=== PATIENT | female | born 1955 | race Caucasian/White ===

== ENCOUNTER 2016-11-14 21:14 | Emergency (ER) | payer MEDICAID ==
[~2016-11-14] VITALS: Ht 157.5 cm; Wt 77.0 kg
[~2016-11-14 21:14] MED LIST: AMLO-512 PO; DIVA250T25 PO; HYDR25TA84 PO; LISI-662 PO; OMEP20 PO; ZIPR80CA2 PO
[2016-11-14 23:50] LABS: EOSINOPHILS % (AUTO) 0.4 % (1.0-6.0); HEMATOCRIT 37.4 % (36-46); HEMOGLOBIN 12.5 g/dL (12.0-16.0); LYMPHOCYTES # (AUTO) 1.1 K/uL (1.0-4.8); LYMPHOCYTES % (AUTO) 15.4 % (22.0-44.0); MEAN CORPUSCULAR HEMOGLOBIN 32.1 pg (26.0-34.0); MEAN CORPUSCULAR HGB CONC 33.3 G/dL (31.0-37.0); MEAN CORPUSCULAR VOLUME 96 fL (80-100); MONOCYTES # (AUTO) 0.5 K/uL (0.1-1.0); MONOCYTES % (AUTO) 7.1 % (2.0-9.0); NEUTROPHILS # (AUTO) 5.4 K/uL (1.8-7.7); NEUTROPHILS % (AUTO) 77.1 % (40.0-70.0); PLATELET COUNT (AUTO) 251 K/uL (150-450); RED BLOOD CELL COUNT(AUTO) 3.88 MIL/uL (4.00-5.20); RED CELL DISTRIBUTION WIDTH 13.8 % (11.5-14.5)
[2016-11-15 00:10] LABS: ANION GAP 9 mmol/L (8-16); CALCIUM, TOTAL 8.9 mg/dL (8.8-10.5); CARBON DIOXIDE 27 mmol/L (22-29); CHLORIDE 101 mmol/L (98-107); CREATININE 0.95 mg/dL (0.60-1.30); GLOMERULAR FILTR. RATE CALC 60 mL/min (>60); POTASSIUM 3.6 mmol/L (3.5-5.1); SODIUM SERUM 137 mmol/L (136-145); UREA NITROGEN, BLOOD 21 mg/dL (7-18)
[2016-11-15 00:16] LABS: ALANINE AMINOTRANSFERASE 22 U/L (12-78); ALBUMIN 3.6 g/dL (3.4-5.0); ASPARTATE AMINOTRANSFERASE 16 U/L (15-37); BILIRUBIN,TOTAL 0.6 mg/dL (0.1-1.0); TOTAL PROTEIN, SERUM 6.5 g/dL (6.4-8.2)
[2016-11-15 00:17] LABS: VALPROIC ACID < 3 mcg/mL (50-100)
[2016-11-15 01:47] VITALS: BP 148/63
== END 2016-11-15 01:48 | disposition home or self-care (01) ==
LOC: EMS 21:15
DX: F20.9 Schizophrenia, unspecified (principal); R46.89 Other symptoms and signs involving appearance and behavior; I10 Essential (primary) hypertension; F14.90 Cocaine use, unspecified, uncomplicated; F17.210 Nicotine dependence, cigarettes, uncomplicated
CPT/HCPCS: 36415; 80053; 80164; 80307; 85025; 99285; 99406; G0480

== ENCOUNTER 2017-05-12 17:16 | Inpatient (IN) | payer MEDICAID ==
[~2017-05-12] VITALS: Ht 160 cm; Wt 98.4 kg
[2017-05-12 18:30] VITALS: BP 95/61
[2017-05-12] MEDS ORDERED: PNEUMOCOCCAL VACCINE POLYVALENT 0.5 ML VIAL [PPSV23] IM ONE (18:45)
[2017-05-12] MEDS ORDERED: INFLUENZA VIRUS VACCINE QVS 2017-18 (3YR+)/PF 60 MCG/0.5 ML SYRINGE IM ONE (18:45)
[2017-05-12] MEDS: DiphenhydrAMINE HCL 25 MG CAPSULE PO SCH ×2 (20:30→21:00)
[2017-05-12] MEDS: DIVALPROEX SODIUM 500 MG ER TABLET PO SCH ×2 (20:30→21:00)
[2017-05-13 06:12] VITALS: BP 138/77
[2017-05-13] MEDS: OMEPRAZOLE 20 MG CAPSULE PO SCH (06:30)
[2017-05-13] MEDS: ZIPRASIDONE HCL 60 MG CAPSULE PO SCH ×2 (07:00→17:00)
[2017-05-13 08:35] LABS: BASOPHILS # (AUTO) 0.03 K/uL (0.00-0.20); BASOPHILS % (AUTO) 0.6 % (0.0-2.0); EOSINOPHILS # (AUTO) 0.07 K/uL (0.00-0.70); EOSINOPHILS % (AUTO) 1.63 % (1.0-6.0); HEMATOCRIT 38.1 % (36-46); HEMOGLOBIN 12.6 g/dL (12.0-16.0); LYMPHOCYTES # (AUTO) 1.1 K/uL (1.0-4.8); LYMPHOCYTES % (AUTO) 24.1 % (22.0-44.0); MEAN CORPUSCULAR HEMOGLOBIN 32.8 pg (26.0-34.0); MEAN CORPUSCULAR VOLUME 99 fL (80-100); MONOCYTES # (AUTO) 0.5 K/uL (0.1-1.0); MONOCYTES % (AUTO) 10.2 % (2.0-9.0); NEUTROPHILS # (AUTO) 2.8 K/uL (1.8-7.7); NEUTROPHILS % (AUTO) 63.4 % (40.0-70.0); PLATELET COUNT (AUTO) 251 K/uL (150-450); RED BLOOD CELL COUNT(AUTO) 3.84 MIL/uL (4.00-5.20)
[2017-05-13 08:39] LABS: HEMOGLOBIN A1C 5.9 % (4.5-6.2)
[2017-05-13] MEDS: NYSTATIN 15 GM POWDER BOTTLE TP SCH ×2 (09:00→17:00)
[2017-05-13] MEDS: HydrALAZINE HCL 25 MG TABLET PO SCH ×3 (09:00→16:51)
[2017-05-13] MEDS: LISINOPRIL 20 MG TABLET PO SCH (09:00)
[2017-05-13] MEDS ORDERED: AmLODIPine BESYLATE 10 MG TABLET PO SCH (09:00)
[2017-05-13 09:04] LABS: ALANINE AMINOTRANSFERASE 21 U/L (12-78); ALBUMIN 3.2 g/dL (3.4-5.0); ALKALINE PHOSPHATASE 59 U/L (46-116); ANION GAP 7 mmol/L (8-16); ASPARTATE AMINOTRANSFERASE 16 U/L (15-37); BILIRUBIN,TOTAL 0.4 mg/dL (0.1-1.0); CARBON DIOXIDE 28 mmol/L (22-29); CHLORIDE 105 mmol/L (98-107); CHOLESTEROL 158 mg/dL (131-200); CREATININE 0.76 mg/dL (0.60-1.30); FREE T4 (FREE THYROXINE) 0.94 ng/dL (0.76-1.46); GLOMERULAR FILTR. RATE CALC > 60 mL/min (>60); GLUCOSE,RANDOM 94 mg/dL (70-110); HDL CHOLESTEROL 80 mg/dL (40-60); LDL CHOL (CALC.) 64 mg/dL (0-130); POTASSIUM 4.7 mmol/L (3.5-5.1); SODIUM SERUM 140 mmol/L (136-145); THYROID STIMULATING HORMONE 1.06 uIU/mL (0.36-3.74); TOTAL PROTEIN, SERUM 5.9 g/dL (6.4-8.2); TRIGLYCERIDES 68 mg/dL (15-150); UREA NITROGEN, BLOOD 19 mg/dL (7-18)
[2017-05-13 09:25] VITALS: BP 165/75
[2017-05-13] MEDS ORDERED: IBUPROFEN 600 MG TABLET PO PRN (13:15)
[2017-05-13] MEDS ORDERED: LOPERAMIDE HCL 2 MG CAPSULE PO PRN (13:15)
[2017-05-13] MEDS ORDERED: MAG HYDROX/AL HYDROX/SIMETH ES 30 ML SUSPENSION UDCUP PO PRN (13:15)
[2017-05-13] MEDS ORDERED: BACITRACIN 28.4 GM OINTMENT TP PRN (13:15)
[2017-05-13] MEDS ORDERED: MAGNESIUM HYDROXIDE SUSPENSION 30 ML UDCUP PO PRN (13:15)
[2017-05-13] MEDS ORDERED: CloNIDine HCL 0.1 MG TABLET PO PRN (13:15)
[2017-05-13] MEDS ORDERED: ACETAMINOPHEN 325 MG TABLET PO PRN (13:15)
[2017-05-13] MEDS ORDERED: ALBUTEROL SULFATE HFA 90 MCG/PUFF 8 GM INHALER IH PRN (13:15)
[2017-05-13] MEDS ORDERED: ONDANSETRON HCL 4 MG TABLET PO PRN (13:15)
[2017-05-13] MEDS ORDERED: BENZOCAINE/MENTHOL LOZENGE MM PRN (13:15)
[2017-05-13] MEDS ORDERED: PETROLATUM,WHITE 71 GM JELLY TP PRN (13:15)
[2017-05-13] MEDS: CEPHALEXIN MONOHYDRATE 500 MG CAPSULE PO SCH (17:00)
[2017-05-13] MEDS: DIVALPROEX SODIUM 500 MG ER TABLET PO SCH (21:00)
[2017-05-13] MEDS: DiphenhydrAMINE HCL 25 MG CAPSULE PO SCH (21:00)
[2017-05-14 06:14] VITALS: BP 135/81
[2017-05-14] MEDS: OMEPRAZOLE 20 MG CAPSULE PO SCH (06:22)
[2017-05-14] MEDS: ZIPRASIDONE HCL 60 MG CAPSULE PO SCH ×2 (06:23→16:21)
[2017-05-14 08:48] VITALS: BP 129/84
[2017-05-14] MEDS: NYSTATIN 15 GM POWDER BOTTLE TP SCH ×2 (09:00→16:22)
[2017-05-14] MEDS: LISINOPRIL 20 MG TABLET PO SCH (09:04)
[2017-05-14] MEDS: LORazepam 2 MG TABLET PO PRN (09:04)
[2017-05-14] MEDS: CHOLECALCIFEROL (VIT D3) 1,000 UNITS TABLET PO SCH (09:04)
[2017-05-14] MEDS: CEPHALEXIN MONOHYDRATE 500 MG CAPSULE PO SCH ×3 (09:04→16:21)
[2017-05-14] MEDS: HydrALAZINE HCL 25 MG TABLET PO SCH ×3 (09:04→16:21)
[2017-05-14 16:00] VITALS: BP 151/60
[2017-05-14] MEDS: DiphenhydrAMINE HCL 25 MG CAPSULE PO SCH (21:00)
[2017-05-14] MEDS: DIVALPROEX SODIUM 500 MG ER TABLET PO SCH (21:00)
[2017-05-15] MEDS: OMEPRAZOLE 20 MG CAPSULE PO SCH (06:30)
[2017-05-15] MEDS: ZIPRASIDONE HCL 60 MG CAPSULE PO SCH ×2 (06:41→16:34)
[2017-05-15] MEDS: HydrALAZINE HCL 25 MG TABLET PO SCH ×3 (08:30→16:34)
[2017-05-15] MEDS: LISINOPRIL 20 MG TABLET PO SCH (08:30)
[2017-05-15] MEDS: CEPHALEXIN MONOHYDRATE 500 MG CAPSULE PO SCH ×3 (08:30→16:34)
[2017-05-15] MEDS: CHOLECALCIFEROL (VIT D3) 1,000 UNITS TABLET PO SCH (08:30)
[2017-05-15] MEDS: NYSTATIN 15 GM POWDER BOTTLE TP SCH ×2 (09:00→17:00)
[2017-05-15 16:18] VITALS: BP 141/88
[2017-05-15] MEDS: DIVALPROEX SODIUM 500 MG ER TABLET PO SCH (21:14)
[2017-05-15] MEDS: DiphenhydrAMINE HCL 25 MG CAPSULE PO SCH (21:14)
[2017-05-16] MEDS: OMEPRAZOLE 20 MG CAPSULE PO SCH (06:30)
[2017-05-16] MEDS: ZIPRASIDONE HCL 60 MG CAPSULE PO SCH ×2 (07:18→16:29)
[2017-05-16] MEDS: LISINOPRIL 20 MG TABLET PO SCH (08:28)
[2017-05-16] MEDS: CEPHALEXIN MONOHYDRATE 500 MG CAPSULE PO SCH ×3 (08:28→16:29)
[2017-05-16] MEDS: CHOLECALCIFEROL (VIT D3) 1,000 UNITS TABLET PO SCH (08:29)
[2017-05-16] MEDS: HydrALAZINE HCL 25 MG TABLET PO SCH ×3 (08:29→16:29)
[2017-05-16 08:51] VITALS: BP 125/84
[2017-05-16] MEDS: NYSTATIN 15 GM POWDER BOTTLE TP SCH ×2 (09:00→16:29)
[2017-05-16 16:42] VITALS: BP 123/77
[2017-05-16] MEDS: DIVALPROEX SODIUM 500 MG ER TABLET PO SCH (20:17)
[2017-05-16] MEDS: DiphenhydrAMINE HCL 25 MG CAPSULE PO SCH (20:17)
[2017-05-17 06:13] VITALS: BP 135/62
[2017-05-17] MEDS: ZIPRASIDONE HCL 60 MG CAPSULE PO SCH ×2 (06:15→16:23)
[2017-05-17] MEDS: OMEPRAZOLE 20 MG CAPSULE PO SCH (06:15)
[2017-05-17 08:50] VITALS: BP 119/68
[2017-05-17] MEDS: NYSTATIN 15 GM POWDER BOTTLE TP SCH ×2 (09:00→17:00)
[2017-05-17] MEDS: CHOLECALCIFEROL (VIT D3) 1,000 UNITS TABLET PO SCH (09:05)
[2017-05-17] MEDS: HydrALAZINE HCL 25 MG TABLET PO SCH ×3 (09:05→16:23)
[2017-05-17] MEDS: CEPHALEXIN MONOHYDRATE 500 MG CAPSULE PO SCH ×3 (09:05→16:23)
[2017-05-17] MEDS: LISINOPRIL 20 MG TABLET PO SCH (09:05)
[2017-05-17 16:30] VITALS: BP 140/81
[2017-05-17] MEDS: DiphenhydrAMINE HCL 25 MG CAPSULE PO SCH (20:21)
[2017-05-17] MEDS: DIVALPROEX SODIUM 500 MG ER TABLET PO SCH (20:21)
[2017-05-18 06:09] VITALS: BP 141/83
[2017-05-18] MEDS: OMEPRAZOLE 20 MG CAPSULE PO SCH (06:28)
[2017-05-18] MEDS: ZIPRASIDONE HCL 80 MG CAPSULE PO SCH ×2 (06:28→16:29)
[2017-05-18 08:44] VITALS: BP 122/71
[2017-05-18] MEDS: HydrALAZINE HCL 25 MG TABLET PO SCH ×3 (09:00→16:29)
[2017-05-18] MEDS: CEPHALEXIN MONOHYDRATE 500 MG CAPSULE PO SCH ×4 (09:00→16:29)
[2017-05-18] MEDS: CHOLECALCIFEROL (VIT D3) 1,000 UNITS TABLET PO SCH (09:00)
[2017-05-18] MEDS: LISINOPRIL 20 MG TABLET PO SCH (09:00)
[2017-05-18] MEDS: NYSTATIN 15 GM POWDER BOTTLE TP SCH ×2 (09:00→17:00)
[2017-05-18 16:28] VITALS: BP 125/86
[2017-05-18] MEDS: DIVALPROEX SODIUM 500 MG ER TABLET PO SCH (20:37)
[2017-05-18] MEDS: DiphenhydrAMINE HCL 25 MG CAPSULE PO SCH (20:37)
[2017-05-19 00:54] VITALS: BP 110/59
[2017-05-19] MEDS: OMEPRAZOLE 20 MG CAPSULE PO SCH (06:42)
[2017-05-19] MEDS: ZIPRASIDONE HCL 80 MG CAPSULE PO SCH ×2 (06:42→16:56)
[2017-05-19 08:17] VITALS: BP 108/63
[2017-05-19] MEDS: CEPHALEXIN MONOHYDRATE 500 MG CAPSULE PO SCH ×3 (08:36→16:56)
[2017-05-19] MEDS: HydrALAZINE HCL 25 MG TABLET PO SCH ×3 (08:36→16:56)
[2017-05-19] MEDS: LISINOPRIL 20 MG TABLET PO SCH ×2 (08:36→09:00)
[2017-05-19] MEDS: CHOLECALCIFEROL (VIT D3) 1,000 UNITS TABLET PO SCH (08:36)
[2017-05-19] MEDS: NYSTATIN 15 GM POWDER BOTTLE TP SCH ×2 (08:36→16:56)
[2017-05-19 17:25] VITALS: BP 143/74
[2017-05-19] MEDS: DIVALPROEX SODIUM 500 MG ER TABLET PO SCH (20:18)
[2017-05-19] MEDS: DiphenhydrAMINE HCL 25 MG CAPSULE PO SCH (20:18)
[2017-05-20] MEDS: ZIPRASIDONE HCL 80 MG CAPSULE PO SCH ×2 (06:24→17:42)
[2017-05-20] MEDS: OMEPRAZOLE 20 MG CAPSULE PO SCH (06:24)
[2017-05-20 08:38] VITALS: BP 130/68
[2017-05-20] MEDS: NYSTATIN 15 GM POWDER BOTTLE TP SCH ×2 (09:00→17:42)
[2017-05-20] MEDS: LISINOPRIL 20 MG TABLET PO SCH (09:39)
[2017-05-20] MEDS: CEPHALEXIN MONOHYDRATE 500 MG CAPSULE PO SCH ×3 (09:39→17:42)
[2017-05-20] MEDS: HydrALAZINE HCL 25 MG TABLET PO SCH ×3 (09:39→17:42)
[2017-05-20] MEDS: CHOLECALCIFEROL (VIT D3) 1,000 UNITS TABLET PO SCH (09:39)
[2017-05-20 16:00] VITALS: BP 104/60
[2017-05-20] MEDS: DiphenhydrAMINE HCL 25 MG CAPSULE PO SCH (20:17)
[2017-05-20] MEDS: DIVALPROEX SODIUM 500 MG ER TABLET PO SCH (20:17)
[2017-05-21] MEDS: ZIPRASIDONE HCL 80 MG CAPSULE PO SCH ×2 (06:33→16:15)
[2017-05-21] MEDS: OMEPRAZOLE 20 MG CAPSULE PO SCH (06:33)
[2017-05-21 07:06] VITALS: BP 114/62
[2017-05-21 08:43] VITALS: BP 126/72
[2017-05-21] MEDS: CEPHALEXIN MONOHYDRATE 500 MG CAPSULE PO SCH ×3 (09:09→16:15)
[2017-05-21] MEDS: CHOLECALCIFEROL (VIT D3) 1,000 UNITS TABLET PO SCH (09:10)
[2017-05-21] MEDS: NYSTATIN 15 GM POWDER BOTTLE TP SCH ×2 (09:10→16:15)
[2017-05-21] MEDS: HydrALAZINE HCL 25 MG TABLET PO SCH ×3 (09:10→16:15)
[2017-05-21] MEDS: LISINOPRIL 20 MG TABLET PO SCH (09:10)
[2017-05-21 16:46] VITALS: BP 153/88
[2017-05-21 18:43] VITALS: BP 138/60
[2017-05-21] MEDS: DiphenhydrAMINE HCL 25 MG CAPSULE PO SCH (20:34)
[2017-05-21] MEDS: DIVALPROEX SODIUM 500 MG ER TABLET PO SCH (20:34)
[2017-05-22] MEDS: ZIPRASIDONE HCL 80 MG CAPSULE PO SCH ×2 (06:22→16:44)
[2017-05-22] MEDS: OMEPRAZOLE 20 MG CAPSULE PO SCH (06:22)
[2017-05-22 08:16] VITALS: BP 122/51
[2017-05-22 08:30] VITALS: BP 141/79
[2017-05-22] MEDS: LISINOPRIL 20 MG TABLET PO SCH (08:40)
[2017-05-22] MEDS: NYSTATIN 15 GM POWDER BOTTLE TP SCH ×2 (08:40→17:27)
[2017-05-22] MEDS: HydrALAZINE HCL 25 MG TABLET PO SCH ×3 (08:40→16:44)
[2017-05-22] MEDS: CHOLECALCIFEROL (VIT D3) 1,000 UNITS TABLET PO SCH (08:40)
[2017-05-22] MEDS: CEPHALEXIN MONOHYDRATE 500 MG CAPSULE PO SCH ×3 (08:40→16:44)
[2017-05-22 17:31] VITALS: BP 145/88
[2017-05-22] MEDS: DiphenhydrAMINE HCL 25 MG CAPSULE PO SCH (20:29)
[2017-05-22] MEDS: DIVALPROEX SODIUM 500 MG ER TABLET PO SCH (20:29)
[2017-05-23] MEDS: OMEPRAZOLE 20 MG CAPSULE PO SCH (06:46)
[2017-05-23] MEDS: ZIPRASIDONE HCL 80 MG CAPSULE PO SCH ×2 (06:46→16:29)
[2017-05-23 07:11] VITALS: BP 147/84
[2017-05-23] MEDS: CHOLECALCIFEROL (VIT D3) 1,000 UNITS TABLET PO SCH (08:14)
[2017-05-23] MEDS: CEPHALEXIN MONOHYDRATE 500 MG CAPSULE PO SCH ×2 (08:14→13:29)
[2017-05-23] MEDS: LISINOPRIL 20 MG TABLET PO SCH (08:14)
[2017-05-23] MEDS: NYSTATIN 15 GM POWDER BOTTLE TP SCH ×2 (08:14→17:04)
[2017-05-23] MEDS: HydrALAZINE HCL 25 MG TABLET PO SCH ×3 (08:15→16:29)
[2017-05-23 08:30] VITALS: BP 151/95
[2017-05-23 16:00] VITALS: BP 135/79
[2017-05-23] MEDS: DIVALPROEX SODIUM 500 MG ER TABLET PO SCH (20:20)
[2017-05-23] MEDS: DiphenhydrAMINE HCL 25 MG CAPSULE PO SCH (20:20)
[2017-05-24] MEDS: OMEPRAZOLE 20 MG CAPSULE PO SCH (05:49)
[2017-05-24] MEDS: ZIPRASIDONE HCL 80 MG CAPSULE PO SCH ×2 (06:34→16:57)
[2017-05-24 06:52] VITALS: BP 137/77
[2017-05-24] MEDS: LISINOPRIL 20 MG TABLET PO SCH (08:23)
[2017-05-24] MEDS: NYSTATIN 15 GM POWDER BOTTLE TP SCH ×2 (08:23→16:59)
[2017-05-24] MEDS: CHOLECALCIFEROL (VIT D3) 1,000 UNITS TABLET PO SCH (08:23)
[2017-05-24] MEDS: HydrALAZINE HCL 25 MG TABLET PO SCH ×3 (08:23→16:57)
[2017-05-24 08:25] VITALS: BP 130/75
[2017-05-24 16:30] VITALS: BP 127/92
[2017-05-24] MEDS: DiphenhydrAMINE HCL 25 MG CAPSULE PO SCH (20:07)
[2017-05-24] MEDS: DIVALPROEX SODIUM 500 MG ER TABLET PO SCH (20:07)
[2017-05-25] MEDS: ZIPRASIDONE HCL 80 MG CAPSULE PO SCH ×2 (06:33→17:05)
[2017-05-25] MEDS: OMEPRAZOLE 20 MG CAPSULE PO SCH (06:33)
[2017-05-25 09:20] VITALS: BP 150/85
[2017-05-25] MEDS: HydrALAZINE HCL 25 MG TABLET PO SCH ×3 (09:34→17:05)
[2017-05-25] MEDS: LISINOPRIL 20 MG TABLET PO SCH (09:34)
[2017-05-25] MEDS: CHOLECALCIFEROL (VIT D3) 1,000 UNITS TABLET PO SCH (09:34)
[2017-05-25] MEDS: NYSTATIN 15 GM POWDER BOTTLE TP SCH ×2 (09:35→17:05)
[2017-05-25 16:20] VITALS: BP 146/72
[2017-05-25 18:06] VITALS: BP 142/74
[2017-05-25] MEDS: DiphenhydrAMINE HCL 25 MG CAPSULE PO SCH (20:54)
[2017-05-25] MEDS: DIVALPROEX SODIUM 500 MG ER TABLET PO SCH (20:54)
[2017-05-26 06:07] VITALS: BP 127/58
[2017-05-26] MEDS: OMEPRAZOLE 20 MG CAPSULE PO SCH (06:34)
[2017-05-26] MEDS: ZIPRASIDONE HCL 80 MG CAPSULE PO SCH ×2 (06:34→16:31)
[2017-05-26] MEDS: HydrALAZINE HCL 25 MG TABLET PO SCH ×3 (08:37→16:31)
[2017-05-26] MEDS: NYSTATIN 15 GM POWDER BOTTLE TP SCH ×2 (08:37→17:17)
[2017-05-26] MEDS: LISINOPRIL 20 MG TABLET PO SCH (08:38)
[2017-05-26] MEDS: CHOLECALCIFEROL (VIT D3) 1,000 UNITS TABLET PO SCH (08:38)
[2017-05-26 12:38] VITALS: BP 109/61
[2017-05-26 16:04] VITALS: BP 131/98
[2017-05-26] MEDS: DIVALPROEX SODIUM 500 MG ER TABLET PO SCH (20:07)
[2017-05-26] MEDS: DiphenhydrAMINE HCL 25 MG CAPSULE PO SCH (20:08)
[2017-05-27 05:07] VITALS: BP 127/76
[2017-05-27] MEDS: OMEPRAZOLE 20 MG CAPSULE PO SCH (06:30)
[2017-05-27] MEDS: ZIPRASIDONE HCL 80 MG CAPSULE PO SCH ×2 (06:30→16:14)
[2017-05-27] MEDS: LISINOPRIL 20 MG TABLET PO SCH (08:16)
[2017-05-27] MEDS: HydrOXYzine PAMOATE 25 MG CAPSULE PO SCH ×2 (08:16→16:14)
[2017-05-27] MEDS: HydrALAZINE HCL 25 MG TABLET PO SCH ×3 (08:16→16:14)
[2017-05-27] MEDS: CHOLECALCIFEROL (VIT D3) 1,000 UNITS TABLET PO SCH (08:16)
[2017-05-27] MEDS: NYSTATIN 15 GM POWDER BOTTLE TP SCH ×2 (08:16→16:15)
[2017-05-27 08:22] VITALS: BP 150/86
[2017-05-27 16:09] VITALS: BP 131/75
[2017-05-27] MEDS: DIVALPROEX SODIUM 500 MG ER TABLET PO SCH (20:12)
[2017-05-27] MEDS: DiphenhydrAMINE HCL 25 MG CAPSULE PO SCH (20:12)
[2017-05-28] MEDS: ZIPRASIDONE HCL 80 MG CAPSULE PO SCH ×2 (06:22→16:18)
[2017-05-28] MEDS: OMEPRAZOLE 20 MG CAPSULE PO SCH (06:22)
[2017-05-28 06:59] VITALS: BP 140/70
[2017-05-28] MEDS: HydrALAZINE HCL 25 MG TABLET PO SCH ×3 (09:54→16:18)
[2017-05-28] MEDS: HydrOXYzine PAMOATE 25 MG CAPSULE PO SCH ×2 (09:54→16:18)
[2017-05-28] MEDS: CHOLECALCIFEROL (VIT D3) 1,000 UNITS TABLET PO SCH (09:54)
[2017-05-28] MEDS: NYSTATIN 15 GM POWDER BOTTLE TP SCH ×2 (09:55→16:18)
[2017-05-28] MEDS: LISINOPRIL 20 MG TABLET PO SCH (09:56)
[2017-05-28 10:10] VITALS: BP 129/52
[2017-05-28 13:25] VITALS: BP 11/65
[2017-05-28 16:17] VITALS: BP 126/68
[2017-05-28] MEDS: DIVALPROEX SODIUM 500 MG ER TABLET PO SCH (20:10)
[2017-05-28] MEDS: DiphenhydrAMINE HCL 25 MG CAPSULE PO SCH (20:10)
[2017-05-29] MEDS: ZIPRASIDONE HCL 80 MG CAPSULE PO SCH ×2 (06:25→16:01)
[2017-05-29] MEDS: OMEPRAZOLE 20 MG CAPSULE PO SCH (06:25)
[2017-05-29] MEDS: HydrOXYzine PAMOATE 25 MG CAPSULE PO SCH ×2 (08:13→16:01)
[2017-05-29] MEDS: LISINOPRIL 20 MG TABLET PO SCH (08:13)
[2017-05-29] MEDS: HydrALAZINE HCL 25 MG TABLET PO SCH ×3 (08:14→16:01)
[2017-05-29] MEDS: CHOLECALCIFEROL (VIT D3) 1,000 UNITS TABLET PO SCH (08:14)
[2017-05-29] MEDS: NYSTATIN 15 GM POWDER BOTTLE TP SCH ×2 (08:14→16:01)
[2017-05-29 08:27] VITALS: BP 145/63
[2017-05-29 08:43] LABS: ANION GAP 7 mmol/L (8-16); CALCIUM, TOTAL 9.7 mg/dL (8.8-10.5); CARBON DIOXIDE 33 mmol/L (22-29); CHLORIDE 101 mmol/L (98-107); CREATININE 0.85 mg/dL (0.60-1.30); GLOMERULAR FILTR. RATE CALC > 60 mL/min (>60); GLUCOSE,RANDOM 96 mg/dL (70-110); PHOSPHORUS 4.5 mg/dL (2.5-4.9); POTASSIUM 4.9 mmol/L (3.5-5.1); SODIUM SERUM 141 mmol/L (136-145); UREA NITROGEN, BLOOD 31 mg/dL (7-18)
[2017-05-29 08:50] LABS: HEMATOCRIT 42.5 % (36-46); HEMOGLOBIN 14.5 g/dL (12.0-16.0); MEAN CORPUSCULAR HEMOGLOBIN 32.9 pg (26.0-34.0); MEAN CORPUSCULAR VOLUME 97 fL (80-100); PLATELET COUNT (AUTO) 173 K/uL (150-450); RED BLOOD CELL COUNT(AUTO) 4.39 MIL/uL (4.00-5.20); RED CELL DISTRIBUTION WIDTH 13.1 % (11.5-14.5)
[2017-05-29 09:48] LABS: EOSINOPHILS % (MANUAL) 1 % (1-6); LYMPHOCYTES % (MANUAL) 31 % (22-44); MONOCYTES % (MANUAL) 12 % (2-9); SEGMENTED NEUTROPHILS % 56 % (40-70)
[2017-05-29 16:07] VITALS: BP 119/63
[2017-05-29] MEDS: DIVALPROEX SODIUM 500 MG ER TABLET PO SCH (20:06)
[2017-05-29] MEDS: DiphenhydrAMINE HCL 25 MG CAPSULE PO SCH (20:06)
[2017-05-30 06:20] VITALS: BP 128/65
[2017-05-30] MEDS: OMEPRAZOLE 20 MG CAPSULE PO SCH (06:36)
[2017-05-30] MEDS: ZIPRASIDONE HCL 80 MG CAPSULE PO SCH ×2 (07:01→16:03)
[2017-05-30] MEDS: LISINOPRIL 20 MG TABLET PO SCH (08:28)
[2017-05-30] MEDS: HydrOXYzine PAMOATE 25 MG CAPSULE PO SCH ×2 (08:28→16:03)
[2017-05-30] MEDS: CHOLECALCIFEROL (VIT D3) 1,000 UNITS TABLET PO SCH (08:28)
[2017-05-30] MEDS: HydrALAZINE HCL 25 MG TABLET PO SCH ×3 (08:28→16:03)
[2017-05-30] MEDS: NYSTATIN 15 GM POWDER BOTTLE TP SCH ×2 (08:29→16:03)
[2017-05-30 08:51] VITALS: BP 114/95
[2017-05-30 16:37] VITALS: BP 147/87
[2017-05-30] MEDS: LORazepam 2 MG TABLET PO PRN (17:32)
[2017-05-30] MEDS: DiphenhydrAMINE HCL 25 MG CAPSULE PO SCH (20:01)
[2017-05-30] MEDS: DIVALPROEX SODIUM 500 MG ER TABLET PO SCH (20:01)
[2017-05-31 06:20] VITALS: BP 132/79
[2017-05-31] MEDS: OMEPRAZOLE 20 MG CAPSULE PO SCH (06:28)
[2017-05-31] MEDS: ZIPRASIDONE HCL 80 MG CAPSULE PO SCH ×2 (06:48→16:19)
[2017-05-31] MEDS: CHOLECALCIFEROL (VIT D3) 1,000 UNITS TABLET PO SCH (08:02)
[2017-05-31] MEDS: NYSTATIN 15 GM POWDER BOTTLE TP SCH ×2 (08:02→16:20)
[2017-05-31] MEDS: LISINOPRIL 20 MG TABLET PO SCH (08:03)
[2017-05-31] MEDS: HydrALAZINE HCL 25 MG TABLET PO SCH ×3 (08:03→16:19)
[2017-05-31] MEDS: HydrOXYzine PAMOATE 25 MG CAPSULE PO SCH ×2 (08:03→16:19)
[2017-05-31 08:09] VITALS: BP 155/72
[2017-05-31] MEDS ORDERED: DIPH50 PO (12:46)
[2017-05-31] MEDS ORDERED: HYDR-4031 PO (12:47)
[2017-05-31 13:06] VITALS: BP 109/60
[2017-05-31 16:08] VITALS: BP 125/89
[2017-05-31] MEDS: DiphenhydrAMINE HCL 25 MG CAPSULE PO SCH (20:17)
[2017-05-31] MEDS: DIVALPROEX SODIUM 500 MG ER TABLET PO SCH (20:18)
[2017-06-01] MEDS: OMEPRAZOLE 20 MG CAPSULE PO SCH (06:36)
[2017-06-01] MEDS: ZIPRASIDONE HCL 80 MG CAPSULE PO SCH ×2 (06:37→16:06)
[2017-06-01 08:02] VITALS: BP 151/69
[2017-06-01] MEDS: HydrALAZINE HCL 25 MG TABLET PO SCH ×3 (08:35→16:04)
[2017-06-01] MEDS: HydrOXYzine PAMOATE 25 MG CAPSULE PO SCH ×2 (08:35→16:04)
[2017-06-01] MEDS: CHOLECALCIFEROL (VIT D3) 1,000 UNITS TABLET PO SCH (08:35)
[2017-06-01] MEDS: NYSTATIN 15 GM POWDER BOTTLE TP SCH ×2 (08:36→16:04)
[2017-06-01] MEDS: LISINOPRIL 20 MG TABLET PO SCH (08:36)
[2017-06-01 16:00] VITALS: BP 139/75
[2017-06-01] MEDS: DiphenhydrAMINE HCL 25 MG CAPSULE PO SCH (20:07)
[2017-06-01] MEDS: DIVALPROEX SODIUM 500 MG ER TABLET PO SCH (20:07)
[2017-06-02 01:21] VITALS: BP 127/63
[2017-06-02] MEDS: OMEPRAZOLE 20 MG CAPSULE PO SCH (07:21)
[2017-06-02] MEDS: ZIPRASIDONE HCL 80 MG CAPSULE PO SCH ×2 (07:21→16:16)
[2017-06-02] MEDS: CHOLECALCIFEROL (VIT D3) 1,000 UNITS TABLET PO SCH (09:05)
[2017-06-02] MEDS: HydrALAZINE HCL 25 MG TABLET PO SCH ×3 (09:05→16:16)
[2017-06-02] MEDS: HydrOXYzine PAMOATE 25 MG CAPSULE PO SCH ×2 (09:05→16:16)
[2017-06-02] MEDS: LISINOPRIL 20 MG TABLET PO SCH (09:06)
[2017-06-02] MEDS: NYSTATIN 15 GM POWDER BOTTLE TP SCH ×2 (09:06→16:16)
[2017-06-02 09:16] VITALS: BP 138/79
[2017-06-02 13:30] VITALS: BP 131/86
[2017-06-02 16:03] VITALS: BP 132/66
[2017-06-02] MEDS: DIVALPROEX SODIUM 500 MG ER TABLET PO SCH (20:13)
[2017-06-02] MEDS: DiphenhydrAMINE HCL 25 MG CAPSULE PO SCH (20:13)
[2017-06-03] MEDS: OMEPRAZOLE 20 MG CAPSULE PO SCH (06:26)
[2017-06-03] MEDS: ZIPRASIDONE HCL 80 MG CAPSULE PO SCH ×2 (06:30→16:02)
[2017-06-03 07:12] VITALS: BP 134/62
[2017-06-03] MEDS: NYSTATIN 15 GM POWDER BOTTLE TP SCH ×2 (08:30→16:03)
[2017-06-03] MEDS: CHOLECALCIFEROL (VIT D3) 1,000 UNITS TABLET PO SCH (08:30)
[2017-06-03] MEDS: HydrOXYzine PAMOATE 25 MG CAPSULE PO SCH ×2 (08:30→16:03)
[2017-06-03] MEDS: HydrALAZINE HCL 25 MG TABLET PO SCH ×3 (08:30→16:03)
[2017-06-03] MEDS: LISINOPRIL 20 MG TABLET PO SCH (08:31)
[2017-06-03 12:40] VITALS: BP 157/86
[2017-06-03 14:13] VITALS: BP 104/74
[2017-06-03 16:05] VITALS: BP 132/72
[2017-06-03] MEDS: DiphenhydrAMINE HCL 25 MG CAPSULE PO SCH (20:13)
[2017-06-03] MEDS: DIVALPROEX SODIUM 500 MG ER TABLET PO SCH (20:13)
[2017-06-04] MEDS: OMEPRAZOLE 20 MG CAPSULE PO SCH (06:46)
[2017-06-04] MEDS: ZIPRASIDONE HCL 80 MG CAPSULE PO SCH ×2 (06:47→16:12)
[2017-06-04 07:11] VITALS: BP 131/75
[2017-06-04] MEDS: LISINOPRIL 20 MG TABLET PO SCH (08:00)
[2017-06-04] MEDS: HydrALAZINE HCL 25 MG TABLET PO SCH ×3 (08:01→16:12)
[2017-06-04] MEDS: CHOLECALCIFEROL (VIT D3) 1,000 UNITS TABLET PO SCH (08:01)
[2017-06-04] MEDS: HydrOXYzine PAMOATE 25 MG CAPSULE PO SCH ×2 (08:01→16:12)
[2017-06-04] MEDS: NYSTATIN 15 GM POWDER BOTTLE TP SCH ×2 (08:01→16:12)
[2017-06-04 08:06] VITALS: BP 103/60
[2017-06-04 16:10] VITALS: BP 134/87
[2017-06-04] MEDS: DIVALPROEX SODIUM 500 MG ER TABLET PO SCH (20:06)
[2017-06-04] MEDS: DiphenhydrAMINE HCL 25 MG CAPSULE PO SCH (20:06)
[2017-06-05] MEDS: ZIPRASIDONE HCL 80 MG CAPSULE PO SCH ×2 (06:21→16:52)
[2017-06-05] MEDS: OMEPRAZOLE 20 MG CAPSULE PO SCH (06:21)
[2017-06-05] MEDS: HydrOXYzine PAMOATE 25 MG CAPSULE PO SCH ×2 (08:24→16:52)
[2017-06-05] MEDS: LISINOPRIL 20 MG TABLET PO SCH (08:24)
[2017-06-05] MEDS: NYSTATIN 15 GM POWDER BOTTLE TP SCH ×2 (08:25→16:52)
[2017-06-05] MEDS: HydrALAZINE HCL 25 MG TABLET PO SCH ×3 (08:25→16:52)
[2017-06-05] MEDS: CHOLECALCIFEROL (VIT D3) 1,000 UNITS TABLET PO SCH (08:26)
[2017-06-05 08:47] VITALS: BP 124/64
[2017-06-05 16:38] VITALS: BP 127/68
[2017-06-05] MEDS: DiphenhydrAMINE HCL 25 MG CAPSULE PO SCH (20:07)
[2017-06-05] MEDS: DIVALPROEX SODIUM 500 MG ER TABLET PO SCH (20:07)
[2017-06-06 02:14] VITALS: BP 126/74
[2017-06-06] MEDS: OMEPRAZOLE 20 MG CAPSULE PO SCH (06:35)
[2017-06-06] MEDS: ZIPRASIDONE HCL 80 MG CAPSULE PO SCH ×2 (06:35→16:32)
[2017-06-06 08:33] VITALS: BP 133/57
[2017-06-06] MEDS: NYSTATIN 15 GM POWDER BOTTLE TP SCH ×2 (08:52→16:32)
[2017-06-06] MEDS: HydrOXYzine PAMOATE 25 MG CAPSULE PO SCH ×2 (08:52→16:32)
[2017-06-06] MEDS: HydrALAZINE HCL 25 MG TABLET PO SCH ×3 (08:52→16:32)
[2017-06-06] MEDS: LISINOPRIL 20 MG TABLET PO SCH (08:54)
[2017-06-06] MEDS: CHOLECALCIFEROL (VIT D3) 1,000 UNITS TABLET PO SCH (08:55)
[2017-06-06 16:20] VITALS: BP 120/60
[2017-06-06] MEDS: LORazepam 2 MG TABLET PO PRN (17:22)
[2017-06-06] MEDS: DiphenhydrAMINE HCL 25 MG CAPSULE PO SCH (20:16)
[2017-06-06] MEDS: DIVALPROEX SODIUM 500 MG ER TABLET PO SCH (20:16)
[2017-06-07] MEDS: ZIPRASIDONE HCL 80 MG CAPSULE PO SCH ×2 (06:30→16:25)
[2017-06-07] MEDS: OMEPRAZOLE 20 MG CAPSULE PO SCH (06:30)
[2017-06-07 06:33] VITALS: BP 138/69
[2017-06-07] MEDS: LORazepam 2 MG TABLET PO PRN (08:02)
[2017-06-07] MEDS: LISINOPRIL 20 MG TABLET PO SCH (08:02)
[2017-06-07] MEDS: HydrOXYzine PAMOATE 25 MG CAPSULE PO SCH ×2 (08:02→16:25)
[2017-06-07] MEDS: NYSTATIN 15 GM POWDER BOTTLE TP SCH ×2 (08:02→16:25)
[2017-06-07] MEDS: CHOLECALCIFEROL (VIT D3) 1,000 UNITS TABLET PO SCH (08:02)
[2017-06-07] MEDS: ChlorproMAZINE HCL 100 MG TABLET PO PRN (08:02)
[2017-06-07] MEDS: HydrALAZINE HCL 25 MG TABLET PO SCH ×3 (08:02→16:25)
[2017-06-07 08:12] VITALS: BP 128/52
[2017-06-07 19:05] VITALS: BP 109/82
[2017-06-07] MEDS: DiphenhydrAMINE HCL 25 MG CAPSULE PO SCH (20:05)
[2017-06-07] MEDS: DIVALPROEX SODIUM 500 MG ER TABLET PO SCH (20:05)
[2017-06-08 06:08] VITALS: BP 136/80
[2017-06-08] MEDS: OMEPRAZOLE 20 MG CAPSULE PO SCH (06:34)
[2017-06-08] MEDS: ZIPRASIDONE HCL 80 MG CAPSULE PO SCH ×2 (06:35→16:41)
[2017-06-08] MEDS: HydrOXYzine PAMOATE 25 MG CAPSULE PO SCH ×2 (08:06→16:41)
[2017-06-08] MEDS: LISINOPRIL 20 MG TABLET PO SCH (08:06)
[2017-06-08] MEDS: CHOLECALCIFEROL (VIT D3) 1,000 UNITS TABLET PO SCH (08:06)
[2017-06-08] MEDS: HydrALAZINE HCL 25 MG TABLET PO SCH ×3 (08:06→16:41)
[2017-06-08 08:46] VITALS: BP 135/67
[2017-06-08] MEDS: NYSTATIN 15 GM POWDER BOTTLE TP SCH ×2 (09:27→16:41)
[2017-06-08 16:19] VITALS: BP 129/66
[2017-06-08] MEDS: DiphenhydrAMINE HCL 25 MG CAPSULE PO SCH (20:02)
[2017-06-08] MEDS: DIVALPROEX SODIUM 500 MG ER TABLET PO SCH (20:02)
[2017-06-09 06:45] VITALS: BP 102/66
[2017-06-09] MEDS: ZIPRASIDONE HCL 80 MG CAPSULE PO SCH ×2 (06:54→16:23)
[2017-06-09] MEDS: OMEPRAZOLE 20 MG CAPSULE PO SCH (06:54)
[2017-06-09 08:28] VITALS: BP 114/59
[2017-06-09] MEDS: CHOLECALCIFEROL (VIT D3) 1,000 UNITS TABLET PO SCH (08:49)
[2017-06-09] MEDS: HydrOXYzine PAMOATE 25 MG CAPSULE PO SCH ×2 (08:49→16:23)
[2017-06-09] MEDS: HydrALAZINE HCL 25 MG TABLET PO SCH ×3 (08:49→16:23)
[2017-06-09] MEDS: LISINOPRIL 20 MG TABLET PO SCH (08:53)
[2017-06-09] MEDS: NYSTATIN 15 GM POWDER BOTTLE TP SCH ×2 (08:54→16:23)
[2017-06-09 16:00] VITALS: BP 124/73
[2017-06-09] MEDS: DIVALPROEX SODIUM 500 MG ER TABLET PO SCH (20:24)
[2017-06-09] MEDS: DiphenhydrAMINE HCL 25 MG CAPSULE PO SCH (20:24)
[2017-06-10] MEDS: OMEPRAZOLE 20 MG CAPSULE PO SCH (06:13)
[2017-06-10] MEDS: ZIPRASIDONE HCL 80 MG CAPSULE PO SCH ×2 (06:44→16:36)
[2017-06-10 06:46] VITALS: BP 126/79
[2017-06-10] MEDS: LISINOPRIL 20 MG TABLET PO SCH (08:22)
[2017-06-10] MEDS: HydrOXYzine PAMOATE 25 MG CAPSULE PO SCH ×2 (08:23→16:36)
[2017-06-10] MEDS: HydrALAZINE HCL 25 MG TABLET PO SCH ×3 (08:23→16:36)
[2017-06-10] MEDS: NYSTATIN 15 GM POWDER BOTTLE TP SCH ×2 (08:23→16:36)
[2017-06-10] MEDS: CHOLECALCIFEROL (VIT D3) 1,000 UNITS TABLET PO SCH (08:23)
[2017-06-10 08:24] VITALS: BP 123/62
[2017-06-10] MEDS ORDERED: TUBERCULIN, PURIFIED PROTEIN DERIVATIVE 5 TU/0.1 ML SYG ID ONE (11:30)
[2017-06-10 16:00] VITALS: BP 120/57
[2017-06-10] MEDS: DiphenhydrAMINE HCL 25 MG CAPSULE PO SCH (20:08)
[2017-06-10] MEDS: DIVALPROEX SODIUM 500 MG ER TABLET PO SCH (20:08)
[2017-06-11] MEDS: OMEPRAZOLE 20 MG CAPSULE PO SCH (06:13)
[2017-06-11 07:07] VITALS: BP 128/72
[2017-06-11] MEDS: ZIPRASIDONE HCL 80 MG CAPSULE PO SCH ×2 (07:17→16:49)
[2017-06-11 08:09] VITALS: BP 120/61
[2017-06-11] MEDS: HydrOXYzine PAMOATE 25 MG CAPSULE PO SCH ×2 (08:15→16:13)
[2017-06-11] MEDS: LISINOPRIL 20 MG TABLET PO SCH (08:15)
[2017-06-11] MEDS: CHOLECALCIFEROL (VIT D3) 1,000 UNITS TABLET PO SCH (08:15)
[2017-06-11] MEDS: HydrALAZINE HCL 25 MG TABLET PO SCH ×3 (08:15→16:12)
[2017-06-11] MEDS: NYSTATIN 15 GM POWDER BOTTLE TP SCH ×2 (08:16→16:26)
[2017-06-11 16:17] VITALS: BP 125/86
[2017-06-11] MEDS: DiphenhydrAMINE HCL 25 MG CAPSULE PO SCH (20:02)
[2017-06-11] MEDS: DIVALPROEX SODIUM 500 MG ER TABLET PO SCH (20:02)
[2017-06-12] MEDS: OMEPRAZOLE 20 MG CAPSULE PO SCH (06:11)
[2017-06-12 06:30] VITALS: BP 121/66
[2017-06-12] MEDS: ZIPRASIDONE HCL 80 MG CAPSULE PO SCH ×2 (06:31→16:10)
[2017-06-12 08:19] VITALS: BP 108/52
[2017-06-12 08:30] VITALS: BP 111/73
[2017-06-12] MEDS: HydrOXYzine PAMOATE 25 MG CAPSULE PO SCH ×2 (08:55→16:10)
[2017-06-12] MEDS: CHOLECALCIFEROL (VIT D3) 1,000 UNITS TABLET PO SCH (08:55)
[2017-06-12] MEDS: HydrALAZINE HCL 25 MG TABLET PO SCH ×3 (08:55→16:10)
[2017-06-12] MEDS: LISINOPRIL 20 MG TABLET PO SCH (08:55)
[2017-06-12] MEDS: LORazepam 2 MG TABLET PO PRN (08:55)
[2017-06-12] MEDS: NYSTATIN 15 GM POWDER BOTTLE TP SCH ×2 (09:00→16:10)
[2017-06-12 16:08] VITALS: BP 134/87
[2017-06-12] MEDS: DIVALPROEX SODIUM 500 MG ER TABLET PO SCH (20:04)
[2017-06-12] MEDS: ZOLPIDEM TARTRATE 10 MG TABLET PO PRN (20:04)
[2017-06-12] MEDS: DiphenhydrAMINE HCL 25 MG CAPSULE PO SCH (20:04)
[2017-06-13] MEDS: ZIPRASIDONE HCL 80 MG CAPSULE PO SCH ×2 (06:31→16:47)
[2017-06-13] MEDS: OMEPRAZOLE 20 MG CAPSULE PO SCH (06:31)
[2017-06-13 07:16] VITALS: BP 121/72
[2017-06-13] MEDS: HydrALAZINE HCL 25 MG TABLET PO SCH ×3 (08:37→16:47)
[2017-06-13] MEDS: CHOLECALCIFEROL (VIT D3) 1,000 UNITS TABLET PO SCH (08:37)
[2017-06-13] MEDS: LISINOPRIL 20 MG TABLET PO SCH (08:37)
[2017-06-13] MEDS: HydrOXYzine PAMOATE 25 MG CAPSULE PO SCH ×2 (08:37→16:47)
[2017-06-13] MEDS: NYSTATIN 15 GM POWDER BOTTLE TP SCH ×2 (08:37→17:23)
[2017-06-13 08:42] VITALS: BP 128/63
[2017-06-13 16:34] VITALS: BP 115/54
[2017-06-13] MEDS: DiphenhydrAMINE HCL 25 MG CAPSULE PO SCH (20:12)
[2017-06-13] MEDS: DIVALPROEX SODIUM 500 MG ER TABLET PO SCH (20:12)
[2017-06-14 05:19] VITALS: BP 117/63
[2017-06-14] MEDS: OMEPRAZOLE 20 MG CAPSULE PO SCH (06:16)
[2017-06-14] MEDS: ZIPRASIDONE HCL 80 MG CAPSULE PO SCH ×2 (06:16→16:17)
[2017-06-14] MEDS ORDERED: TUBERCULIN, PURIFIED PROTEIN DERIVATIVE 5 TU/0.1 ML SYG ID ONE (08:30)
[2017-06-14] MEDS: CHOLECALCIFEROL (VIT D3) 1,000 UNITS TABLET PO SCH (08:44)
[2017-06-14] MEDS: LISINOPRIL 20 MG TABLET PO SCH (08:44)
[2017-06-14] MEDS: NYSTATIN 15 GM POWDER BOTTLE TP SCH ×2 (08:44→16:17)
[2017-06-14] MEDS: HydrOXYzine PAMOATE 25 MG CAPSULE PO SCH ×2 (08:44→16:17)
[2017-06-14] MEDS: HydrALAZINE HCL 25 MG TABLET PO SCH ×3 (08:44→16:17)
[2017-06-14 09:04] VITALS: BP 134/71
[2017-06-14 16:00] VITALS: BP 142/83
[2017-06-14] MEDS: DIVALPROEX SODIUM 500 MG ER TABLET PO SCH (20:54)
[2017-06-14] MEDS: DiphenhydrAMINE HCL 25 MG CAPSULE PO SCH (20:54)
[2017-06-15 04:28] VITALS: BP 137/63
[2017-06-15] MEDS: OMEPRAZOLE 20 MG CAPSULE PO SCH (06:57)
[2017-06-15] MEDS: ZIPRASIDONE HCL 80 MG CAPSULE PO SCH ×2 (06:57→16:08)
[2017-06-15 08:55] VITALS: BP 129/68
[2017-06-15] MEDS: HydrOXYzine PAMOATE 25 MG CAPSULE PO SCH ×3 (09:00→16:08)
[2017-06-15] MEDS: LISINOPRIL 20 MG TABLET PO SCH ×2 (09:00→09:08)
[2017-06-15] MEDS: CHOLECALCIFEROL (VIT D3) 1,000 UNITS TABLET PO SCH ×2 (09:00→09:08)
[2017-06-15] MEDS: NYSTATIN 15 GM POWDER BOTTLE TP SCH ×3 (09:00→16:08)
[2017-06-15] MEDS: HydrALAZINE HCL 25 MG TABLET PO SCH ×4 (09:00→16:08)
[2017-06-15 16:17] VITALS: BP 146/100
[2017-06-15 18:30] VITALS: BP 142/89
[2017-06-15] MEDS: DIVALPROEX SODIUM 500 MG ER TABLET PO SCH (21:00)
[2017-06-15] MEDS: DiphenhydrAMINE HCL 25 MG CAPSULE PO SCH (21:00)
[2017-06-16 02:10] VITALS: BP 140/78
[2017-06-16] MEDS: OMEPRAZOLE 20 MG CAPSULE PO SCH (06:30)
[2017-06-16] MEDS: ZIPRASIDONE HCL 80 MG CAPSULE PO SCH ×2 (06:43→16:21)
[2017-06-16] MEDS: HydrALAZINE HCL 25 MG TABLET PO SCH ×5 (08:35→16:21)
[2017-06-16] MEDS: CHOLECALCIFEROL (VIT D3) 1,000 UNITS TABLET PO SCH ×2 (08:35→09:00)
[2017-06-16] MEDS: HydrOXYzine PAMOATE 25 MG CAPSULE PO SCH ×3 (08:35→16:21)
[2017-06-16] MEDS: LISINOPRIL 20 MG TABLET PO SCH ×2 (08:35→09:00)
[2017-06-16] MEDS: NYSTATIN 15 GM POWDER BOTTLE TP SCH ×3 (08:35→16:21)
[2017-06-16 09:41] VITALS: BP 153/89
[2017-06-16] MEDS ORDERED: DiphenhydrAMINE HCL 50 MG/ML VIAL IM ONE (11:00)
[2017-06-16] MEDS ORDERED: LORazepam 2 MG/ML VIAL IM ONE (11:00)
[2017-06-16] MEDS ORDERED: FluPHENAZine HCL 2.5 MG/ML INJ IM ONE (11:00)
[2017-06-16 16:44] VITALS: BP 137/75
[2017-06-16] MEDS: DIVALPROEX SODIUM 500 MG ER TABLET PO SCH (20:12)
[2017-06-16] MEDS: DiphenhydrAMINE HCL 25 MG CAPSULE PO SCH (20:13)
[2017-06-17 05:59] VITALS: BP 127/63
[2017-06-17] MEDS: OMEPRAZOLE 20 MG CAPSULE PO SCH (06:43)
[2017-06-17] MEDS: ZIPRASIDONE HCL 80 MG CAPSULE PO SCH ×2 (06:52→16:08)
[2017-06-17 08:09] LABS: BASOPHILS % (AUTO) 0.6 % (0.0-2.0); EOSINOPHILS % (AUTO) 2.6 % (1.0-6.0); HEMATOCRIT 36.8 % (36-46); HEMOGLOBIN 12.4 g/dL (12.0-16.0); LYMPHOCYTES # (AUTO) 1.2 K/uL (1.0-4.8); LYMPHOCYTES % (AUTO) 31.9 % (22.0-44.0); MEAN CORPUSCULAR HEMOGLOBIN 32.6 pg (26.0-34.0); MEAN CORPUSCULAR HGB CONC 33.7 G/dL (31.0-37.0); MEAN CORPUSCULAR VOLUME 97 fL (80-100); MONOCYTES # (AUTO) 0.6 K/uL (0.1-1.0); MONOCYTES % (AUTO) 15.8 % (2.0-9.0); NEUTROPHILS # (AUTO) 1.8 K/uL (1.8-7.7); NEUTROPHILS % (AUTO) 49.1 % (40.0-70.0); PLATELET COUNT (AUTO) 150 K/uL (150-450); RED BLOOD CELL COUNT(AUTO) 3.81 MIL/uL (4.00-5.20); RED CELL DISTRIBUTION WIDTH 13.2 % (11.5-14.5)
[2017-06-17 08:31] VITALS: BP 132/67
[2017-06-17] MEDS: LISINOPRIL 20 MG TABLET PO SCH (08:32)
[2017-06-17] MEDS: HydrOXYzine PAMOATE 25 MG CAPSULE PO SCH ×2 (08:32→16:08)
[2017-06-17] MEDS: HydrALAZINE HCL 25 MG TABLET PO SCH ×3 (08:32→16:08)
[2017-06-17] MEDS: CHOLECALCIFEROL (VIT D3) 1,000 UNITS TABLET PO SCH (08:32)
[2017-06-17 09:02] LABS: ALANINE AMINOTRANSFERASE 28 U/L (12-78); ALBUMIN 3.1 g/dL (3.4-5.0); ALKALINE PHOSPHATASE 66 U/L (46-116); ANION GAP 8 mmol/L (8-16); ASPARTATE AMINOTRANSFERASE 10 U/L (15-37); BILIRUBIN,TOTAL 0.1 mg/dL (0.1-1.0); CALCIUM, TOTAL 8.8 mg/dL (8.8-10.5); CARBON DIOXIDE 31 mmol/L (22-29); CHLORIDE 104 mmol/L (98-107); CREATININE 0.91 mg/dL (0.60-1.30); GLOMERULAR FILTR. RATE CALC > 60 mL/min (>60); GLUCOSE,RANDOM 91 mg/dL (70-110); PHOSPHORUS 4.2 mg/dL (2.5-4.9); POTASSIUM 4.6 mmol/L (3.5-5.1); SODIUM SERUM 143 mmol/L (136-145); TOTAL PROTEIN, SERUM 6.2 g/dL (6.4-8.2); UREA NITROGEN, BLOOD 35 mg/dL (7-18)
[2017-06-17] MEDS: NYSTATIN 15 GM POWDER BOTTLE TP SCH ×2 (09:09→16:08)
[2017-06-17 16:03] VITALS: BP 110/60
[2017-06-17] MEDS: DiphenhydrAMINE HCL 25 MG CAPSULE PO SCH (20:06)
[2017-06-17] MEDS: DIVALPROEX SODIUM 500 MG ER TABLET PO SCH (20:06)
[2017-06-18] MEDS: ZIPRASIDONE HCL 80 MG CAPSULE PO SCH ×2 (06:40→16:32)
[2017-06-18] MEDS: OMEPRAZOLE 20 MG CAPSULE PO SCH (06:41)
[2017-06-18 07:01] VITALS: BP 111/69
[2017-06-18 08:13] VITALS: BP 125/61
[2017-06-18 08:42] LABS: AMPHET/METH SCREEN,URINE NEGATIVE (NEGATIVE); BARBITURATE SCREEN, URINE NEGATIVE (NEGATIVE); BENZODIAZEPINES SCREEN,URINE NEGATIVE (NEGATIVE); CANNABINOID SCREEN,URINE NEGATIVE (NEGATIVE); COCAINE SCREEN,URINE NEGATIVE (NEGATIVE); METHADONE SCREEN, URINE NEGATIVE (NEGATIVE); OPIATE SCREEN,URINE NEGATIVE (NEGATIVE)
[2017-06-18 08:59] LABS: APPEARANCE,URINE CLEAR (CLEAR); BILIRUBIN,URINE NEGATIVE (NEGATIVE); GLUCOSE, URINE (UA) NEGATIVE (NEGATIVE); KETONES,URINE NEGATIVE (NEGATIVE); LEUKOCYTE ESTERASE ,URINE SMALL (NEGATIVE); NITRATE,URINE NEGATIVE (NEGATIVE); OCCULT BLOOD,URINE NEGATIVE (NEGATIVE); PROTEIN,URINE NEGATIVE (NEGATIVE); UROBILINOGEN,URINE 0.2 mg/dL (<=1.0)
[2017-06-18 09:18] LABS: PHENCYCLIDINE SCREEN,URINE NEGATIVE (NEGATIVE)
[2017-06-18 09:45] LABS: BACTERIA,URINE Few /HPF (None Seen); RBC,URINE 0-2 /HPF (0-2); SQUAMOUS EPITHELIAL CELL,UR Few /LPF (None Seen)
[2017-06-18] MEDS: HydrALAZINE HCL 25 MG TABLET PO SCH ×3 (10:42→16:32)
[2017-06-18] MEDS: NYSTATIN 15 GM POWDER BOTTLE TP SCH ×2 (10:42→16:32)
[2017-06-18] MEDS: CHOLECALCIFEROL (VIT D3) 1,000 UNITS TABLET PO SCH (10:42)
[2017-06-18] MEDS: LISINOPRIL 20 MG TABLET PO SCH (10:42)
[2017-06-18] MEDS: HydrOXYzine PAMOATE 25 MG CAPSULE PO SCH ×2 (10:42→16:32)
[2017-06-18 16:15] VITALS: BP 120/64
[2017-06-18] MEDS: ChlorproMAZINE HCL 100 MG TABLET PO PRN (17:13)
[2017-06-18] MEDS: DiphenhydrAMINE HCL 25 MG CAPSULE PO SCH (21:16)
[2017-06-18] MEDS: NITROFURANTOIN/NITROFURAN MAC 100 MG CAPSULE [MACROBID] PO SCH (21:16)
[2017-06-18] MEDS: DIVALPROEX SODIUM 500 MG ER TABLET PO SCH (21:16)
[2017-06-19] MEDS: ZIPRASIDONE HCL 80 MG CAPSULE PO SCH ×2 (06:28→16:35)
[2017-06-19] MEDS: OMEPRAZOLE 20 MG CAPSULE PO SCH (06:28)
[2017-06-19 08:25] VITALS: BP 109/57
[2017-06-19] MEDS: HydrALAZINE HCL 25 MG TABLET PO SCH ×3 (08:33→16:35)
[2017-06-19] MEDS: CHOLECALCIFEROL (VIT D3) 1,000 UNITS TABLET PO SCH (08:33)
[2017-06-19] MEDS: NYSTATIN 15 GM POWDER BOTTLE TP SCH ×2 (08:33→16:34)
[2017-06-19] MEDS: NITROFURANTOIN/NITROFURAN MAC 100 MG CAPSULE [MACROBID] PO SCH ×2 (08:33→16:35)
[2017-06-19] MEDS: LISINOPRIL 20 MG TABLET PO SCH (08:33)
[2017-06-19] MEDS: HydrOXYzine PAMOATE 25 MG CAPSULE PO SCH ×2 (08:33→16:35)
[2017-06-19 16:03] VITALS: BP 133/77
[2017-06-19] MEDS: DIVALPROEX SODIUM 500 MG ER TABLET PO SCH (20:51)
[2017-06-19] MEDS: DiphenhydrAMINE HCL 25 MG CAPSULE PO SCH (20:52)
[2017-06-20] MEDS: OMEPRAZOLE 20 MG CAPSULE PO SCH (06:05)
[2017-06-20 06:31] VITALS: BP 129/66
[2017-06-20] MEDS: ZIPRASIDONE HCL 80 MG CAPSULE PO SCH ×2 (06:37→16:51)
[2017-06-20 08:24] VITALS: BP 126/74
[2017-06-20] MEDS: HydrALAZINE HCL 25 MG TABLET PO SCH ×3 (08:57→16:51)
[2017-06-20] MEDS: LISINOPRIL 20 MG TABLET PO SCH (08:57)
[2017-06-20] MEDS: CHOLECALCIFEROL (VIT D3) 1,000 UNITS TABLET PO SCH (08:57)
[2017-06-20] MEDS: HydrOXYzine PAMOATE 25 MG CAPSULE PO SCH ×2 (08:57→16:51)
[2017-06-20] MEDS: NITROFURANTOIN/NITROFURAN MAC 100 MG CAPSULE [MACROBID] PO SCH ×2 (08:57→16:51)
[2017-06-20] MEDS: NYSTATIN 15 GM POWDER BOTTLE TP SCH ×2 (08:57→16:51)
[2017-06-20 16:26] VITALS: BP 136/78
[2017-06-20] MEDS: DiphenhydrAMINE HCL 25 MG CAPSULE PO SCH (20:28)
[2017-06-20] MEDS: DIVALPROEX SODIUM 500 MG ER TABLET PO SCH (20:29)
[2017-06-21] MEDS: OMEPRAZOLE 20 MG CAPSULE PO SCH (06:23)
[2017-06-21] MEDS: ZIPRASIDONE HCL 80 MG CAPSULE PO SCH ×2 (06:35→16:47)
[2017-06-21 07:03] VITALS: BP 135/72
[2017-06-21 08:35] VITALS: BP 107/68
[2017-06-21] MEDS: LISINOPRIL 20 MG TABLET PO SCH (09:23)
[2017-06-21] MEDS: NITROFURANTOIN/NITROFURAN MAC 100 MG CAPSULE [MACROBID] PO SCH ×2 (09:23→16:31)
[2017-06-21] MEDS: CHOLECALCIFEROL (VIT D3) 1,000 UNITS TABLET PO SCH (09:23)
[2017-06-21] MEDS: HydrALAZINE HCL 25 MG TABLET PO SCH ×3 (09:23→16:31)
[2017-06-21] MEDS: HydrOXYzine PAMOATE 25 MG CAPSULE PO SCH ×2 (09:23→16:31)
[2017-06-21] MEDS: NYSTATIN 15 GM POWDER BOTTLE TP SCH ×2 (09:23→16:37)
[2017-06-21 16:34] VITALS: BP 133/84
[2017-06-21] MEDS: DiphenhydrAMINE HCL 25 MG CAPSULE PO SCH (20:03)
[2017-06-21] MEDS: DIVALPROEX SODIUM 500 MG ER TABLET PO SCH (20:03)
[2017-06-21] MEDS: ZOLPIDEM TARTRATE 10 MG TABLET PO PRN (21:01)
[2017-06-22] MEDS: OMEPRAZOLE 20 MG CAPSULE PO SCH (06:39)
[2017-06-22] MEDS: ZIPRASIDONE HCL 80 MG CAPSULE PO SCH ×2 (06:39→16:41)
[2017-06-22 07:58] LABS: GLUCOMETER DEV NAME(LOC) BV3S 2; GLUCOSE,POINT OF CARE 86 MG/DL (70-110)
[2017-06-22] MEDS: CHOLECALCIFEROL (VIT D3) 1,000 UNITS TABLET PO SCH (08:38)
[2017-06-22] MEDS: NITROFURANTOIN/NITROFURAN MAC 100 MG CAPSULE [MACROBID] PO SCH ×2 (08:38→16:41)
[2017-06-22] MEDS: LISINOPRIL 20 MG TABLET PO SCH (08:38)
[2017-06-22] MEDS: HydrOXYzine PAMOATE 25 MG CAPSULE PO SCH ×2 (08:38→17:28)
[2017-06-22] MEDS: HydrALAZINE HCL 25 MG TABLET PO SCH ×3 (08:38→17:28)
[2017-06-22 08:40] VITALS: BP 120/85
[2017-06-22] MEDS: NYSTATIN 15 GM POWDER BOTTLE TP SCH ×2 (08:41→17:28)
[2017-06-22 16:14] VITALS: BP 130/85
[2017-06-22] MEDS: ChlorproMAZINE HCL 100 MG TABLET PO PRN (16:32)
[2017-06-22] MEDS: DIVALPROEX SODIUM 500 MG ER TABLET PO SCH (20:36)
[2017-06-22] MEDS: DiphenhydrAMINE HCL 25 MG CAPSULE PO SCH (20:36)
[2017-06-23] MEDS: ZIPRASIDONE HCL 80 MG CAPSULE PO SCH ×2 (06:30→16:56)
[2017-06-23] MEDS: OMEPRAZOLE 20 MG CAPSULE PO SCH (06:30)
[2017-06-23 06:43] LABS: GLUCOMETER DEV NAME(LOC) BV3S 2; GLUCOSE,POINT OF CARE 83 MG/DL (70-110)
[2017-06-23 08:14] VITALS: BP 150/96
[2017-06-23] MEDS: HydrALAZINE HCL 25 MG TABLET PO SCH ×3 (09:00→16:56)
[2017-06-23] MEDS: LISINOPRIL 20 MG TABLET PO SCH (09:00)
[2017-06-23] MEDS: HydrOXYzine PAMOATE 25 MG CAPSULE PO SCH ×2 (09:00→16:56)
[2017-06-23] MEDS: NITROFURANTOIN/NITROFURAN MAC 100 MG CAPSULE [MACROBID] PO SCH ×2 (09:00→16:56)
[2017-06-23] MEDS: CHOLECALCIFEROL (VIT D3) 1,000 UNITS TABLET PO SCH (09:00)
[2017-06-23] MEDS: NYSTATIN 15 GM POWDER BOTTLE TP SCH ×2 (09:05→17:04)
[2017-06-23] MEDS: ChlorproMAZINE HCL 100 MG TABLET PO PRN ×2 (09:05→16:17)
[2017-06-23 16:25] VITALS: BP 105/65
[2017-06-23] MEDS: DiphenhydrAMINE HCL 25 MG CAPSULE PO SCH (20:31)
[2017-06-23] MEDS: DIVALPROEX SODIUM 500 MG ER TABLET PO SCH (20:31)
[2017-06-24 04:56] VITALS: BP 117/69
[2017-06-24 05:55] LABS: GLUCOMETER DEV NAME(LOC) BV3S 2; GLUCOSE,POINT OF CARE 75 MG/DL (70-110)
[2017-06-24] MEDS: OMEPRAZOLE 20 MG CAPSULE PO SCH (06:29)
[2017-06-24] MEDS: ZIPRASIDONE HCL 80 MG CAPSULE PO SCH (06:29)
[2017-06-24] MEDS: HydrOXYzine PAMOATE 25 MG CAPSULE PO SCH ×3 (08:41→20:17)
[2017-06-24] MEDS: HydrALAZINE HCL 25 MG TABLET PO SCH ×3 (08:41→16:27)
[2017-06-24] MEDS: LISINOPRIL 20 MG TABLET PO SCH (08:41)
[2017-06-24] MEDS: NYSTATIN 15 GM POWDER BOTTLE TP SCH ×2 (08:41→16:27)
[2017-06-24] MEDS: CHOLECALCIFEROL (VIT D3) 1,000 UNITS TABLET PO SCH (08:41)
[2017-06-24] MEDS: NITROFURANTOIN/NITROFURAN MAC 100 MG CAPSULE [MACROBID] PO SCH ×2 (08:41→16:27)
[2017-06-24 09:00] VITALS: BP 136/88
[2017-06-24] MEDS: ChlorproMAZINE HCL 100 MG TABLET PO PRN (10:06)
[2017-06-24 16:11] VITALS: BP 116/69
[2017-06-24] MEDS: ZIPRASIDONE HCL 60 MG CAPSULE PO SCH (16:40)
[2017-06-24] MEDS: DIVALPROEX SODIUM 500 MG ER TABLET PO SCH (20:17)
[2017-06-24] MEDS: DiphenhydrAMINE HCL 25 MG CAPSULE PO SCH (20:18)
[2017-06-25] MEDS: OMEPRAZOLE 20 MG CAPSULE PO SCH (06:31)
[2017-06-25] MEDS: ZIPRASIDONE HCL 80 MG CAPSULE PO SCH (06:31)
[2017-06-25 06:57] VITALS: BP 122/74
[2017-06-25] MEDS: LISINOPRIL 20 MG TABLET PO SCH (09:00)
[2017-06-25] MEDS: HydrALAZINE HCL 25 MG TABLET PO SCH ×3 (09:00→16:47)
[2017-06-25 09:24] VITALS: BP 110/58
[2017-06-25] MEDS: NITROFURANTOIN/NITROFURAN MAC 100 MG CAPSULE [MACROBID] PO SCH (09:27)
[2017-06-25] MEDS: CHOLECALCIFEROL (VIT D3) 1,000 UNITS TABLET PO SCH (09:27)
[2017-06-25] MEDS: NYSTATIN 15 GM POWDER BOTTLE TP SCH ×2 (09:27→16:47)
[2017-06-25] MEDS: HydrOXYzine PAMOATE 25 MG CAPSULE PO SCH ×3 (09:28→20:03)
[2017-06-25 12:30] VITALS: BP 114/80
[2017-06-25] MEDS: ChlorproMAZINE HCL 100 MG TABLET PO PRN (12:45)
[2017-06-25 16:05] VITALS: BP 113/78
[2017-06-25] MEDS: ZIPRASIDONE HCL 60 MG CAPSULE PO SCH (16:47)
[2017-06-25] MEDS: LORazepam 2 MG TABLET PO PRN (17:21)
[2017-06-25] MEDS: DiphenhydrAMINE HCL 25 MG CAPSULE PO SCH (20:03)
[2017-06-25] MEDS: DIVALPROEX SODIUM 500 MG ER TABLET PO SCH (20:03)
[2017-06-26 04:34] VITALS: BP 110/78
[2017-06-26] MEDS: OMEPRAZOLE 20 MG CAPSULE PO SCH (06:48)
[2017-06-26] MEDS: ZIPRASIDONE HCL 80 MG CAPSULE PO SCH (06:48)
[2017-06-26 08:07] VITALS: BP 129/78
[2017-06-26] MEDS: LISINOPRIL 20 MG TABLET PO SCH (08:58)
[2017-06-26] MEDS: NYSTATIN 15 GM POWDER BOTTLE TP SCH ×2 (08:58→16:09)
[2017-06-26] MEDS: HydrALAZINE HCL 25 MG TABLET PO SCH ×3 (08:58→16:09)
[2017-06-26] MEDS: HydrOXYzine PAMOATE 25 MG CAPSULE PO SCH ×3 (08:58→20:17)
[2017-06-26] MEDS: CHOLECALCIFEROL (VIT D3) 1,000 UNITS TABLET PO SCH (08:58)
[2017-06-26] MEDS: ZIPRASIDONE HCL 60 MG CAPSULE PO SCH (16:09)
[2017-06-26] MEDS: LORazepam 2 MG TABLET PO PRN (16:09)
[2017-06-26 16:26] VITALS: BP 115/72
[2017-06-26] MEDS: DIVALPROEX SODIUM 500 MG ER TABLET PO SCH (20:16)
[2017-06-26] MEDS: ZOLPIDEM TARTRATE 10 MG TABLET PO PRN (20:17)
[2017-06-26] MEDS: DiphenhydrAMINE HCL 25 MG CAPSULE PO SCH (20:17)
[2017-06-27 05:05] VITALS: BP 116/74
[2017-06-27] MEDS: ZIPRASIDONE HCL 80 MG CAPSULE PO SCH (06:25)
[2017-06-27] MEDS: OMEPRAZOLE 20 MG CAPSULE PO SCH (06:25)
[2017-06-27 08:31] VITALS: BP 131/92
[2017-06-27] MEDS: LISINOPRIL 20 MG TABLET PO SCH (09:02)
[2017-06-27] MEDS: NYSTATIN 15 GM POWDER BOTTLE TP SCH ×2 (09:02→17:05)
[2017-06-27] MEDS: HydrOXYzine PAMOATE 25 MG CAPSULE PO SCH ×3 (09:02→20:58)
[2017-06-27] MEDS: CHOLECALCIFEROL (VIT D3) 1,000 UNITS TABLET PO SCH (09:02)
[2017-06-27] MEDS: HydrALAZINE HCL 25 MG TABLET PO SCH ×3 (09:02→17:03)
[2017-06-27] MEDS: ChlorproMAZINE HCL 100 MG TABLET PO PRN ×2 (09:02→17:53)
[2017-06-27 16:15] VITALS: BP 124/68
[2017-06-27] MEDS: ZIPRASIDONE HCL 60 MG CAPSULE PO SCH (17:04)
[2017-06-27] MEDS: DIVALPROEX SODIUM 500 MG ER TABLET PO SCH (20:54)
[2017-06-27] MEDS: DiphenhydrAMINE HCL 25 MG CAPSULE PO SCH (20:54)
[2017-06-28 06:34] VITALS: BP 117/63
[2017-06-28] MEDS: ZIPRASIDONE HCL 80 MG CAPSULE PO SCH (06:34)
[2017-06-28] MEDS: OMEPRAZOLE 20 MG CAPSULE PO SCH (06:34)
[2017-06-28 08:09] VITALS: BP 111/63
[2017-06-28 08:30] VITALS: BP 111/63
[2017-06-28] MEDS: HydrOXYzine PAMOATE 25 MG CAPSULE PO SCH ×3 (09:01→20:54)
[2017-06-28] MEDS: NYSTATIN 15 GM POWDER BOTTLE TP SCH ×2 (09:01→17:30)
[2017-06-28] MEDS: ChlorproMAZINE HCL 100 MG TABLET PO PRN ×2 (09:01→16:51)
[2017-06-28] MEDS: LISINOPRIL 20 MG TABLET PO SCH (09:01)
[2017-06-28] MEDS: CHOLECALCIFEROL (VIT D3) 1,000 UNITS TABLET PO SCH (09:01)
[2017-06-28] MEDS: HydrALAZINE HCL 25 MG TABLET PO SCH ×3 (09:02→17:30)
[2017-06-28] MEDS: LORazepam 2 MG TABLET PO PRN (12:52)
[2017-06-28 16:10] VITALS: BP 140/64
[2017-06-28] MEDS: ZIPRASIDONE HCL 60 MG CAPSULE PO SCH (17:30)
[2017-06-28] MEDS: DiphenhydrAMINE HCL 25 MG CAPSULE PO SCH (20:54)
[2017-06-28] MEDS: DIVALPROEX SODIUM 500 MG ER TABLET PO SCH (20:54)
[2017-06-29] MEDS: ZIPRASIDONE HCL 80 MG CAPSULE PO SCH (06:29)
[2017-06-29] MEDS: OMEPRAZOLE 20 MG CAPSULE PO SCH (06:29)
[2017-06-29 08:49] VITALS: BP 122/64
[2017-06-29] MEDS: CHOLECALCIFEROL (VIT D3) 1,000 UNITS TABLET PO SCH (08:54)
[2017-06-29] MEDS: HydrALAZINE HCL 25 MG TABLET PO SCH ×3 (08:54→16:29)
[2017-06-29] MEDS: LISINOPRIL 20 MG TABLET PO SCH (08:54)
[2017-06-29] MEDS: HydrOXYzine PAMOATE 25 MG CAPSULE PO SCH ×3 (08:54→20:22)
[2017-06-29] MEDS: ChlorproMAZINE HCL 100 MG TABLET PO PRN (08:54)
[2017-06-29] MEDS: NYSTATIN 15 GM POWDER BOTTLE TP SCH ×2 (08:54→16:29)
[2017-06-29] MEDS: LORazepam 2 MG TABLET PO PRN (12:52)
[2017-06-29 16:15] VITALS: BP 118/70
[2017-06-29] MEDS: ZIPRASIDONE HCL 60 MG CAPSULE PO SCH (16:29)
[2017-06-29] MEDS: DIVALPROEX SODIUM 500 MG ER TABLET PO SCH (20:22)
[2017-06-29] MEDS: DiphenhydrAMINE HCL 25 MG CAPSULE PO SCH (20:22)
[2017-06-30] MEDS: ZIPRASIDONE HCL 80 MG CAPSULE PO SCH (06:39)
[2017-06-30] MEDS: OMEPRAZOLE 20 MG CAPSULE PO SCH (06:39)
[2017-06-30 06:49] VITALS: BP 123/66
[2017-06-30 08:40] VITALS: BP 116/62
[2017-06-30] MEDS: HydrOXYzine PAMOATE 25 MG CAPSULE PO SCH ×3 (09:03→21:00)
[2017-06-30] MEDS: CHOLECALCIFEROL (VIT D3) 1,000 UNITS TABLET PO SCH (09:03)
[2017-06-30] MEDS: NYSTATIN 15 GM POWDER BOTTLE TP SCH ×2 (09:03→16:21)
[2017-06-30] MEDS: HydrALAZINE HCL 25 MG TABLET PO SCH ×3 (09:03→16:20)
[2017-06-30] MEDS: ChlorproMAZINE HCL 100 MG TABLET PO PRN ×2 (09:03→20:33)
[2017-06-30] MEDS: LISINOPRIL 20 MG TABLET PO SCH (09:03)
[2017-06-30] MEDS: ZIPRASIDONE HCL 60 MG CAPSULE PO SCH (16:20)
[2017-06-30 17:56] VITALS: BP 105/68
[2017-06-30] MEDS: DIVALPROEX SODIUM 500 MG ER TABLET PO SCH (21:00)
[2017-06-30] MEDS: DiphenhydrAMINE HCL 25 MG CAPSULE PO SCH (21:00)
[2017-07-01 06:12] VITALS: BP 117/70
[2017-07-01] MEDS: ZIPRASIDONE HCL 80 MG CAPSULE PO SCH (06:37)
[2017-07-01] MEDS: OMEPRAZOLE 20 MG CAPSULE PO SCH (06:37)
[2017-07-01 08:22] VITALS: BP 123/62
[2017-07-01] MEDS: HydrOXYzine PAMOATE 25 MG CAPSULE PO SCH ×3 (09:51→20:45)
[2017-07-01] MEDS: LISINOPRIL 20 MG TABLET PO SCH (09:51)
[2017-07-01] MEDS: HydrALAZINE HCL 25 MG TABLET PO SCH ×3 (09:51→17:34)
[2017-07-01] MEDS: NYSTATIN 15 GM POWDER BOTTLE TP SCH ×2 (09:51→17:34)
[2017-07-01] MEDS: CHOLECALCIFEROL (VIT D3) 1,000 UNITS TABLET PO SCH (09:51)
[2017-07-01 16:32] VITALS: BP 140/62
[2017-07-01] MEDS: ChlorproMAZINE HCL 100 MG TABLET PO PRN (17:34)
[2017-07-01] MEDS: ZIPRASIDONE HCL 60 MG CAPSULE PO SCH (17:34)
[2017-07-01] MEDS: DiphenhydrAMINE HCL 25 MG CAPSULE PO SCH (20:44)
[2017-07-01] MEDS: DIVALPROEX SODIUM 500 MG ER TABLET PO SCH (20:45)
[2017-07-02 06:16] VITALS: BP 100/60
[2017-07-02] MEDS: OMEPRAZOLE 20 MG CAPSULE PO SCH (06:23)
[2017-07-02] MEDS: ZIPRASIDONE HCL 80 MG CAPSULE PO SCH (06:33)
[2017-07-02] MEDS: HydrOXYzine PAMOATE 25 MG CAPSULE PO SCH ×3 (08:18→21:01)
[2017-07-02] MEDS: NYSTATIN 15 GM POWDER BOTTLE TP SCH ×2 (08:18→16:55)
[2017-07-02] MEDS: ChlorproMAZINE HCL 100 MG TABLET PO PRN ×2 (08:18→16:54)
[2017-07-02] MEDS: CHOLECALCIFEROL (VIT D3) 1,000 UNITS TABLET PO SCH (08:18)
[2017-07-02] MEDS: HydrALAZINE HCL 25 MG TABLET PO SCH ×3 (08:18→16:55)
[2017-07-02] MEDS: LISINOPRIL 20 MG TABLET PO SCH (08:18)
[2017-07-02 08:37] VITALS: BP 124/78
[2017-07-02 16:12] VITALS: BP_SYST 125; BP_SYST 146; BP_DIAS 66; BP_DIAS 78
[2017-07-02] MEDS: ZIPRASIDONE HCL 60 MG CAPSULE PO SCH (16:55)
[2017-07-02] MEDS: DiphenhydrAMINE HCL 25 MG CAPSULE PO SCH (21:00)
[2017-07-02] MEDS: DIVALPROEX SODIUM 500 MG ER TABLET PO SCH (21:00)
[2017-07-03] MEDS: ZIPRASIDONE HCL 80 MG CAPSULE PO SCH (06:21)
[2017-07-03] MEDS: OMEPRAZOLE 20 MG CAPSULE PO SCH (06:21)
[2017-07-03 08:17] VITALS: BP 100/65
[2017-07-03 09:00] VITALS: BP 120/70
[2017-07-03] MEDS: LISINOPRIL 20 MG TABLET PO SCH (09:28)
[2017-07-03] MEDS: CHOLECALCIFEROL (VIT D3) 1,000 UNITS TABLET PO SCH (09:29)
[2017-07-03] MEDS: HydrALAZINE HCL 25 MG TABLET PO SCH ×3 (09:29→16:18)
[2017-07-03] MEDS: NYSTATIN 15 GM POWDER BOTTLE TP SCH ×2 (09:29→16:18)
[2017-07-03] MEDS: HydrOXYzine PAMOATE 25 MG CAPSULE PO SCH ×3 (09:30→20:12)
[2017-07-03] MEDS: ChlorproMAZINE HCL 100 MG TABLET PO PRN (12:14)
[2017-07-03 16:06] VITALS: BP 109/73
[2017-07-03] MEDS: ZIPRASIDONE HCL 60 MG CAPSULE PO SCH (16:18)
[2017-07-03] MEDS: DiphenhydrAMINE HCL 25 MG CAPSULE PO SCH (20:12)
[2017-07-03] MEDS: DIVALPROEX SODIUM 500 MG ER TABLET PO SCH (20:17)
[2017-07-04] MEDS: OMEPRAZOLE 20 MG CAPSULE PO SCH (06:23)
[2017-07-04] MEDS: ZIPRASIDONE HCL 80 MG CAPSULE PO SCH (06:23)
[2017-07-04 06:29] VITALS: BP 113/74
[2017-07-04 08:56] VITALS: BP 125/70
[2017-07-04] MEDS: HydrOXYzine PAMOATE 25 MG CAPSULE PO SCH ×3 (09:11→20:38)
[2017-07-04] MEDS: HydrALAZINE HCL 25 MG TABLET PO SCH ×3 (09:12→17:00)
[2017-07-04] MEDS: CHOLECALCIFEROL (VIT D3) 1,000 UNITS TABLET PO SCH (09:12)
[2017-07-04] MEDS: NYSTATIN 15 GM POWDER BOTTLE TP SCH ×2 (09:12→17:02)
[2017-07-04] MEDS: LISINOPRIL 20 MG TABLET PO SCH (09:12)
[2017-07-04 16:47] VITALS: BP 127/77
[2017-07-04] MEDS: ZIPRASIDONE HCL 60 MG CAPSULE PO SCH (17:02)
[2017-07-04] MEDS: DiphenhydrAMINE HCL 25 MG CAPSULE PO SCH (20:34)
[2017-07-04] MEDS: DIVALPROEX SODIUM 500 MG ER TABLET PO SCH (20:34)
[2017-07-05] MEDS: OMEPRAZOLE 20 MG CAPSULE PO SCH (06:14)
[2017-07-05] MEDS: ZIPRASIDONE HCL 80 MG CAPSULE PO SCH (06:21)
[2017-07-05 08:53] VITALS: BP 126/83
[2017-07-05] MEDS: LISINOPRIL 20 MG TABLET PO SCH (08:59)
[2017-07-05] MEDS: NYSTATIN 15 GM POWDER BOTTLE TP SCH ×2 (08:59→16:12)
[2017-07-05] MEDS: HydrALAZINE HCL 25 MG TABLET PO SCH ×3 (08:59→16:12)
[2017-07-05] MEDS: HydrOXYzine PAMOATE 25 MG CAPSULE PO SCH ×3 (08:59→20:14)
[2017-07-05] MEDS: CHOLECALCIFEROL (VIT D3) 1,000 UNITS TABLET PO SCH (08:59)
[2017-07-05 16:09] VITALS: BP 125/83
[2017-07-05] MEDS: ZIPRASIDONE HCL 60 MG CAPSULE PO SCH (16:12)
[2017-07-05] MEDS: LORazepam 2 MG TABLET PO PRN (16:12)
[2017-07-05] MEDS: ChlorproMAZINE HCL 100 MG TABLET PO PRN (16:13)
[2017-07-05] MEDS: DiphenhydrAMINE HCL 25 MG CAPSULE PO SCH (20:14)
[2017-07-05] MEDS: DIVALPROEX SODIUM 500 MG ER TABLET PO SCH (20:14)
[2017-07-05] MEDS: ZOLPIDEM TARTRATE 10 MG TABLET PO PRN (20:14)
[2017-07-06] MEDS: OMEPRAZOLE 20 MG CAPSULE PO SCH (06:35)
[2017-07-06] MEDS: ZIPRASIDONE HCL 80 MG CAPSULE PO SCH (06:35)
[2017-07-06 08:28] VITALS: BP 126/81
[2017-07-06] MEDS: ChlorproMAZINE HCL 100 MG TABLET PO PRN (09:06)
[2017-07-06] MEDS: HydrOXYzine PAMOATE 25 MG CAPSULE PO SCH ×3 (09:06→20:13)
[2017-07-06] MEDS: HydrALAZINE HCL 25 MG TABLET PO SCH ×3 (09:06→16:39)
[2017-07-06] MEDS: LISINOPRIL 20 MG TABLET PO SCH (09:06)
[2017-07-06] MEDS: NYSTATIN 15 GM POWDER BOTTLE TP SCH ×2 (09:07→16:40)
[2017-07-06] MEDS: CHOLECALCIFEROL (VIT D3) 1,000 UNITS TABLET PO SCH (09:10)
[2017-07-06 16:08] VITALS: BP 125/78
[2017-07-06] MEDS: ZIPRASIDONE HCL 60 MG CAPSULE PO SCH (16:39)
[2017-07-06] MEDS: LORazepam 2 MG TABLET PO PRN (16:40)
[2017-07-06] MEDS: DiphenhydrAMINE HCL 25 MG CAPSULE PO SCH (20:12)
[2017-07-06] MEDS: DIVALPROEX SODIUM 500 MG ER TABLET PO SCH (20:13)
[2017-07-06] MEDS: ZOLPIDEM TARTRATE 10 MG TABLET PO PRN (20:13)
[2017-07-07] MEDS: ZIPRASIDONE HCL 80 MG CAPSULE PO SCH (06:30)
[2017-07-07] MEDS: OMEPRAZOLE 20 MG CAPSULE PO SCH (06:30)
[2017-07-07 08:45] VITALS: BP 127/75
[2017-07-07] MEDS: HydrALAZINE HCL 25 MG TABLET PO SCH ×3 (09:10→16:14)
[2017-07-07] MEDS: CHOLECALCIFEROL (VIT D3) 1,000 UNITS TABLET PO SCH (09:10)
[2017-07-07] MEDS: NYSTATIN 15 GM POWDER BOTTLE TP SCH ×2 (09:10→16:14)
[2017-07-07] MEDS: HydrOXYzine PAMOATE 25 MG CAPSULE PO SCH ×3 (09:10→20:17)
[2017-07-07] MEDS: LISINOPRIL 20 MG TABLET PO SCH (09:10)
[2017-07-07] MEDS: ChlorproMAZINE HCL 100 MG TABLET PO PRN (09:16)
[2017-07-07] MEDS: LORazepam 2 MG TABLET PO PRN (13:04)
[2017-07-07] MEDS: ZIPRASIDONE HCL 60 MG CAPSULE PO SCH (16:14)
[2017-07-07 16:21] VITALS: BP 123/60
[2017-07-07] MEDS: DIVALPROEX SODIUM 500 MG ER TABLET PO SCH (20:17)
[2017-07-07] MEDS: DiphenhydrAMINE HCL 25 MG CAPSULE PO SCH (20:17)
[2017-07-07] MEDS: ZOLPIDEM TARTRATE 10 MG TABLET PO PRN (20:17)
[2017-07-08] MEDS: OMEPRAZOLE 20 MG CAPSULE PO SCH (06:34)
[2017-07-08] MEDS: ZIPRASIDONE HCL 80 MG CAPSULE PO SCH (06:34)
[2017-07-08 08:03] VITALS: BP 101/45
[2017-07-08 09:06] VITALS: BP 111/67
[2017-07-08] MEDS: LISINOPRIL 20 MG TABLET PO SCH (09:30)
[2017-07-08] MEDS: HydrALAZINE HCL 25 MG TABLET PO SCH ×3 (09:30→16:16)
[2017-07-08] MEDS: NYSTATIN 15 GM POWDER BOTTLE TP SCH ×2 (09:30→16:16)
[2017-07-08] MEDS: CHOLECALCIFEROL (VIT D3) 1,000 UNITS TABLET PO SCH (09:30)
[2017-07-08] MEDS: HydrOXYzine PAMOATE 25 MG CAPSULE PO SCH ×3 (09:30→20:26)
[2017-07-08] MEDS: LORazepam 2 MG TABLET PO PRN (12:46)
[2017-07-08 16:04] VITALS: BP 121/70
[2017-07-08] MEDS: ZIPRASIDONE HCL 60 MG CAPSULE PO SCH (16:53)
[2017-07-08] MEDS: DiphenhydrAMINE HCL 25 MG CAPSULE PO SCH (20:26)
[2017-07-08] MEDS: DIVALPROEX SODIUM 500 MG ER TABLET PO SCH (20:26)
[2017-07-08] MEDS: ZOLPIDEM TARTRATE 10 MG TABLET PO PRN (21:00)
[2017-07-09 02:52] VITALS: BP 122/76
[2017-07-09] MEDS: ZIPRASIDONE HCL 80 MG CAPSULE PO SCH (06:24)
[2017-07-09] MEDS: OMEPRAZOLE 20 MG CAPSULE PO SCH (06:24)
[2017-07-09 08:35] VITALS: BP 133/71
[2017-07-09] MEDS: CHOLECALCIFEROL (VIT D3) 1,000 UNITS TABLET PO SCH (08:42)
[2017-07-09] MEDS: HydrOXYzine PAMOATE 25 MG CAPSULE PO SCH ×3 (08:43→20:03)
[2017-07-09] MEDS: NYSTATIN 15 GM POWDER BOTTLE TP SCH ×2 (08:43→16:15)
[2017-07-09] MEDS: HydrALAZINE HCL 25 MG TABLET PO SCH ×3 (08:43→16:15)
[2017-07-09] MEDS: LISINOPRIL 20 MG TABLET PO SCH (08:43)
[2017-07-09] MEDS: LORazepam 2 MG TABLET PO PRN ×2 (10:08→16:15)
[2017-07-09 16:03] VITALS: BP 155/70
[2017-07-09] MEDS: ZIPRASIDONE HCL 60 MG CAPSULE PO SCH (16:49)
[2017-07-09] MEDS: DIVALPROEX SODIUM 500 MG ER TABLET PO SCH (20:03)
[2017-07-09] MEDS: DiphenhydrAMINE HCL 25 MG CAPSULE PO SCH (20:03)
[2017-07-09] MEDS: ZOLPIDEM TARTRATE 10 MG TABLET PO PRN (21:03)
[2017-07-10] MEDS: OMEPRAZOLE 20 MG CAPSULE PO SCH (06:30)
[2017-07-10] MEDS: ZIPRASIDONE HCL 80 MG CAPSULE PO SCH (06:30)
[2017-07-10 07:00] VITALS: BP 140/78
[2017-07-10 08:18] VITALS: BP 129/73
[2017-07-10] MEDS: HydrALAZINE HCL 25 MG TABLET PO SCH ×3 (08:36→16:37)
[2017-07-10] MEDS: CHOLECALCIFEROL (VIT D3) 1,000 UNITS TABLET PO SCH (08:37)
[2017-07-10] MEDS: HydrOXYzine PAMOATE 25 MG CAPSULE PO SCH ×3 (08:37→20:40)
[2017-07-10] MEDS: NYSTATIN 15 GM POWDER BOTTLE TP SCH ×2 (08:37→16:37)
[2017-07-10] MEDS: LISINOPRIL 20 MG TABLET PO SCH (08:37)
[2017-07-10 14:00] VITALS: BP 132/73
[2017-07-10 16:00] VITALS: BP 132/73
[2017-07-10] MEDS: ChlorproMAZINE HCL 100 MG TABLET PO PRN (16:37)
[2017-07-10] MEDS: ZIPRASIDONE HCL 60 MG CAPSULE PO SCH (16:37)
[2017-07-10] MEDS: DIVALPROEX SODIUM 500 MG ER TABLET PO SCH (20:40)
[2017-07-10] MEDS: DiphenhydrAMINE HCL 25 MG CAPSULE PO SCH (20:40)
[2017-07-11] MEDS: ZIPRASIDONE HCL 80 MG CAPSULE PO SCH (06:42)
[2017-07-11] MEDS: OMEPRAZOLE 20 MG CAPSULE PO SCH (06:43)
[2017-07-11 08:04] VITALS: BP 100/60
[2017-07-11] MEDS: HydrALAZINE HCL 25 MG TABLET PO SCH ×3 (08:48→17:07)
[2017-07-11] MEDS: CHOLECALCIFEROL (VIT D3) 1,000 UNITS TABLET PO SCH (08:48)
[2017-07-11] MEDS: HydrOXYzine PAMOATE 25 MG CAPSULE PO SCH ×3 (08:48→20:36)
[2017-07-11] MEDS: LISINOPRIL 20 MG TABLET PO SCH (08:48)
[2017-07-11] MEDS: NYSTATIN 15 GM POWDER BOTTLE TP SCH ×2 (08:49→17:07)
[2017-07-11 16:00] VITALS: BP 133/86
[2017-07-11] MEDS: ChlorproMAZINE HCL 100 MG TABLET PO PRN (16:23)
[2017-07-11] MEDS: ZIPRASIDONE HCL 60 MG CAPSULE PO SCH (17:07)
[2017-07-11] MEDS: DiphenhydrAMINE HCL 25 MG CAPSULE PO SCH (20:36)
[2017-07-11] MEDS: DIVALPROEX SODIUM 500 MG ER TABLET PO SCH (20:36)
[2017-07-12] MEDS: OMEPRAZOLE 20 MG CAPSULE PO SCH (06:32)
[2017-07-12] MEDS: ZIPRASIDONE HCL 80 MG CAPSULE PO SCH (07:03)
[2017-07-12 08:16] VITALS: BP 130/60
[2017-07-12] MEDS: LISINOPRIL 20 MG TABLET PO SCH (08:43)
[2017-07-12] MEDS: CHOLECALCIFEROL (VIT D3) 1,000 UNITS TABLET PO SCH (08:43)
[2017-07-12] MEDS: HydrOXYzine PAMOATE 25 MG CAPSULE PO SCH ×2 (08:43→16:54)
[2017-07-12] MEDS: NYSTATIN 15 GM POWDER BOTTLE TP SCH ×2 (08:43→16:55)
[2017-07-12] MEDS: HydrALAZINE HCL 25 MG TABLET PO SCH ×3 (08:43→16:55)
[2017-07-12 13:00] VITALS: BP 120/52
[2017-07-12 16:08] VITALS: BP 132/77
[2017-07-12] MEDS: ChlorproMAZINE HCL 100 MG TABLET PO PRN (16:11)
[2017-07-12] MEDS: ZIPRASIDONE HCL 60 MG CAPSULE PO SCH (16:54)
[2017-07-12] MEDS: DiphenhydrAMINE HCL 25 MG CAPSULE PO SCH (20:34)
[2017-07-12] MEDS: DIVALPROEX SODIUM 500 MG ER TABLET PO SCH (20:34)
[2017-07-13] MEDS: OMEPRAZOLE 20 MG CAPSULE PO SCH (06:37)
[2017-07-13] MEDS: ZIPRASIDONE HCL 80 MG CAPSULE PO SCH (06:37)
[2017-07-13 08:24] VITALS: BP 119/67
[2017-07-13 08:41] LABS: BASOPHILS % (AUTO) 0.6 % (0.0-2.0); EOSINOPHILS % (AUTO) 2.3 % (1.0-6.0); HEMATOCRIT 35.6 % (36-46); HEMOGLOBIN 12.2 g/dL (12.0-16.0); LYMPHOCYTES # (AUTO) 1.2 K/uL (1.0-4.8); LYMPHOCYTES % (AUTO) 31.4 % (22.0-44.0); MEAN CORPUSCULAR HEMOGLOBIN 32.5 pg (26.0-34.0); MEAN CORPUSCULAR HGB CONC 34.2 G/dL (31.0-37.0); MEAN CORPUSCULAR VOLUME 95 fL (80-100); MONOCYTES # (AUTO) 0.4 K/uL (0.1-1.0); MONOCYTES % (AUTO) 11.5 % (2.0-9.0); NEUTROPHILS # (AUTO) 2.1 K/uL (1.8-7.7); NEUTROPHILS % (AUTO) 54.2 % (40.0-70.0); PLATELET COUNT (AUTO) 210 K/uL (150-450); RED BLOOD CELL COUNT(AUTO) 3.74 MIL/uL (4.00-5.20); RED CELL DISTRIBUTION WIDTH 13.4 % (11.5-14.5)
[2017-07-13] MEDS: HydrALAZINE HCL 25 MG TABLET PO SCH ×3 (08:57→16:28)
[2017-07-13] MEDS: CHOLECALCIFEROL (VIT D3) 1,000 UNITS TABLET PO SCH (08:57)
[2017-07-13] MEDS: LISINOPRIL 20 MG TABLET PO SCH (08:57)
[2017-07-13] MEDS: TRIHEXYPHENIDYL HCL 5 MG TABLET PO SCH ×2 (08:57→16:28)
[2017-07-13] MEDS: NYSTATIN 15 GM POWDER BOTTLE TP SCH ×2 (08:58→16:28)
[2017-07-13 09:09] LABS: HEMOGLOBIN A1C 5.6 % (4.5-6.2)
[2017-07-13 09:13] LABS: ALANINE AMINOTRANSFERASE 25 U/L (12-78); ALBUMIN 3.2 g/dL (3.4-5.0); ALKALINE PHOSPHATASE 59 U/L (46-116); ASPARTATE AMINOTRANSFERASE 10 U/L (15-37); BILIRUBIN,TOTAL 0.2 mg/dL (0.1-1.0); CHOLESTEROL 144 mg/dL (131-200); HDL CHOLESTEROL 72 mg/dL (40-60); LDL CHOL (CALC.) 62 mg/dL (0-130); THYROID STIMULATING HORMONE 1.84 uIU/mL (0.36-3.74); TOTAL PROTEIN, SERUM 6.5 g/dL (6.4-8.2); TRIGLYCERIDES 48 mg/dL (15-150); VALPROIC ACID 69 mcg/mL (50-100)
[2017-07-13 09:33] LABS: BILIRUBIN,DIRECT < 0.05 mg/dL (0.00-0.20)
[2017-07-13 12:20] VITALS: BP 125/62
[2017-07-13 16:09] VITALS: BP 116/66
[2017-07-13] MEDS: ZIPRASIDONE HCL 60 MG CAPSULE PO SCH (16:28)
[2017-07-13] MEDS: DIVALPROEX SODIUM 500 MG ER TABLET PO SCH (20:30)
[2017-07-13] MEDS: DiphenhydrAMINE HCL 25 MG CAPSULE PO SCH (20:30)
[2017-07-14 06:26] VITALS: BP 138/92
[2017-07-14] MEDS: ZIPRASIDONE HCL 80 MG CAPSULE PO SCH (06:33)
[2017-07-14] MEDS: OMEPRAZOLE 20 MG CAPSULE PO SCH (06:33)
[2017-07-14] MEDS: CHOLECALCIFEROL (VIT D3) 1,000 UNITS TABLET PO SCH (08:05)
[2017-07-14] MEDS: LISINOPRIL 20 MG TABLET PO SCH (08:05)
[2017-07-14] MEDS: TRIHEXYPHENIDYL HCL 5 MG TABLET PO SCH ×2 (08:05→16:49)
[2017-07-14] MEDS: HydrALAZINE HCL 25 MG TABLET PO SCH ×3 (08:05→16:49)
[2017-07-14] MEDS: LORazepam 2 MG TABLET PO PRN ×2 (08:05→16:50)
[2017-07-14] MEDS: ChlorproMAZINE HCL 100 MG TABLET PO PRN ×2 (08:06→16:49)
[2017-07-14] MEDS: NYSTATIN 15 GM POWDER BOTTLE TP SCH ×2 (08:07→16:49)
[2017-07-14 08:14] VITALS: BP 122/68
[2017-07-14 16:15] VITALS: BP 132/88
[2017-07-14] MEDS: ZIPRASIDONE HCL 60 MG CAPSULE PO SCH (16:50)
[2017-07-14] MEDS: ZOLPIDEM TARTRATE 10 MG TABLET PO PRN (20:37)
[2017-07-14] MEDS: DiphenhydrAMINE HCL 25 MG CAPSULE PO SCH (20:37)
[2017-07-14] MEDS: DIVALPROEX SODIUM 500 MG ER TABLET PO SCH (20:37)
[2017-07-15 05:43] VITALS: BP 127/66
[2017-07-15] MEDS: OMEPRAZOLE 20 MG CAPSULE PO SCH (06:32)
[2017-07-15] MEDS: ZIPRASIDONE HCL 80 MG CAPSULE PO SCH (06:55)
[2017-07-15 08:25] VITALS: BP 115/75
[2017-07-15] MEDS: HydrALAZINE HCL 25 MG TABLET PO SCH ×3 (08:36→16:55)
[2017-07-15] MEDS: CHOLECALCIFEROL (VIT D3) 1,000 UNITS TABLET PO SCH (08:36)
[2017-07-15] MEDS: TRIHEXYPHENIDYL HCL 5 MG TABLET PO SCH ×2 (08:36→16:55)
[2017-07-15] MEDS: LISINOPRIL 20 MG TABLET PO SCH (08:36)
[2017-07-15] MEDS: NYSTATIN 15 GM POWDER BOTTLE TP SCH ×2 (08:37→16:55)
[2017-07-15] MEDS: LORazepam 2 MG TABLET PO PRN (08:37)
[2017-07-15 16:42] VITALS: BP 112/68
[2017-07-15] MEDS: ZIPRASIDONE HCL 60 MG CAPSULE PO SCH (16:55)
[2017-07-15] MEDS: DIVALPROEX SODIUM 500 MG ER TABLET PO SCH (20:40)
[2017-07-15] MEDS: DiphenhydrAMINE HCL 25 MG CAPSULE PO SCH (20:43)
[2017-07-16 04:55] VITALS: BP 114/86
[2017-07-16] MEDS: ZIPRASIDONE HCL 80 MG CAPSULE PO SCH (06:45)
[2017-07-16] MEDS: OMEPRAZOLE 20 MG CAPSULE PO SCH (07:12)
[2017-07-16 08:23] VITALS: BP 115/53
[2017-07-16 09:00] VITALS: BP 125/72
[2017-07-16] MEDS: NICOTINE 14 MG/24 HOUR PATCH TD SCH (09:00)
[2017-07-16] MEDS: HydrALAZINE HCL 25 MG TABLET PO SCH ×3 (09:04→17:35)
[2017-07-16] MEDS: TRIHEXYPHENIDYL HCL 5 MG TABLET PO SCH ×2 (09:04→17:35)
[2017-07-16] MEDS: CHOLECALCIFEROL (VIT D3) 1,000 UNITS TABLET PO SCH (09:04)
[2017-07-16] MEDS: ChlorproMAZINE HCL 100 MG TABLET PO PRN ×2 (09:04→16:26)
[2017-07-16] MEDS: LISINOPRIL 20 MG TABLET PO SCH (09:04)
[2017-07-16] MEDS: NYSTATIN 15 GM POWDER BOTTLE TP SCH ×2 (09:04→16:26)
[2017-07-16 16:06] VITALS: BP 127/84
[2017-07-16] MEDS: ZIPRASIDONE HCL 60 MG CAPSULE PO SCH (17:35)
[2017-07-16] MEDS: LORazepam 2 MG TABLET PO PRN (18:20)
[2017-07-16] MEDS: DIVALPROEX SODIUM 500 MG ER TABLET PO SCH (20:11)
[2017-07-16] MEDS: DiphenhydrAMINE HCL 25 MG CAPSULE PO SCH (20:11)
[2017-07-17 04:09] VITALS: BP 126/74
[2017-07-17] MEDS: ZIPRASIDONE HCL 80 MG CAPSULE PO SCH (06:33)
[2017-07-17] MEDS: OMEPRAZOLE 20 MG CAPSULE PO SCH (06:33)
[2017-07-17 08:25] VITALS: BP 118/64
[2017-07-17] MEDS: TRIHEXYPHENIDYL HCL 5 MG TABLET PO SCH ×2 (08:52→16:37)
[2017-07-17] MEDS: CHOLECALCIFEROL (VIT D3) 1,000 UNITS TABLET PO SCH (08:52)
[2017-07-17] MEDS: LISINOPRIL 20 MG TABLET PO SCH (08:52)
[2017-07-17] MEDS: NYSTATIN 15 GM POWDER BOTTLE TP SCH ×2 (08:52→16:37)
[2017-07-17] MEDS: NICOTINE 14 MG/24 HOUR PATCH TD SCH (08:53)
[2017-07-17] MEDS: ChlorproMAZINE HCL 100 MG TABLET PO PRN ×2 (08:53→15:58)
[2017-07-17] MEDS: HydrALAZINE HCL 25 MG TABLET PO SCH ×3 (09:12→16:37)
[2017-07-17] MEDS: LORazepam 2 MG TABLET PO PRN (12:54)
[2017-07-17 16:07] VITALS: BP 134/88
[2017-07-17] MEDS: ZIPRASIDONE HCL 60 MG CAPSULE PO SCH (16:37)
[2017-07-17] MEDS: DIVALPROEX SODIUM 500 MG ER TABLET PO SCH (20:30)
[2017-07-17] MEDS: DiphenhydrAMINE HCL 25 MG CAPSULE PO SCH (20:31)
[2017-07-18] VITALS (9 sets, daily range): BP systolic 120–142; BP diastolic 70–84
[2017-07-18] MEDS: OMEPRAZOLE 20 MG CAPSULE PO SCH (06:22)
[2017-07-18] MEDS: ZIPRASIDONE HCL 80 MG CAPSULE PO SCH (06:23)
[2017-07-18] MEDS: NICOTINE 14 MG/24 HOUR PATCH TD SCH (09:00)
[2017-07-18] MEDS: CHOLECALCIFEROL (VIT D3) 1,000 UNITS TABLET PO SCH (09:17)
[2017-07-18] MEDS: LISINOPRIL 20 MG TABLET PO SCH (09:17)
[2017-07-18] MEDS: TRIHEXYPHENIDYL HCL 5 MG TABLET PO SCH ×2 (09:17→16:34)
[2017-07-18] MEDS: HydrALAZINE HCL 25 MG TABLET PO SCH ×3 (09:17→16:34)
[2017-07-18] MEDS: NYSTATIN 15 GM POWDER BOTTLE TP SCH ×2 (09:18→16:34)
[2017-07-18] MEDS: ZIPRASIDONE HCL 60 MG CAPSULE PO SCH (16:34)
[2017-07-18] MEDS: DIVALPROEX SODIUM 500 MG ER TABLET PO SCH (20:18)
[2017-07-18] MEDS: DiphenhydrAMINE HCL 25 MG CAPSULE PO SCH (20:18)
[2017-07-19 06:00] VITALS: BP 135/68
[2017-07-19 06:02] VITALS: BP 135/68
[2017-07-19] MEDS: OMEPRAZOLE 20 MG CAPSULE PO SCH (06:36)
[2017-07-19] MEDS: ZIPRASIDONE HCL 80 MG CAPSULE PO SCH (06:36)
[2017-07-19] MEDS: TRIHEXYPHENIDYL HCL 5 MG TABLET PO SCH ×2 (08:06→16:36)
[2017-07-19] MEDS: HydrALAZINE HCL 25 MG TABLET PO SCH ×3 (08:06→16:39)
[2017-07-19] MEDS: LORazepam 2 MG TABLET PO PRN (08:06)
[2017-07-19] MEDS: ChlorproMAZINE HCL 100 MG TABLET PO PRN (08:06)
[2017-07-19] MEDS: NICOTINE 14 MG/24 HOUR PATCH TD SCH (08:06)
[2017-07-19] MEDS: LISINOPRIL 20 MG TABLET PO SCH (08:06)
[2017-07-19] MEDS: CHOLECALCIFEROL (VIT D3) 1,000 UNITS TABLET PO SCH (08:06)
[2017-07-19] MEDS: NYSTATIN 15 GM POWDER BOTTLE TP SCH ×2 (08:07→16:39)
[2017-07-19 08:32] VITALS: BP 137/86
[2017-07-19 16:03] VITALS: BP 125/64
[2017-07-19] MEDS: ZIPRASIDONE HCL 60 MG CAPSULE PO SCH (16:36)
[2017-07-19] MEDS: DiphenhydrAMINE HCL 25 MG CAPSULE PO SCH (20:38)
[2017-07-19] MEDS: DIVALPROEX SODIUM 500 MG ER TABLET PO SCH (20:38)
[2017-07-20 02:25] VITALS: BP 108/68
[2017-07-20] MEDS: ZIPRASIDONE HCL 80 MG CAPSULE PO SCH (06:32)
[2017-07-20] MEDS: OMEPRAZOLE 20 MG CAPSULE PO SCH (06:32)
[2017-07-20 08:31] VITALS: BP 130/65
[2017-07-20] MEDS: CHOLECALCIFEROL (VIT D3) 1,000 UNITS TABLET PO SCH (09:01)
[2017-07-20] MEDS: LISINOPRIL 20 MG TABLET PO SCH (09:01)
[2017-07-20] MEDS: HydrALAZINE HCL 25 MG TABLET PO SCH ×3 (09:01→17:13)
[2017-07-20] MEDS: NYSTATIN 15 GM POWDER BOTTLE TP SCH ×2 (09:01→17:13)
[2017-07-20] MEDS: NICOTINE 14 MG/24 HOUR PATCH TD SCH (09:01)
[2017-07-20] MEDS: TRIHEXYPHENIDYL HCL 5 MG TABLET PO SCH ×2 (09:06→17:13)
[2017-07-20] MEDS: ZIPRASIDONE HCL 60 MG CAPSULE PO SCH (17:13)
[2017-07-20] MEDS: LORazepam 2 MG TABLET PO PRN (17:14)
[2017-07-20] MEDS: ChlorproMAZINE HCL 100 MG TABLET PO PRN (17:14)
[2017-07-20 17:33] VITALS: BP 115/77
[2017-07-20] MEDS: ZOLPIDEM TARTRATE 10 MG TABLET PO PRN (21:10)
[2017-07-20] MEDS: DiphenhydrAMINE HCL 25 MG CAPSULE PO SCH (21:10)
[2017-07-20] MEDS: DIVALPROEX SODIUM 500 MG ER TABLET PO SCH (21:10)
[2017-07-21] MEDS: ZIPRASIDONE HCL 80 MG CAPSULE PO SCH (06:31)
[2017-07-21] MEDS: OMEPRAZOLE 20 MG CAPSULE PO SCH (06:31)
[2017-07-21 08:55] VITALS: BP 105/58
[2017-07-21] MEDS: TRIHEXYPHENIDYL HCL 5 MG TABLET PO SCH ×2 (08:59→17:04)
[2017-07-21] MEDS: LISINOPRIL 20 MG TABLET PO SCH (08:59)
[2017-07-21] MEDS: HydrALAZINE HCL 25 MG TABLET PO SCH ×3 (08:59→17:04)
[2017-07-21] MEDS: CHOLECALCIFEROL (VIT D3) 1,000 UNITS TABLET PO SCH (08:59)
[2017-07-21] MEDS: NYSTATIN 15 GM POWDER BOTTLE TP SCH ×2 (09:00→16:21)
[2017-07-21] MEDS: NICOTINE 14 MG/24 HOUR PATCH TD SCH (09:00)
[2017-07-21 09:02] VITALS: BP 137/71
[2017-07-21] MEDS: LORazepam 2 MG TABLET PO PRN (16:21)
[2017-07-21 16:38] VITALS: BP 135/70
[2017-07-21] MEDS: ZIPRASIDONE HCL 60 MG CAPSULE PO SCH (17:04)
[2017-07-21] MEDS: DiphenhydrAMINE HCL 25 MG CAPSULE PO SCH (20:45)
[2017-07-21] MEDS: DIVALPROEX SODIUM 500 MG ER TABLET PO SCH (20:45)
[2017-07-22] MEDS: ZIPRASIDONE HCL 80 MG CAPSULE PO SCH (06:32)
[2017-07-22] MEDS: OMEPRAZOLE 20 MG CAPSULE PO SCH (06:32)
[2017-07-22 07:00] VITALS: BP 140/87
[2017-07-22 08:21] VITALS: BP 119/77
[2017-07-22] MEDS: HydrALAZINE HCL 25 MG TABLET PO SCH ×3 (08:53→17:12)
[2017-07-22] MEDS: CHOLECALCIFEROL (VIT D3) 1,000 UNITS TABLET PO SCH (08:53)
[2017-07-22] MEDS: TRIHEXYPHENIDYL HCL 5 MG TABLET PO SCH ×2 (08:53→17:12)
[2017-07-22] MEDS: NYSTATIN 15 GM POWDER BOTTLE TP SCH ×2 (08:53→17:12)
[2017-07-22] MEDS: NICOTINE 14 MG/24 HOUR PATCH TD SCH (08:54)
[2017-07-22] MEDS: LISINOPRIL 20 MG TABLET PO SCH (08:54)
[2017-07-22] MEDS: ChlorproMAZINE HCL 100 MG TABLET PO PRN (12:45)
[2017-07-22 16:17] VITALS: BP 111/65
[2017-07-22] MEDS: LORazepam 2 MG TABLET PO PRN (17:12)
[2017-07-22] MEDS: ZIPRASIDONE HCL 60 MG CAPSULE PO SCH (17:12)
[2017-07-22] MEDS: DIVALPROEX SODIUM 500 MG ER TABLET PO SCH (20:54)
[2017-07-22] MEDS: DiphenhydrAMINE HCL 25 MG CAPSULE PO SCH (20:54)
[2017-07-22] MEDS: ZOLPIDEM TARTRATE 10 MG TABLET PO PRN (20:54)
[2017-07-23 06:34] VITALS: BP 140/75
[2017-07-23] MEDS: OMEPRAZOLE 20 MG CAPSULE PO SCH (06:39)
[2017-07-23] MEDS: ZIPRASIDONE HCL 80 MG CAPSULE PO SCH (07:05)
[2017-07-23 08:09] VITALS: BP 127/60
[2017-07-23] MEDS: NICOTINE 7 MG/24 HOUR PATCH TD SCH (09:00)
[2017-07-23] MEDS: LISINOPRIL 20 MG TABLET PO SCH (09:08)
[2017-07-23] MEDS: HydrALAZINE HCL 25 MG TABLET PO SCH ×3 (09:08→16:27)
[2017-07-23] MEDS: CHOLECALCIFEROL (VIT D3) 1,000 UNITS TABLET PO SCH (09:08)
[2017-07-23] MEDS: TRIHEXYPHENIDYL HCL 5 MG TABLET PO SCH ×2 (09:08→16:27)
[2017-07-23] MEDS: NYSTATIN 15 GM POWDER BOTTLE TP SCH ×2 (09:50→16:30)
[2017-07-23 12:58] VITALS: BP 130/67
[2017-07-23 16:09] VITALS: BP 121/69
[2017-07-23] MEDS: ZIPRASIDONE HCL 60 MG CAPSULE PO SCH (16:27)
[2017-07-23] MEDS: DiphenhydrAMINE HCL 25 MG CAPSULE PO SCH (20:10)
[2017-07-23] MEDS: DIVALPROEX SODIUM 500 MG ER TABLET PO SCH (20:10)
[2017-07-24 06:32] VITALS: BP 111/65
[2017-07-24] MEDS: ZIPRASIDONE HCL 80 MG CAPSULE PO SCH (06:36)
[2017-07-24] MEDS: OMEPRAZOLE 20 MG CAPSULE PO SCH (06:36)
[2017-07-24 08:47] VITALS: BP 131/53
[2017-07-24] MEDS: CHOLECALCIFEROL (VIT D3) 1,000 UNITS TABLET PO SCH (08:54)
[2017-07-24] MEDS: TRIHEXYPHENIDYL HCL 5 MG TABLET PO SCH ×2 (08:54→17:19)
[2017-07-24] MEDS: LISINOPRIL 20 MG TABLET PO SCH (08:54)
[2017-07-24] MEDS: NYSTATIN 15 GM POWDER BOTTLE TP SCH ×2 (08:55→17:19)
[2017-07-24] MEDS: HydrALAZINE HCL 25 MG TABLET PO SCH ×3 (08:55→17:19)
[2017-07-24 08:57] LABS: APPEARANCE,URINE CLEAR (CLEAR); BILIRUBIN,URINE NEGATIVE (NEGATIVE); GLUCOSE, URINE (UA) NEGATIVE (NEGATIVE); KETONES,URINE NEGATIVE (NEGATIVE); LEUKOCYTE ESTERASE ,URINE SMALL (NEGATIVE); NITRATE,URINE NEGATIVE (NEGATIVE); OCCULT BLOOD,URINE NEGATIVE (NEGATIVE); PH,URINE 5.5 (5.0-8.0); PROTEIN,URINE NEGATIVE (NEGATIVE); UROBILINOGEN,URINE 0.2 mg/dL (<=1.0)
[2017-07-24] MEDS: NICOTINE 7 MG/24 HOUR PATCH TD SCH (09:00)
[2017-07-24 09:30] LABS: BACTERIA,URINE Rare /HPF (None Seen); RBC,URINE 0-2 /HPF (0-2); SQUAMOUS EPITHELIAL CELL,UR Rare /LPF (None Seen)
[2017-07-24 16:22] VITALS: BP 139/85
[2017-07-24] MEDS: LORazepam 2 MG TABLET PO PRN (16:30)
[2017-07-24] MEDS: ZIPRASIDONE HCL 60 MG CAPSULE PO SCH (17:19)
[2017-07-24] MEDS: DiphenhydrAMINE HCL 25 MG CAPSULE PO SCH (20:31)
[2017-07-24] MEDS: DIVALPROEX SODIUM 500 MG ER TABLET PO SCH (20:31)
[2017-07-25] MEDS: OMEPRAZOLE 20 MG CAPSULE PO SCH (06:26)
[2017-07-25] MEDS: ZIPRASIDONE HCL 80 MG CAPSULE PO SCH (06:26)
[2017-07-25 06:56] VITALS: BP 144/78
[2017-07-25 08:27] VITALS: BP 144/79
[2017-07-25] MEDS: NYSTATIN 15 GM POWDER BOTTLE TP SCH ×2 (08:42→16:49)
[2017-07-25] MEDS: TRIHEXYPHENIDYL HCL 5 MG TABLET PO SCH ×2 (08:42→16:49)
[2017-07-25] MEDS: LISINOPRIL 20 MG TABLET PO SCH (08:42)
[2017-07-25] MEDS: CHOLECALCIFEROL (VIT D3) 1,000 UNITS TABLET PO SCH (08:42)
[2017-07-25] MEDS: LORazepam 2 MG TABLET PO PRN ×2 (08:43→16:08)
[2017-07-25] MEDS: HydrALAZINE HCL 25 MG TABLET PO SCH ×3 (08:43→16:48)
[2017-07-25 13:10] VITALS: BP 130/76
[2017-07-25 16:04] VITALS: BP 133/78
[2017-07-25] MEDS: ZIPRASIDONE HCL 60 MG CAPSULE PO SCH (16:48)
[2017-07-25] MEDS: DIVALPROEX SODIUM 500 MG ER TABLET PO SCH (20:14)
[2017-07-25] MEDS: DiphenhydrAMINE HCL 25 MG CAPSULE PO SCH (20:14)
[2017-07-26 05:48] VITALS: BP 139/72
[2017-07-26] MEDS: OMEPRAZOLE 20 MG CAPSULE PO SCH (06:35)
[2017-07-26] MEDS: ZIPRASIDONE HCL 80 MG CAPSULE PO SCH (07:04)
[2017-07-26 08:02] VITALS: BP 108/55
[2017-07-26 08:30] VITALS: BP 116/70
[2017-07-26] MEDS: CHOLECALCIFEROL (VIT D3) 1,000 UNITS TABLET PO SCH (08:34)
[2017-07-26] MEDS: HydrALAZINE HCL 25 MG TABLET PO SCH ×3 (08:34→17:24)
[2017-07-26] MEDS: TRIHEXYPHENIDYL HCL 5 MG TABLET PO SCH ×2 (08:34→17:25)
[2017-07-26] MEDS: NYSTATIN 15 GM POWDER BOTTLE TP SCH ×2 (08:34→17:25)
[2017-07-26] MEDS: LISINOPRIL 20 MG TABLET PO SCH (08:34)
[2017-07-26] MEDS: LORazepam 2 MG TABLET PO PRN ×2 (09:13→16:08)
[2017-07-26 16:16] VITALS: BP 130/80
[2017-07-26] MEDS: ZIPRASIDONE HCL 60 MG CAPSULE PO SCH (17:25)
[2017-07-26] MEDS: DiphenhydrAMINE HCL 25 MG CAPSULE PO SCH (20:27)
[2017-07-26] MEDS: DIVALPROEX SODIUM 500 MG ER TABLET PO SCH (20:27)
[2017-07-27 06:01] VITALS: BP 131/66
[2017-07-27] MEDS: OMEPRAZOLE 20 MG CAPSULE PO SCH (06:32)
[2017-07-27] MEDS: ZIPRASIDONE HCL 80 MG CAPSULE PO SCH (06:32)
[2017-07-27 08:27] VITALS: BP 140/66
[2017-07-27] MEDS: NYSTATIN 15 GM POWDER BOTTLE TP SCH ×2 (08:42→16:20)
[2017-07-27] MEDS: TRIHEXYPHENIDYL HCL 5 MG TABLET PO SCH ×2 (08:42→16:18)
[2017-07-27] MEDS: HydrALAZINE HCL 25 MG TABLET PO SCH ×3 (08:42→16:18)
[2017-07-27] MEDS: CHOLECALCIFEROL (VIT D3) 1,000 UNITS TABLET PO SCH (08:42)
[2017-07-27] MEDS: LISINOPRIL 20 MG TABLET PO SCH (08:42)
[2017-07-27] MEDS: LORazepam 2 MG TABLET PO PRN ×2 (09:35→16:18)
[2017-07-27 16:02] VITALS: BP 140/88
[2017-07-27] MEDS: ZIPRASIDONE HCL 60 MG CAPSULE PO SCH (16:18)
[2017-07-27] MEDS: DIVALPROEX SODIUM 500 MG ER TABLET PO SCH (20:05)
[2017-07-27] MEDS: DiphenhydrAMINE HCL 25 MG CAPSULE PO SCH (20:05)
[2017-07-28] MEDS: ZIPRASIDONE HCL 80 MG CAPSULE PO SCH (06:25)
[2017-07-28] MEDS: OMEPRAZOLE 20 MG CAPSULE PO SCH (06:25)
[2017-07-28 06:41] VITALS: BP 137/90
[2017-07-28 08:42] VITALS: BP 138/87
[2017-07-28] MEDS: LISINOPRIL 20 MG TABLET PO SCH (08:51)
[2017-07-28] MEDS: TRIHEXYPHENIDYL HCL 5 MG TABLET PO SCH ×2 (08:51→16:29)
[2017-07-28] MEDS: CHOLECALCIFEROL (VIT D3) 1,000 UNITS TABLET PO SCH (08:51)
[2017-07-28] MEDS: HydrALAZINE HCL 25 MG TABLET PO SCH ×3 (08:51→16:20)
[2017-07-28] MEDS: NYSTATIN 15 GM POWDER BOTTLE TP SCH ×2 (08:51→16:20)
[2017-07-28] MEDS: ZIPRASIDONE HCL 60 MG CAPSULE PO SCH (16:20)
[2017-07-28 16:35] VITALS: BP 121/70
[2017-07-28] MEDS: DiphenhydrAMINE HCL 25 MG CAPSULE PO SCH (20:14)
[2017-07-28] MEDS: DIVALPROEX SODIUM 500 MG ER TABLET PO SCH (20:14)
[2017-07-29 01:39] VITALS: BP 117/76
[2017-07-29] MEDS: ZIPRASIDONE HCL 80 MG CAPSULE PO SCH (06:35)
[2017-07-29] MEDS: OMEPRAZOLE 20 MG CAPSULE PO SCH (06:35)
[2017-07-29] MEDS: TRIHEXYPHENIDYL HCL 5 MG TABLET PO SCH ×2 (08:32→17:29)
[2017-07-29] MEDS: CHOLECALCIFEROL (VIT D3) 1,000 UNITS TABLET PO SCH (08:32)
[2017-07-29] MEDS: HydrALAZINE HCL 25 MG TABLET PO SCH ×3 (08:32→17:29)
[2017-07-29] MEDS: LISINOPRIL 20 MG TABLET PO SCH (08:32)
[2017-07-29] MEDS: NYSTATIN 15 GM POWDER BOTTLE TP SCH ×2 (08:32→16:51)
[2017-07-29] MEDS: LORazepam 2 MG TABLET PO PRN ×2 (08:33→16:51)
[2017-07-29 08:44] VITALS: BP 156/82
[2017-07-29 10:00] VITALS: BP 138/74
[2017-07-29 16:40] VITALS: BP 123/76
[2017-07-29] MEDS: ZIPRASIDONE HCL 60 MG CAPSULE PO SCH (17:29)
[2017-07-29] MEDS: DIVALPROEX SODIUM 500 MG ER TABLET PO SCH (20:31)
[2017-07-29] MEDS: DiphenhydrAMINE HCL 25 MG CAPSULE PO SCH (20:31)
[2017-07-30] MEDS: ZIPRASIDONE HCL 80 MG CAPSULE PO SCH (06:22)
[2017-07-30] MEDS: OMEPRAZOLE 20 MG CAPSULE PO SCH (06:22)
[2017-07-30 08:00] VITALS: BP 140/81
[2017-07-30] MEDS: HydrALAZINE HCL 25 MG TABLET PO SCH ×3 (09:00→16:53)
[2017-07-30] MEDS: CHOLECALCIFEROL (VIT D3) 1,000 UNITS TABLET PO SCH (09:00)
[2017-07-30] MEDS: LISINOPRIL 20 MG TABLET PO SCH (09:00)
[2017-07-30] MEDS: TRIHEXYPHENIDYL HCL 5 MG TABLET PO SCH ×2 (09:00→16:54)
[2017-07-30] MEDS: NYSTATIN 15 GM POWDER BOTTLE TP SCH ×2 (09:01→16:54)
[2017-07-30] MEDS: LORazepam 2 MG TABLET PO PRN ×2 (09:11→15:52)
[2017-07-30 11:30] VITALS: BP 132/78
[2017-07-30] MEDS: ChlorproMAZINE HCL 100 MG TABLET PO PRN ×2 (12:09→16:53)
[2017-07-30 16:12] VITALS: BP 113/85
[2017-07-30] MEDS: ZIPRASIDONE HCL 60 MG CAPSULE PO SCH (16:54)
[2017-07-30] MEDS: DiphenhydrAMINE HCL 25 MG CAPSULE PO SCH (20:11)
[2017-07-30] MEDS: DIVALPROEX SODIUM 500 MG ER TABLET PO SCH (20:11)
[2017-07-31] MEDS: OMEPRAZOLE 20 MG CAPSULE PO SCH (06:40)
[2017-07-31] MEDS: ZIPRASIDONE HCL 80 MG CAPSULE PO SCH (07:06)
[2017-07-31 07:32] VITALS: BP 142/82
[2017-07-31] MEDS: TRIHEXYPHENIDYL HCL 5 MG TABLET PO SCH ×2 (08:32→16:55)
[2017-07-31] MEDS: CHOLECALCIFEROL (VIT D3) 1,000 UNITS TABLET PO SCH (08:32)
[2017-07-31] MEDS: LISINOPRIL 20 MG TABLET PO SCH (08:32)
[2017-07-31] MEDS: LORazepam 2 MG TABLET PO PRN (08:33)
[2017-07-31] MEDS: ChlorproMAZINE HCL 100 MG TABLET PO PRN (08:33)
[2017-07-31 08:35] VITALS: BP 105/60
[2017-07-31] MEDS: HydrALAZINE HCL 25 MG TABLET PO SCH ×3 (08:39→16:55)
[2017-07-31] MEDS: NYSTATIN 15 GM POWDER BOTTLE TP SCH ×2 (08:39→16:55)
[2017-07-31 16:19] VITALS: BP 110/70
[2017-07-31] MEDS: ZIPRASIDONE HCL 60 MG CAPSULE PO SCH (16:55)
[2017-07-31] MEDS: DIVALPROEX SODIUM 500 MG ER TABLET PO SCH (20:28)
[2017-07-31] MEDS: DiphenhydrAMINE HCL 25 MG CAPSULE PO SCH (20:28)
[2017-08-01] MEDS: OMEPRAZOLE 20 MG CAPSULE PO SCH (06:15)
[2017-08-01] MEDS: ZIPRASIDONE HCL 80 MG CAPSULE PO SCH (06:15)
[2017-08-01 06:58] VITALS: BP 126/79
[2017-08-01 08:18] VITALS: BP 145/82
[2017-08-01] MEDS: NYSTATIN 15 GM POWDER BOTTLE TP SCH ×2 (09:00→17:18)
[2017-08-01] MEDS: HydrALAZINE HCL 25 MG TABLET PO SCH ×3 (09:20→17:18)
[2017-08-01] MEDS: LORazepam 2 MG TABLET PO PRN (09:21)
[2017-08-01] MEDS: TRIHEXYPHENIDYL HCL 5 MG TABLET PO SCH ×2 (09:21→17:18)
[2017-08-01] MEDS: LISINOPRIL 20 MG TABLET PO SCH (09:21)
[2017-08-01] MEDS: ChlorproMAZINE HCL 100 MG TABLET PO PRN (09:21)
[2017-08-01] MEDS: CHOLECALCIFEROL (VIT D3) 1,000 UNITS TABLET PO SCH (09:21)
[2017-08-01 16:05] VITALS: BP 118/64
[2017-08-01] MEDS: ZIPRASIDONE HCL 60 MG CAPSULE PO SCH (17:18)
[2017-08-01] MEDS: DIVALPROEX SODIUM 500 MG ER TABLET PO SCH (20:53)
[2017-08-01] MEDS: DiphenhydrAMINE HCL 25 MG CAPSULE PO SCH (20:53)
[2017-08-02 00:23] VITALS: BP 102/61
[2017-08-02] MEDS: ZIPRASIDONE HCL 80 MG CAPSULE PO SCH (06:33)
[2017-08-02] MEDS: OMEPRAZOLE 20 MG CAPSULE PO SCH (06:33)
[2017-08-02 08:37] VITALS: BP 121/58
[2017-08-02] MEDS: HydrALAZINE HCL 25 MG TABLET PO SCH ×3 (08:48→16:33)
[2017-08-02] MEDS: TRIHEXYPHENIDYL HCL 5 MG TABLET PO SCH ×2 (08:48→16:33)
[2017-08-02] MEDS: CHOLECALCIFEROL (VIT D3) 1,000 UNITS TABLET PO SCH (08:48)
[2017-08-02] MEDS: NYSTATIN 15 GM POWDER BOTTLE TP SCH ×2 (08:48→16:33)
[2017-08-02] MEDS: LISINOPRIL 20 MG TABLET PO SCH (08:49)
[2017-08-02] MEDS: LORazepam 2 MG TABLET PO PRN (13:37)
[2017-08-02] MEDS: ZIPRASIDONE HCL 60 MG CAPSULE PO SCH (16:33)
[2017-08-02 17:27] VITALS: BP 120/68
[2017-08-02] MEDS: DiphenhydrAMINE HCL 25 MG CAPSULE PO SCH ×2 (20:42→21:10)
[2017-08-02] MEDS: DIVALPROEX SODIUM 500 MG ER TABLET PO SCH ×2 (20:42→21:10)
[2017-08-03 03:21] VITALS: BP 114/67
[2017-08-03] MEDS: OMEPRAZOLE 20 MG CAPSULE PO SCH (06:50)
[2017-08-03] MEDS: ZIPRASIDONE HCL 80 MG CAPSULE PO SCH (06:50)
[2017-08-03 08:24] VITALS: BP 150/88
[2017-08-03] MEDS: NYSTATIN 15 GM POWDER BOTTLE TP SCH ×2 (08:35→16:46)
[2017-08-03] MEDS: LISINOPRIL 20 MG TABLET PO SCH (08:35)
[2017-08-03] MEDS: CHOLECALCIFEROL (VIT D3) 1,000 UNITS TABLET PO SCH (08:35)
[2017-08-03] MEDS: HydrALAZINE HCL 25 MG TABLET PO SCH ×4 (08:35→16:46)
[2017-08-03] MEDS: TRIHEXYPHENIDYL HCL 5 MG TABLET PO SCH ×2 (08:35→16:46)
[2017-08-03 16:20] VITALS: BP 145/89
[2017-08-03] MEDS: LORazepam 2 MG TABLET PO PRN (16:46)
[2017-08-03] MEDS: ZIPRASIDONE HCL 60 MG CAPSULE PO SCH (16:46)
[2017-08-03] MEDS: DIVALPROEX SODIUM 500 MG ER TABLET PO SCH (21:02)
[2017-08-03] MEDS: DiphenhydrAMINE HCL 25 MG CAPSULE PO SCH (21:02)
[2017-08-04] MEDS: OMEPRAZOLE 20 MG CAPSULE PO SCH (06:46)
[2017-08-04] MEDS: ZIPRASIDONE HCL 80 MG CAPSULE PO SCH (06:51)
[2017-08-04 07:06] VITALS: BP 139/85
[2017-08-04] MEDS: CHOLECALCIFEROL (VIT D3) 1,000 UNITS TABLET PO SCH (08:16)
[2017-08-04] MEDS: LORazepam 2 MG TABLET PO PRN ×2 (08:16→16:23)
[2017-08-04] MEDS: TRIHEXYPHENIDYL HCL 5 MG TABLET PO SCH ×2 (08:16→17:09)
[2017-08-04] MEDS: LISINOPRIL 20 MG TABLET PO SCH (08:16)
[2017-08-04] MEDS: NYSTATIN 15 GM POWDER BOTTLE TP SCH ×2 (08:17→17:10)
[2017-08-04] MEDS: HydrALAZINE HCL 25 MG TABLET PO SCH ×3 (08:18→17:09)
[2017-08-04 08:40] VITALS: BP 150/94
[2017-08-04 10:37] VITALS: BP 114/57
[2017-08-04 16:05] VITALS: BP 135/74
[2017-08-04] MEDS: ZIPRASIDONE HCL 60 MG CAPSULE PO SCH (17:09)
[2017-08-04] MEDS: DIVALPROEX SODIUM 500 MG ER TABLET PO SCH (20:29)
[2017-08-04] MEDS: DiphenhydrAMINE HCL 25 MG CAPSULE PO SCH (20:29)
[2017-08-05 03:35] VITALS: BP 126/66
[2017-08-05] MEDS: OMEPRAZOLE 20 MG CAPSULE PO SCH (06:25)
[2017-08-05] MEDS: ZIPRASIDONE HCL 80 MG CAPSULE PO SCH (06:28)
[2017-08-05 08:34] VITALS: BP 116/77
[2017-08-05] MEDS: TRIHEXYPHENIDYL HCL 5 MG TABLET PO SCH ×2 (08:55→17:22)
[2017-08-05] MEDS: LORazepam 2 MG TABLET PO PRN ×2 (08:55→16:28)
[2017-08-05] MEDS: NYSTATIN 15 GM POWDER BOTTLE TP SCH ×2 (08:55→17:22)
[2017-08-05] MEDS: HydrALAZINE HCL 25 MG TABLET PO SCH ×3 (08:55→17:22)
[2017-08-05] MEDS: CHOLECALCIFEROL (VIT D3) 1,000 UNITS TABLET PO SCH (08:55)
[2017-08-05] MEDS: LISINOPRIL 20 MG TABLET PO SCH (08:55)
[2017-08-05 16:14] VITALS: BP 134/83
[2017-08-05] MEDS: ZIPRASIDONE HCL 60 MG CAPSULE PO SCH (17:22)
[2017-08-05] MEDS: DIVALPROEX SODIUM 500 MG ER TABLET PO SCH (20:54)
[2017-08-05] MEDS: DiphenhydrAMINE HCL 25 MG CAPSULE PO SCH (20:54)
[2017-08-06 06:26] VITALS: BP 138/81
[2017-08-06] MEDS: OMEPRAZOLE 20 MG CAPSULE PO SCH (06:34)
[2017-08-06] MEDS: ZIPRASIDONE HCL 80 MG CAPSULE PO SCH (06:50)
[2017-08-06] MEDS: NYSTATIN 15 GM POWDER BOTTLE TP SCH ×2 (08:49→17:11)
[2017-08-06] MEDS: CHOLECALCIFEROL (VIT D3) 1,000 UNITS TABLET PO SCH (08:49)
[2017-08-06] MEDS: VALPROIC ACID 250 MG/5 ML SYRUP UDCUP PO SCH ×2 (08:49→20:57)
[2017-08-06] MEDS: LISINOPRIL 20 MG TABLET PO SCH (08:49)
[2017-08-06] MEDS: HydrALAZINE HCL 25 MG TABLET PO SCH ×3 (08:49→17:11)
[2017-08-06] MEDS: TRIHEXYPHENIDYL HCL 5 MG TABLET PO SCH ×2 (08:49→17:11)
[2017-08-06 09:59] VITALS: BP 115/65
[2017-08-06 16:08] VITALS: BP 132/82
[2017-08-06] MEDS: ZIPRASIDONE HCL 60 MG CAPSULE PO SCH (17:11)
[2017-08-06] MEDS: LORazepam 2 MG TABLET PO PRN (17:11)
[2017-08-06] MEDS: ZOLPIDEM TARTRATE 10 MG TABLET PO PRN (20:57)
[2017-08-06] MEDS: DiphenhydrAMINE HCL 25 MG CAPSULE PO SCH (20:57)
[2017-08-07 05:23] VITALS: BP 134/66
[2017-08-07] MEDS: OMEPRAZOLE 20 MG CAPSULE PO SCH (06:14)
[2017-08-07] MEDS: ZIPRASIDONE HCL 80 MG CAPSULE PO SCH (06:14)
[2017-08-07] MEDS: LORazepam 2 MG TABLET PO PRN ×2 (08:05→16:31)
[2017-08-07] MEDS: LISINOPRIL 20 MG TABLET PO SCH (08:05)
[2017-08-07] MEDS: NYSTATIN 15 GM POWDER BOTTLE TP SCH ×2 (08:05→16:34)
[2017-08-07] MEDS: TRIHEXYPHENIDYL HCL 5 MG TABLET PO SCH ×2 (08:05→16:31)
[2017-08-07] MEDS: ChlorproMAZINE HCL 100 MG TABLET PO PRN (08:05)
[2017-08-07] MEDS: CHOLECALCIFEROL (VIT D3) 1,000 UNITS TABLET PO SCH (08:05)
[2017-08-07] MEDS: VALPROIC ACID 250 MG/5 ML SYRUP UDCUP PO SCH ×2 (08:06→20:12)
[2017-08-07 08:16] VITALS: BP 139/68
[2017-08-07] MEDS: HydrALAZINE HCL 25 MG TABLET PO SCH ×3 (08:34→16:33)
[2017-08-07 16:12] VITALS: BP 125/61
[2017-08-07] MEDS: ZIPRASIDONE HCL 60 MG CAPSULE PO SCH (16:31)
[2017-08-07] MEDS: DiphenhydrAMINE HCL 25 MG CAPSULE PO SCH (20:12)
[2017-08-08 04:00] VITALS: BP 153/78
[2017-08-08] MEDS: ZIPRASIDONE HCL 80 MG CAPSULE PO SCH (06:21)
[2017-08-08] MEDS: OMEPRAZOLE 20 MG CAPSULE PO SCH (06:21)
[2017-08-08] MEDS: LISINOPRIL 20 MG TABLET PO SCH (08:07)
[2017-08-08] MEDS: CHOLECALCIFEROL (VIT D3) 1,000 UNITS TABLET PO SCH (08:07)
[2017-08-08] MEDS: TRIHEXYPHENIDYL HCL 5 MG TABLET PO SCH ×2 (08:07→16:16)
[2017-08-08] MEDS: HydrALAZINE HCL 25 MG TABLET PO SCH ×3 (08:08→16:16)
[2017-08-08] MEDS: VALPROIC ACID 250 MG/5 ML SYRUP UDCUP PO SCH ×2 (08:08→20:11)
[2017-08-08] MEDS: LORazepam 2 MG TABLET PO PRN (08:14)
[2017-08-08] MEDS: NYSTATIN 15 GM POWDER BOTTLE TP SCH ×2 (08:14→16:16)
[2017-08-08 08:31] VITALS: BP 140/87
[2017-08-08 11:45] VITALS: BP 128/74
[2017-08-08 16:02] VITALS: BP 117/81
[2017-08-08] MEDS: ZIPRASIDONE HCL 60 MG CAPSULE PO SCH (16:17)
[2017-08-08] MEDS: DiphenhydrAMINE HCL 25 MG CAPSULE PO SCH (20:11)
[2017-08-09 03:13] VITALS: BP 112/63
[2017-08-09] MEDS: OMEPRAZOLE 20 MG CAPSULE PO SCH (06:16)
[2017-08-09] MEDS: ZIPRASIDONE HCL 80 MG CAPSULE PO SCH (06:17)
[2017-08-09 08:17] VITALS: BP 136/104
[2017-08-09] MEDS: VALPROIC ACID 250 MG/5 ML SYRUP UDCUP PO SCH ×2 (08:58→20:02)
[2017-08-09] MEDS: TRIHEXYPHENIDYL HCL 5 MG TABLET PO SCH ×2 (08:59→17:02)
[2017-08-09] MEDS: CHOLECALCIFEROL (VIT D3) 1,000 UNITS TABLET PO SCH (08:59)
[2017-08-09] MEDS: LISINOPRIL 20 MG TABLET PO SCH (08:59)
[2017-08-09] MEDS: NYSTATIN 15 GM POWDER BOTTLE TP SCH ×2 (08:59→17:02)
[2017-08-09] MEDS: HydrALAZINE HCL 25 MG TABLET PO SCH ×3 (08:59→17:02)
[2017-08-09 12:34] VITALS: BP 134/69
[2017-08-09 16:07] VITALS: BP 135/83
[2017-08-09] MEDS: LORazepam 2 MG TABLET PO PRN (17:02)
[2017-08-09] MEDS: ZIPRASIDONE HCL 60 MG CAPSULE PO SCH (17:02)
[2017-08-09] MEDS ORDERED: HALOPERIDOL LACTATE 5 MG/ML VIAL IM PRN (17:15)
[2017-08-09] MEDS ORDERED: DiphenhydrAMINE HCL 50 MG/ML VIAL IM PRN (17:15)
[2017-08-09] MEDS: ChlorproMAZINE HCL 100 MG TABLET PO PRN (19:54)
[2017-08-09] MEDS: DiphenhydrAMINE HCL 25 MG CAPSULE PO SCH (20:01)
[2017-08-10 03:20] VITALS: BP 131/71
[2017-08-10] MEDS: ZIPRASIDONE HCL 80 MG CAPSULE PO SCH (06:26)
[2017-08-10] MEDS: OMEPRAZOLE 20 MG CAPSULE PO SCH (06:26)
[2017-08-10 08:23] VITALS: BP 147/83
[2017-08-10] MEDS: VALPROIC ACID 250 MG/5 ML SYRUP UDCUP PO SCH ×2 (09:08→20:58)
[2017-08-10] MEDS: LISINOPRIL 20 MG TABLET PO SCH (09:09)
[2017-08-10] MEDS: HydrALAZINE HCL 25 MG TABLET PO SCH ×3 (09:09→16:36)
[2017-08-10] MEDS: NYSTATIN 15 GM POWDER BOTTLE TP SCH ×2 (09:09→16:36)
[2017-08-10] MEDS: CHOLECALCIFEROL (VIT D3) 1,000 UNITS TABLET PO SCH (09:09)
[2017-08-10] MEDS: TRIHEXYPHENIDYL HCL 5 MG TABLET PO SCH ×2 (09:09→16:36)
[2017-08-10] MEDS: LORazepam 2 MG TABLET PO PRN ×2 (09:09→16:36)
[2017-08-10 11:40] VITALS: BP 134/74
[2017-08-10] MEDS: ChlorproMAZINE HCL 100 MG TABLET PO PRN ×2 (12:20→16:36)
[2017-08-10 16:30] VITALS: BP 122/84
[2017-08-10] MEDS: ZIPRASIDONE HCL 60 MG CAPSULE PO SCH (16:36)
[2017-08-10] MEDS: DiphenhydrAMINE HCL 25 MG CAPSULE PO SCH (20:57)
[2017-08-10] MEDS: ZOLPIDEM TARTRATE 10 MG TABLET PO PRN (20:58)
[2017-08-11 01:19] VITALS: BP 130/67
[2017-08-11] MEDS: OMEPRAZOLE 20 MG CAPSULE PO SCH (06:32)
[2017-08-11] MEDS: ZIPRASIDONE HCL 80 MG CAPSULE PO SCH (06:32)
[2017-08-11 08:03] VITALS: BP 132/61
[2017-08-11] MEDS: NYSTATIN 15 GM POWDER BOTTLE TP SCH ×2 (08:35→16:34)
[2017-08-11] MEDS: LISINOPRIL 20 MG TABLET PO SCH (08:36)
[2017-08-11] MEDS: CHOLECALCIFEROL (VIT D3) 1,000 UNITS TABLET PO SCH (08:36)
[2017-08-11] MEDS: TRIHEXYPHENIDYL HCL 5 MG TABLET PO SCH ×2 (08:36→16:24)
[2017-08-11] MEDS: HydrALAZINE HCL 25 MG TABLET PO SCH ×3 (08:36→16:24)
[2017-08-11] MEDS: VALPROIC ACID 250 MG/5 ML SYRUP UDCUP PO SCH ×2 (08:37→20:44)
[2017-08-11 16:21] VITALS: BP 115/67
[2017-08-11] MEDS: ZIPRASIDONE HCL 60 MG CAPSULE PO SCH (16:24)
[2017-08-11] MEDS: DiphenhydrAMINE HCL 25 MG CAPSULE PO SCH (20:44)
[2017-08-12 06:01] VITALS: BP 121/66
[2017-08-12] MEDS: ZIPRASIDONE HCL 80 MG CAPSULE PO SCH (06:36)
[2017-08-12] MEDS: OMEPRAZOLE 20 MG CAPSULE PO SCH (06:36)
[2017-08-12] MEDS: TRIHEXYPHENIDYL HCL 5 MG TABLET PO SCH ×2 (08:33→16:13)
[2017-08-12] MEDS: LORazepam 2 MG TABLET PO PRN ×2 (08:33→16:13)
[2017-08-12] MEDS: LISINOPRIL 20 MG TABLET PO SCH (08:33)
[2017-08-12] MEDS: CHOLECALCIFEROL (VIT D3) 1,000 UNITS TABLET PO SCH (08:33)
[2017-08-12] MEDS: HydrALAZINE HCL 25 MG TABLET PO SCH ×3 (08:34→16:13)
[2017-08-12] MEDS: NYSTATIN 15 GM POWDER BOTTLE TP SCH ×2 (08:34→16:13)
[2017-08-12] MEDS: VALPROIC ACID 250 MG/5 ML SYRUP UDCUP PO SCH ×2 (08:37→20:21)
[2017-08-12 08:40] VITALS: BP 149/93
[2017-08-12 13:00] VITALS: BP 124/74
[2017-08-12] MEDS: ChlorproMAZINE HCL 100 MG TABLET PO PRN (13:46)
[2017-08-12 16:08] VITALS: BP 117/65
[2017-08-12] MEDS: ZIPRASIDONE HCL 60 MG CAPSULE PO SCH (16:13)
[2017-08-12] MEDS: DiphenhydrAMINE HCL 25 MG CAPSULE PO SCH (20:15)
[2017-08-13] MEDS: OMEPRAZOLE 20 MG CAPSULE PO SCH (06:34)
[2017-08-13] MEDS: ZIPRASIDONE HCL 80 MG CAPSULE PO SCH (06:34)
[2017-08-13 06:39] VITALS: BP 123/76
[2017-08-13 08:34] VITALS: BP 127/60
[2017-08-13] MEDS: NYSTATIN 15 GM POWDER BOTTLE TP SCH ×2 (09:00→16:48)
[2017-08-13] MEDS: VALPROIC ACID 250 MG/5 ML SYRUP UDCUP PO SCH ×2 (09:14→21:16)
[2017-08-13] MEDS: HydrALAZINE HCL 25 MG TABLET PO SCH ×3 (09:14→16:48)
[2017-08-13] MEDS: CHOLECALCIFEROL (VIT D3) 1,000 UNITS TABLET PO SCH (09:14)
[2017-08-13] MEDS: LISINOPRIL 20 MG TABLET PO SCH (09:15)
[2017-08-13] MEDS: TRIHEXYPHENIDYL HCL 5 MG TABLET PO SCH ×2 (09:15→16:48)
[2017-08-13 13:14] VITALS: BP 154/90
[2017-08-13 16:05] VITALS: BP 157/90
[2017-08-13] MEDS: LORazepam 2 MG TABLET PO PRN (16:09)
[2017-08-13] MEDS: ChlorproMAZINE HCL 100 MG TABLET PO PRN (16:09)
[2017-08-13] MEDS: ZIPRASIDONE HCL 60 MG CAPSULE PO SCH (16:48)
[2017-08-13 17:48] VITALS: BP 143/88
[2017-08-13] MEDS: DiphenhydrAMINE HCL 25 MG CAPSULE PO SCH (21:15)
[2017-08-14 06:32] VITALS: BP 130/79
[2017-08-14] MEDS: OMEPRAZOLE 20 MG CAPSULE PO SCH (06:34)
[2017-08-14] MEDS: ZIPRASIDONE HCL 80 MG CAPSULE PO SCH (06:34)
[2017-08-14 08:21] VITALS: BP 110/71
[2017-08-14 08:30] LABS: HEMATOCRIT 35.9 % (36-46); HEMOGLOBIN 12.2 g/dL (12.0-16.0); MEAN CORPUSCULAR HEMOGLOBIN 32.8 pg (26.0-34.0); MEAN CORPUSCULAR HGB CONC 33.9 G/dL (31.0-37.0); MEAN CORPUSCULAR VOLUME 97 fL (80-100); PLATELET COUNT (AUTO) 238 K/uL (150-450); RED BLOOD CELL COUNT(AUTO) 3.71 MIL/uL (4.00-5.20); RED CELL DISTRIBUTION WIDTH 13.9 % (11.5-14.5)
[2017-08-14] MEDS: LISINOPRIL 20 MG TABLET PO SCH (09:04)
[2017-08-14] MEDS: TRIHEXYPHENIDYL HCL 5 MG TABLET PO SCH ×2 (09:04→16:08)
[2017-08-14] MEDS: HydrALAZINE HCL 25 MG TABLET PO SCH ×3 (09:04→16:26)
[2017-08-14] MEDS: CHOLECALCIFEROL (VIT D3) 1,000 UNITS TABLET PO SCH (09:04)
[2017-08-14 09:05] LABS: HEMOGLOBIN A1C 5.7 % (4.5-6.2)
[2017-08-14] MEDS: VALPROIC ACID 250 MG/5 ML SYRUP UDCUP PO SCH ×2 (09:05→20:04)
[2017-08-14 09:12] LABS: ANION GAP 4 mmol/L (8-16); CALCIUM, TOTAL 9.4 mg/dL (8.8-10.5); CARBON DIOXIDE 33 mmol/L (22-29); CHLORIDE 99 mmol/L (98-107); CHOL/HDL RATIO 2.3 (3.9-5.7); CHOLESTEROL 141 mg/dL (131-200); CREATININE 0.83 mg/dL (0.60-1.30); GLOMERULAR FILTR. RATE CALC > 60 mL/min (>60); GLUCOSE,RANDOM 94 mg/dL (70-110); HDL CHOLESTEROL 62 mg/dL (40-60); LDL CHOL (CALC.) 60 mg/dL (0-130); PHOSPHORUS 4.6 mg/dL (2.5-4.9); POTASSIUM 4.8 mmol/L (3.5-5.1); SODIUM SERUM 136 mmol/L (136-145); THYROID STIMULATING HORMONE 2.45 uIU/mL (0.36-3.74); TRIGLYCERIDES 96 mg/dL (15-150); UREA NITROGEN, BLOOD 25 mg/dL (7-18); VALPROIC ACID 62 mcg/mL (50-100)
[2017-08-14] MEDS: NYSTATIN 15 GM POWDER BOTTLE TP SCH ×2 (09:12→16:26)
[2017-08-14 09:17] LABS: BAND NEUTROPHILS % (MANUAL) 1 % (1-5); EOSINOPHILS % (MANUAL) 1 % (1-6); LYMPHOCYTES % (MANUAL) 30 % (22-44); MONOCYTES % (MANUAL) 5 % (2-9); SEGMENTED NEUTROPHILS % 63 % (40-70)
[2017-08-14] MEDS: ChlorproMAZINE HCL 100 MG TABLET PO PRN (15:44)
[2017-08-14 16:19] VITALS: BP 101/61
[2017-08-14] MEDS: ZIPRASIDONE HCL 60 MG CAPSULE PO SCH (16:22)
[2017-08-14] MEDS: DiphenhydrAMINE HCL 25 MG CAPSULE PO SCH (20:04)
[2017-08-15 06:11] VITALS: BP 126/88
[2017-08-15] MEDS: OMEPRAZOLE 20 MG CAPSULE PO SCH (06:16)
[2017-08-15] MEDS: ZIPRASIDONE HCL 80 MG CAPSULE PO SCH (06:16)
[2017-08-15 08:53] VITALS: BP 141/87
[2017-08-15] MEDS: TRIHEXYPHENIDYL HCL 5 MG TABLET PO SCH ×2 (09:20→16:00)
[2017-08-15] MEDS: LISINOPRIL 20 MG TABLET PO SCH (09:20)
[2017-08-15] MEDS: HydrALAZINE HCL 25 MG TABLET PO SCH ×3 (09:20→16:00)
[2017-08-15] MEDS: LORazepam 2 MG TABLET PO PRN ×2 (09:20→18:09)
[2017-08-15] MEDS: CHOLECALCIFEROL (VIT D3) 1,000 UNITS TABLET PO SCH (09:20)
[2017-08-15] MEDS: VALPROIC ACID 250 MG/5 ML SYRUP UDCUP PO SCH ×2 (09:21→21:03)
[2017-08-15] MEDS: NYSTATIN 15 GM POWDER BOTTLE TP SCH ×2 (09:21→16:01)
[2017-08-15] MEDS: ZIPRASIDONE HCL 60 MG CAPSULE PO SCH (16:00)
[2017-08-15] MEDS: MAGNESIUM OXIDE 400 MG TABLET PO SCH (16:00)
[2017-08-15 16:17] VITALS: BP 109/71
[2017-08-15] MEDS: DiphenhydrAMINE HCL 25 MG CAPSULE PO SCH (21:03)
[2017-08-16] MEDS: OMEPRAZOLE 20 MG CAPSULE PO SCH (06:20)
[2017-08-16] MEDS: ZIPRASIDONE HCL 80 MG CAPSULE PO SCH (06:32)
[2017-08-16 07:17] VITALS: BP 116/76
[2017-08-16 09:00] VITALS: BP 111/64
[2017-08-16] MEDS: MAGNESIUM OXIDE 400 MG TABLET PO SCH ×2 (09:07→16:09)
[2017-08-16] MEDS: VALPROIC ACID 250 MG/5 ML SYRUP UDCUP PO SCH ×2 (09:08→20:34)
[2017-08-16] MEDS: HydrALAZINE HCL 25 MG TABLET PO SCH ×3 (09:08→16:09)
[2017-08-16] MEDS: OLANZapine 5 MG RAPDIS TABLET PO SCH (09:08)
[2017-08-16] MEDS: LISINOPRIL 20 MG TABLET PO SCH (09:08)
[2017-08-16] MEDS: TRIHEXYPHENIDYL HCL 5 MG TABLET PO SCH ×2 (09:08→16:09)
[2017-08-16] MEDS: CHOLECALCIFEROL (VIT D3) 1,000 UNITS TABLET PO SCH (09:08)
[2017-08-16] MEDS: NYSTATIN 15 GM POWDER BOTTLE TP SCH ×2 (09:19→16:10)
[2017-08-16 16:01] VITALS: BP 123/89
[2017-08-16] MEDS: LORazepam 2 MG TABLET PO PRN (16:09)
[2017-08-16] MEDS: ZIPRASIDONE HCL 60 MG CAPSULE PO SCH (16:10)
[2017-08-16] MEDS: DiphenhydrAMINE HCL 25 MG CAPSULE PO SCH (20:34)
[2017-08-17] MEDS: ZIPRASIDONE HCL 80 MG CAPSULE PO SCH (06:33)
[2017-08-17] MEDS: OMEPRAZOLE 20 MG CAPSULE PO SCH (06:33)
[2017-08-17 06:41] VITALS: BP 120/82
[2017-08-17 08:05] VITALS: BP 140/84
[2017-08-17] MEDS: CHOLECALCIFEROL (VIT D3) 1,000 UNITS TABLET PO SCH (08:24)
[2017-08-17] MEDS: HydrALAZINE HCL 25 MG TABLET PO SCH ×3 (08:25→17:11)
[2017-08-17] MEDS: TRIHEXYPHENIDYL HCL 5 MG TABLET PO SCH ×2 (08:25→17:11)
[2017-08-17] MEDS: VALPROIC ACID 250 MG/5 ML SYRUP UDCUP PO SCH ×2 (08:25→20:29)
[2017-08-17] MEDS: MAGNESIUM OXIDE 400 MG TABLET PO SCH ×2 (08:25→17:11)
[2017-08-17] MEDS: OLANZapine 5 MG RAPDIS TABLET PO SCH (08:25)
[2017-08-17] MEDS: LISINOPRIL 20 MG TABLET PO SCH (08:25)
[2017-08-17] MEDS: NYSTATIN 15 GM POWDER BOTTLE TP SCH ×2 (09:11→17:26)
[2017-08-17 16:06] VITALS: BP 109/68
[2017-08-17] MEDS: LORazepam 2 MG TABLET PO PRN (16:29)
[2017-08-17] MEDS: ChlorproMAZINE HCL 100 MG TABLET PO PRN (16:29)
[2017-08-17] MEDS: ZIPRASIDONE HCL 60 MG CAPSULE PO SCH (17:12)
[2017-08-17] MEDS: DiphenhydrAMINE HCL 25 MG CAPSULE PO SCH (20:29)
[2017-08-18 04:00] VITALS: BP 120/76
[2017-08-18] MEDS: ZIPRASIDONE HCL 80 MG CAPSULE PO SCH (06:35)
[2017-08-18] MEDS: OMEPRAZOLE 20 MG CAPSULE PO SCH (06:35)
[2017-08-18 07:46] LABS: BASOPHILS % (AUTO) 0.9 % (0.0-2.0); EOSINOPHILS % (AUTO) 2.4 % (1.0-6.0); HEMATOCRIT 33.4 % (36-46); HEMOGLOBIN 11.4 g/dL (12.0-16.0); LYMPHOCYTES # (AUTO) 1.1 K/uL (1.0-4.8); LYMPHOCYTES % (AUTO) 31.9 % (22.0-44.0); MEAN CORPUSCULAR HEMOGLOBIN 33.2 pg (26.0-34.0); MEAN CORPUSCULAR HGB CONC 34.2 G/dL (31.0-37.0); MEAN CORPUSCULAR VOLUME 97 fL (80-100); MONOCYTES # (AUTO) 0.5 K/uL (0.1-1.0); MONOCYTES % (AUTO) 13.4 % (2.0-9.0); NEUTROPHILS # (AUTO) 1.8 K/uL (1.8-7.7); NEUTROPHILS % (AUTO) 51.4 % (40.0-70.0); PLATELET COUNT (AUTO) 191 K/uL (150-450); RED BLOOD CELL COUNT(AUTO) 3.44 MIL/uL (4.00-5.20); RED CELL DISTRIBUTION WIDTH 14.2 % (11.5-14.5)
[2017-08-18 08:24] LABS: ANION GAP 6 mmol/L (8-16); CALCIUM, TOTAL 9.3 mg/dL (8.8-10.5); CARBON DIOXIDE 32 mmol/L (22-29); CHLORIDE 102 mmol/L (98-107); CREATININE 0.87 mg/dL (0.60-1.30); GLOMERULAR FILTR. RATE CALC > 60 mL/min (>60); GLUCOSE,RANDOM 93 mg/dL (70-110); POTASSIUM 5.2 mmol/L (3.5-5.1); SODIUM SERUM 140 mmol/L (136-145); UREA NITROGEN, BLOOD 24 mg/dL (7-18)
[2017-08-18] MEDS: MAGNESIUM OXIDE 400 MG TABLET PO SCH ×2 (08:24→17:22)
[2017-08-18] MEDS: HydrALAZINE HCL 25 MG TABLET PO SCH ×3 (08:24→17:22)
[2017-08-18] MEDS: LISINOPRIL 20 MG TABLET PO SCH (08:24)
[2017-08-18] MEDS: CHOLECALCIFEROL (VIT D3) 1,000 UNITS TABLET PO SCH (08:24)
[2017-08-18] MEDS: TRIHEXYPHENIDYL HCL 5 MG TABLET PO SCH ×2 (08:24→17:22)
[2017-08-18] MEDS: VALPROIC ACID 250 MG/5 ML SYRUP UDCUP PO SCH ×2 (08:25→20:33)
[2017-08-18] MEDS: OLANZapine 5 MG RAPDIS TABLET PO SCH (08:25)
[2017-08-18] MEDS: NYSTATIN 15 GM POWDER BOTTLE TP SCH ×2 (09:35→17:22)
[2017-08-18 11:19] VITALS: BP 144/94
[2017-08-18 16:42] VITALS: BP 139/95
[2017-08-18] MEDS: LORazepam 2 MG TABLET PO PRN (16:42)
[2017-08-18] MEDS: ChlorproMAZINE HCL 100 MG TABLET PO PRN (16:42)
[2017-08-18] MEDS: ZIPRASIDONE HCL 60 MG CAPSULE PO SCH (17:00)
[2017-08-18] MEDS: DiphenhydrAMINE HCL 25 MG CAPSULE PO SCH (20:33)
[2017-08-19] MEDS: ZIPRASIDONE HCL 80 MG CAPSULE PO SCH (06:21)
[2017-08-19] MEDS: OMEPRAZOLE 20 MG CAPSULE PO SCH (06:21)
[2017-08-19 07:18] VITALS: BP 135/72
[2017-08-19 08:00] VITALS: BP 144/88
[2017-08-19] MEDS: TRIHEXYPHENIDYL HCL 5 MG TABLET PO SCH ×2 (08:13→16:26)
[2017-08-19] MEDS: HydrALAZINE HCL 25 MG TABLET PO SCH ×3 (08:13→16:27)
[2017-08-19] MEDS: NYSTATIN 15 GM POWDER BOTTLE TP SCH ×2 (08:13→16:27)
[2017-08-19] MEDS: OLANZapine 5 MG RAPDIS TABLET PO SCH (08:13)
[2017-08-19] MEDS: LISINOPRIL 20 MG TABLET PO SCH (08:13)
[2017-08-19] MEDS: VALPROIC ACID 250 MG/5 ML SYRUP UDCUP PO SCH ×2 (08:13→20:33)
[2017-08-19] MEDS: CHOLECALCIFEROL (VIT D3) 1,000 UNITS TABLET PO SCH (08:13)
[2017-08-19] MEDS: MAGNESIUM OXIDE 400 MG TABLET PO SCH ×2 (08:13→16:27)
[2017-08-19] MEDS: LORazepam 2 MG TABLET PO PRN ×2 (08:14→16:08)
[2017-08-19 09:02] LABS: % IRON SATURATION 40.3 % (22-44)
[2017-08-19 09:34] LABS: CALCIUM, TOTAL 9.2 mg/dL (8.8-10.5); POTASSIUM 5.1 mmol/L (3.5-5.1)
[2017-08-19] MEDS: ChlorproMAZINE HCL 100 MG TABLET PO PRN (13:57)
[2017-08-19 16:08] VITALS: BP 135/85
[2017-08-19] MEDS: ZIPRASIDONE HCL 60 MG CAPSULE PO SCH (16:27)
[2017-08-19] MEDS: DiphenhydrAMINE HCL 25 MG CAPSULE PO SCH (20:32)
[2017-08-20] MEDS: ZIPRASIDONE HCL 80 MG CAPSULE PO SCH (06:26)
[2017-08-20] MEDS: OMEPRAZOLE 20 MG CAPSULE PO SCH (06:26)
[2017-08-20 06:56] VITALS: BP 114/90
[2017-08-20] MEDS ORDERED: MULTIVITAMINS, THERAPEUTIC TABLET PO SCH (07:30)
[2017-08-20 08:00] VITALS: BP 132/65
[2017-08-20] MEDS: MAGNESIUM OXIDE 400 MG TABLET PO SCH ×2 (08:54→16:24)
[2017-08-20] MEDS: TRIHEXYPHENIDYL HCL 5 MG TABLET PO SCH ×2 (08:54→16:24)
[2017-08-20] MEDS: LISINOPRIL 20 MG TABLET PO SCH (08:54)
[2017-08-20] MEDS: CHOLECALCIFEROL (VIT D3) 1,000 UNITS TABLET PO SCH (08:54)
[2017-08-20] MEDS: NYSTATIN 15 GM POWDER BOTTLE TP SCH ×2 (08:54→16:24)
[2017-08-20] MEDS: OLANZapine 5 MG RAPDIS TABLET PO SCH (08:55)
[2017-08-20] MEDS: HydrALAZINE HCL 25 MG TABLET PO SCH ×3 (08:55→16:24)
[2017-08-20] MEDS: VALPROIC ACID 250 MG/5 ML SYRUP UDCUP PO SCH ×2 (08:55→20:33)
[2017-08-20] MEDS: LORazepam 2 MG TABLET PO PRN ×2 (08:58→16:25)
[2017-08-20] MEDS: ChlorproMAZINE HCL 100 MG TABLET PO PRN (12:20)
[2017-08-20] MEDS: ZIPRASIDONE HCL 60 MG CAPSULE PO SCH (16:24)
[2017-08-20] MEDS: DiphenhydrAMINE HCL 25 MG CAPSULE PO SCH (20:33)
[2017-08-21] MEDS: OMEPRAZOLE 20 MG CAPSULE PO SCH (06:31)
[2017-08-21] MEDS: ZIPRASIDONE HCL 80 MG CAPSULE PO SCH (06:31)
[2017-08-21 07:16] VITALS: BP 130/85
[2017-08-21 08:27] VITALS: BP 136/68
[2017-08-21] MEDS: VALPROIC ACID 250 MG/5 ML SYRUP UDCUP PO SCH ×2 (08:54→20:19)
[2017-08-21] MEDS: MAGNESIUM OXIDE 400 MG TABLET PO SCH ×2 (08:54→16:10)
[2017-08-21] MEDS: TRIHEXYPHENIDYL HCL 5 MG TABLET PO SCH ×2 (08:54→16:10)
[2017-08-21] MEDS: LORazepam 2 MG TABLET PO PRN ×2 (08:55→16:42)
[2017-08-21] MEDS: OLANZapine 5 MG RAPDIS TABLET PO SCH (08:55)
[2017-08-21] MEDS: MULTIVITAMINS, THERAPEUTIC TABLET PO SCH (08:55)
[2017-08-21] MEDS: CHOLECALCIFEROL (VIT D3) 1,000 UNITS TABLET PO SCH (08:55)
[2017-08-21] MEDS: LISINOPRIL 20 MG TABLET PO SCH (08:55)
[2017-08-21] MEDS: NYSTATIN 15 GM POWDER BOTTLE TP SCH ×2 (08:55→16:14)
[2017-08-21] MEDS: HydrALAZINE HCL 25 MG TABLET PO SCH ×3 (08:55→16:10)
[2017-08-21 16:05] VITALS: BP 109/66
[2017-08-21] MEDS: ZIPRASIDONE HCL 60 MG CAPSULE PO SCH (16:10)
[2017-08-21] MEDS: DiphenhydrAMINE HCL 25 MG CAPSULE PO SCH (20:19)
[2017-08-22 06:02] VITALS: BP 130/82
[2017-08-22] MEDS: OMEPRAZOLE 20 MG CAPSULE PO SCH (06:20)
[2017-08-22] MEDS: ZIPRASIDONE HCL 80 MG CAPSULE PO SCH (06:20)
[2017-08-22 08:15] LABS: HEMATOCRIT 34.7 % (36-46); HEMOGLOBIN 11.9 g/dL (12.0-16.0); MEAN CORPUSCULAR HEMOGLOBIN 33.1 pg (26.0-34.0); MEAN CORPUSCULAR HGB CONC 34.3 G/dL (31.0-37.0); MEAN CORPUSCULAR VOLUME 97 fL (80-100); PLATELET COUNT (AUTO) 220 K/uL (150-450); RED CELL DISTRIBUTION WIDTH 13.6 % (11.5-14.5)
[2017-08-22 08:19] VITALS: BP 137/73
[2017-08-22] MEDS: LISINOPRIL 20 MG TABLET PO SCH (08:34)
[2017-08-22] MEDS: MULTIVITAMINS, THERAPEUTIC TABLET PO SCH (08:34)
[2017-08-22] MEDS: TRIHEXYPHENIDYL HCL 5 MG TABLET PO SCH ×2 (08:35→17:02)
[2017-08-22] MEDS: LORazepam 2 MG TABLET PO PRN ×2 (08:35→16:18)
[2017-08-22] MEDS: VALPROIC ACID 250 MG/5 ML SYRUP UDCUP PO SCH ×2 (08:35→20:48)
[2017-08-22] MEDS: CHOLECALCIFEROL (VIT D3) 1,000 UNITS TABLET PO SCH (08:35)
[2017-08-22] MEDS: OLANZapine 5 MG RAPDIS TABLET PO SCH (08:35)
[2017-08-22] MEDS: MAGNESIUM OXIDE 400 MG TABLET PO SCH ×2 (08:35→17:02)
[2017-08-22 08:52] LABS: CALCIUM, TOTAL 9.4 mg/dL (8.8-10.5); CREATININE 1.2 mg/dL (0.60-1.30); MAGNESIUM 1.8 mg/dL (1.80-2.40); PHOSPHORUS 4.6 mg/dL (2.5-4.9); POTASSIUM 5.1 mmol/L (3.5-5.1)
[2017-08-22] MEDS: NYSTATIN 15 GM POWDER BOTTLE TP SCH ×2 (09:02→16:19)
[2017-08-22] MEDS: HydrALAZINE HCL 25 MG TABLET PO SCH ×3 (09:02→17:02)
[2017-08-22 09:38] LABS: BAND NEUTROPHILS % (MANUAL) 1 % (1-5); EOSINOPHILS % (MANUAL) 2 % (1-6); LYMPHOCYTES % (MANUAL) 30 % (22-44); MONOCYTES % (MANUAL) 9 % (2-9); SEGMENTED NEUTROPHILS % 58 % (40-70)
[2017-08-22] MEDS: ChlorproMAZINE HCL 100 MG TABLET PO PRN ×2 (11:58→16:18)
[2017-08-22 16:09] VITALS: BP 113/64
[2017-08-22] MEDS: ZIPRASIDONE HCL 60 MG CAPSULE PO SCH (17:03)
[2017-08-22] MEDS: DiphenhydrAMINE HCL 25 MG CAPSULE PO SCH (20:48)
[2017-08-23 04:42] VITALS: BP 120/70
[2017-08-23] MEDS: OMEPRAZOLE 20 MG CAPSULE PO SCH (06:33)
[2017-08-23] MEDS: ZIPRASIDONE HCL 80 MG CAPSULE PO SCH (06:34)
[2017-08-23] MEDS: MULTIVITAMINS, THERAPEUTIC TABLET PO SCH (06:34)
[2017-08-23] MEDS: NYSTATIN 15 GM POWDER BOTTLE TP SCH ×2 (08:17→17:14)
[2017-08-23] MEDS: TRIHEXYPHENIDYL HCL 5 MG TABLET PO SCH ×2 (08:17→17:13)
[2017-08-23] MEDS: LISINOPRIL 20 MG TABLET PO SCH (08:17)
[2017-08-23] MEDS: LORazepam 2 MG TABLET PO PRN ×2 (08:18→16:36)
[2017-08-23] MEDS: HydrALAZINE HCL 25 MG TABLET PO SCH ×3 (08:18→17:13)
[2017-08-23] MEDS: OLANZapine 5 MG RAPDIS TABLET PO SCH (08:18)
[2017-08-23] MEDS: VALPROIC ACID 250 MG/5 ML SYRUP UDCUP PO SCH ×2 (08:18→20:28)
[2017-08-23] MEDS: CHOLECALCIFEROL (VIT D3) 1,000 UNITS TABLET PO SCH (08:18)
[2017-08-23 08:35] VITALS: BP 146/102
[2017-08-23] MEDS: ChlorproMAZINE HCL 100 MG TABLET PO PRN ×2 (12:33→16:36)
[2017-08-23 16:15] VITALS: BP 114/76
[2017-08-23] MEDS: ZIPRASIDONE HCL 60 MG CAPSULE PO SCH (17:14)
[2017-08-23] MEDS: DiphenhydrAMINE HCL 25 MG CAPSULE PO SCH (20:27)
[2017-08-24] MEDS: OMEPRAZOLE 20 MG CAPSULE PO SCH (06:03)
[2017-08-24] MEDS: MULTIVITAMINS, THERAPEUTIC TABLET PO SCH (06:32)
[2017-08-24 06:40] VITALS: BP 134/85
[2017-08-24 08:19] LABS: HEMATOCRIT 31.8 % (36-46); HEMOGLOBIN 10.9 g/dL (12.0-16.0); MEAN CORPUSCULAR HEMOGLOBIN 33.2 pg (26.0-34.0); MEAN CORPUSCULAR HGB CONC 34.4 G/dL (31.0-37.0); MEAN CORPUSCULAR VOLUME 97 fL (80-100); PLATELET COUNT (AUTO) 185 K/uL (150-450); RED CELL DISTRIBUTION WIDTH 14.1 % (11.5-14.5)
[2017-08-24 08:31] LABS: ANION GAP 2 mmol/L (8-16); CALCIUM, TOTAL 9.1 mg/dL (8.8-10.5); CARBON DIOXIDE 33 mmol/L (22-29); CHLORIDE 97 mmol/L (98-107); CREATININE 0.89 mg/dL (0.60-1.30); GLOMERULAR FILTR. RATE CALC > 60 mL/min (>60); GLUCOSE,RANDOM 90 mg/dL (70-110); PHOSPHORUS 4.3 mg/dL (2.5-4.9); POTASSIUM 4.6 mmol/L (3.5-5.1); SODIUM SERUM 132 mmol/L (136-145); UREA NITROGEN, BLOOD 24 mg/dL (7-18)
[2017-08-24 08:43] VITALS: BP 138/87
[2017-08-24] MEDS: HydrALAZINE HCL 25 MG TABLET PO SCH ×3 (08:55→16:55)
[2017-08-24] MEDS: TRIHEXYPHENIDYL HCL 5 MG TABLET PO SCH ×2 (08:55→16:13)
[2017-08-24] MEDS: LISINOPRIL 20 MG TABLET PO SCH (08:55)
[2017-08-24] MEDS: OLANZapine 5 MG RAPDIS TABLET PO SCH ×2 (08:55→20:35)
[2017-08-24] MEDS: LORazepam 2 MG TABLET PO PRN ×2 (08:55→16:10)
[2017-08-24] MEDS: NYSTATIN 15 GM POWDER BOTTLE TP SCH ×2 (08:55→16:13)
[2017-08-24] MEDS: CHOLECALCIFEROL (VIT D3) 1,000 UNITS TABLET PO SCH (08:55)
[2017-08-24] MEDS: VALPROIC ACID 250 MG/5 ML SYRUP UDCUP PO SCH ×2 (08:55→20:35)
[2017-08-24 10:12] LABS: BAND NEUTROPHILS % (MANUAL) 1 % (1-5); EOSINOPHILS % (MANUAL) 1 % (1-6); LYMPHOCYTES % (MANUAL) 26 % (22-44); MONOCYTES % (MANUAL) 7 % (2-9); SEGMENTED NEUTROPHILS % 65 % (40-70)
[2017-08-24] MEDS: ChlorproMAZINE HCL 100 MG TABLET PO PRN ×2 (12:38→17:44)
[2017-08-24 16:14] VITALS: BP 106/63
[2017-08-24] MEDS: DiphenhydrAMINE HCL 25 MG CAPSULE PO SCH (20:35)
[2017-08-25] MEDS: OMEPRAZOLE 20 MG CAPSULE PO SCH (06:30)
[2017-08-25 07:05] VITALS: BP 140/86
[2017-08-25 08:21] VITALS: BP 104/86
[2017-08-25] MEDS: LISINOPRIL 20 MG TABLET PO SCH (09:00)
[2017-08-25] MEDS: NYSTATIN 15 GM POWDER BOTTLE TP SCH ×2 (09:00→16:11)
[2017-08-25] MEDS: HydrALAZINE HCL 25 MG TABLET PO SCH ×3 (09:00→16:11)
[2017-08-25] MEDS: VALPROIC ACID 250 MG/5 ML SYRUP UDCUP PO SCH ×2 (09:10→20:14)
[2017-08-25] MEDS: CHOLECALCIFEROL (VIT D3) 1,000 UNITS TABLET PO SCH (09:10)
[2017-08-25] MEDS: OLANZapine 5 MG RAPDIS TABLET PO SCH ×2 (09:10→20:13)
[2017-08-25] MEDS: SODIUM CHLORIDE 1 GM TABLET PO SCH ×3 (09:10→16:11)
[2017-08-25] MEDS: TRIHEXYPHENIDYL HCL 5 MG TABLET PO SCH ×2 (09:10→16:11)
[2017-08-25] MEDS: MULTIVITAMINS WITH IRON TABLET PO SCH (09:10)
[2017-08-25 10:12] LABS: ANION GAP 2 mmol/L (8-16); CARBON DIOXIDE 33 mmol/L (22-29); CHLORIDE 97 mmol/L (98-107); CREATININE 0.84 mg/dL (0.60-1.30); GLOMERULAR FILTR. RATE CALC > 60 mL/min (>60); GLUCOSE,RANDOM 100 mg/dL (70-110); POTASSIUM 4.7 mmol/L (3.5-5.1); SODIUM SERUM 132 mmol/L (136-145); UREA NITROGEN, BLOOD 26 mg/dL (7-18); VALPROIC ACID 61 mcg/mL (50-100)
[2017-08-25 13:30] VITALS: BP 108/69
[2017-08-25 16:09] VITALS: BP 134/65
[2017-08-25] MEDS: DiphenhydrAMINE HCL 25 MG CAPSULE PO SCH (20:13)
[2017-08-26] MEDS: OMEPRAZOLE 20 MG CAPSULE PO SCH (05:41)
[2017-08-26] MEDS: MULTIVITAMINS WITH IRON TABLET PO SCH (07:02)
[2017-08-26 08:10] VITALS: BP 160/78
[2017-08-26] MEDS: HydrALAZINE HCL 25 MG TABLET PO SCH ×3 (08:39→16:10)
[2017-08-26] MEDS: LISINOPRIL 20 MG TABLET PO SCH (08:39)
[2017-08-26] MEDS: TRIHEXYPHENIDYL HCL 5 MG TABLET PO SCH ×2 (08:39→16:10)
[2017-08-26] MEDS: CHOLECALCIFEROL (VIT D3) 1,000 UNITS TABLET PO SCH (08:39)
[2017-08-26] MEDS: OLANZapine 5 MG RAPDIS TABLET PO SCH ×2 (08:40→20:21)
[2017-08-26] MEDS: NYSTATIN 15 GM POWDER BOTTLE TP SCH ×2 (08:40→16:10)
[2017-08-26] MEDS: VALPROIC ACID 250 MG/5 ML SYRUP UDCUP PO SCH ×2 (08:42→20:22)
[2017-08-26 08:51] LABS: POTASSIUM 4.4 mmol/L (3.5-5.1)
[2017-08-26 14:35] VITALS: BP 140/74
[2017-08-26] MEDS: ChlorproMAZINE HCL 100 MG TABLET PO PRN (16:10)
[2017-08-26 16:24] VITALS: BP 124/77
[2017-08-26] MEDS: DiphenhydrAMINE HCL 25 MG CAPSULE PO SCH (20:21)
[2017-08-27 05:24] VITALS: BP 130/74
[2017-08-27] MEDS: OMEPRAZOLE 20 MG CAPSULE PO SCH (06:17)
[2017-08-27] MEDS: MULTIVITAMINS WITH IRON TABLET PO SCH (06:39)
[2017-08-27] MEDS: OLANZapine 5 MG RAPDIS TABLET PO SCH ×3 (08:15→20:49)
[2017-08-27] MEDS: LISINOPRIL 20 MG TABLET PO SCH (08:16)
[2017-08-27] MEDS: HydrALAZINE HCL 25 MG TABLET PO SCH ×3 (08:16→17:00)
[2017-08-27] MEDS: VALPROIC ACID 250 MG/5 ML SYRUP UDCUP PO SCH ×2 (08:16→20:50)
[2017-08-27] MEDS: TRIHEXYPHENIDYL HCL 5 MG TABLET PO SCH ×2 (08:16→17:00)
[2017-08-27] MEDS: NYSTATIN 15 GM POWDER BOTTLE TP SCH ×2 (08:16→17:22)
[2017-08-27] MEDS: CHOLECALCIFEROL (VIT D3) 1,000 UNITS TABLET PO SCH (08:16)
[2017-08-27 08:19] VITALS: BP 141/88
[2017-08-27 16:00] VITALS: BP 132/75
[2017-08-27] MEDS: ChlorproMAZINE HCL 100 MG TABLET PO PRN (17:00)
[2017-08-27] MEDS: LORazepam 2 MG TABLET PO PRN (17:23)
[2017-08-27] MEDS: DiphenhydrAMINE HCL 25 MG CAPSULE PO SCH (20:49)
[2017-08-28 05:41] VITALS: BP 127/79
[2017-08-28] MEDS: OMEPRAZOLE 20 MG CAPSULE PO SCH (05:44)
[2017-08-28] MEDS: MULTIVITAMINS WITH IRON TABLET PO SCH (06:37)
[2017-08-28 08:42] VITALS: BP 129/80
[2017-08-28] MEDS: LORazepam 2 MG TABLET PO PRN ×2 (09:07→16:03)
[2017-08-28] MEDS: LISINOPRIL 20 MG TABLET PO SCH (09:07)
[2017-08-28] MEDS: TRIHEXYPHENIDYL HCL 5 MG TABLET PO SCH ×2 (09:07→16:02)
[2017-08-28] MEDS: HydrALAZINE HCL 25 MG TABLET PO SCH ×3 (09:07→16:02)
[2017-08-28] MEDS: NYSTATIN 15 GM POWDER BOTTLE TP SCH ×2 (09:07→16:05)
[2017-08-28] MEDS: OLANZapine 5 MG RAPDIS TABLET PO SCH ×3 (09:07→20:32)
[2017-08-28] MEDS: VALPROIC ACID 250 MG/5 ML SYRUP UDCUP PO SCH ×2 (09:07→20:33)
[2017-08-28] MEDS: CHOLECALCIFEROL (VIT D3) 1,000 UNITS TABLET PO SCH (09:07)
[2017-08-28] MEDS: ChlorproMAZINE HCL 100 MG TABLET PO PRN (09:35)
[2017-08-28 17:28] VITALS: BP 112/64
[2017-08-28] MEDS: DiphenhydrAMINE HCL 25 MG CAPSULE PO SCH (20:32)
[2017-08-29] MEDS: OMEPRAZOLE 20 MG CAPSULE PO SCH (06:57)
[2017-08-29] MEDS: MULTIVITAMINS WITH IRON TABLET PO SCH (06:57)
[2017-08-29] MEDS: HydrALAZINE HCL 25 MG TABLET PO SCH ×3 (07:51→17:22)
[2017-08-29] MEDS: OLANZapine 5 MG RAPDIS TABLET PO SCH ×3 (07:51→20:15)
[2017-08-29] MEDS: TRIHEXYPHENIDYL HCL 5 MG TABLET PO SCH ×2 (07:51→17:22)
[2017-08-29] MEDS: CHOLECALCIFEROL (VIT D3) 1,000 UNITS TABLET PO SCH (07:52)
[2017-08-29] MEDS: VALPROIC ACID 250 MG/5 ML SYRUP UDCUP PO SCH ×2 (07:52→20:15)
[2017-08-29] MEDS: LISINOPRIL 20 MG TABLET PO SCH (07:52)
[2017-08-29 08:32] VITALS: BP 138/93
[2017-08-29] MEDS: NYSTATIN 15 GM POWDER BOTTLE TP SCH ×2 (09:07→17:23)
[2017-08-29] MEDS: LORazepam 2 MG TABLET PO PRN (12:37)
[2017-08-29 16:25] VITALS: BP 120/61
[2017-08-29] MEDS: DiphenhydrAMINE HCL 25 MG CAPSULE PO SCH (20:14)
[2017-08-30] MEDS: MULTIVITAMINS WITH IRON TABLET PO SCH (06:42)
[2017-08-30] MEDS: OMEPRAZOLE 20 MG CAPSULE PO SCH (06:42)
[2017-08-30] MEDS: HydrALAZINE HCL 25 MG TABLET PO SCH ×3 (08:05→17:07)
[2017-08-30] MEDS: LISINOPRIL 20 MG TABLET PO SCH (08:05)
[2017-08-30] MEDS: TRIHEXYPHENIDYL HCL 5 MG TABLET PO SCH ×2 (08:06→17:07)
[2017-08-30] MEDS: CHOLECALCIFEROL (VIT D3) 1,000 UNITS TABLET PO SCH (08:06)
[2017-08-30] MEDS: OLANZapine 5 MG RAPDIS TABLET PO SCH ×3 (08:06→20:47)
[2017-08-30] MEDS: VALPROIC ACID 250 MG/5 ML SYRUP UDCUP PO SCH ×2 (08:07→20:47)
[2017-08-30 08:23] VITALS: BP 105/58
[2017-08-30] MEDS: LORazepam 2 MG TABLET PO PRN ×2 (09:14→17:07)
[2017-08-30] MEDS: NYSTATIN 15 GM POWDER BOTTLE TP SCH ×2 (10:54→17:08)
[2017-08-30 16:15] VITALS: BP 110/70
[2017-08-30] MEDS: DiphenhydrAMINE HCL 25 MG CAPSULE PO SCH (20:47)
[2017-08-31 02:28] VITALS: BP 117/68
[2017-08-31] MEDS: OMEPRAZOLE 20 MG CAPSULE PO SCH (06:31)
[2017-08-31] MEDS: MULTIVITAMINS WITH IRON TABLET PO SCH (06:32)
[2017-08-31 08:40] VITALS: BP 122/70
[2017-08-31] MEDS: VALPROIC ACID 250 MG/5 ML SYRUP UDCUP PO SCH ×2 (09:41→20:09)
[2017-08-31] MEDS: TRIHEXYPHENIDYL HCL 5 MG TABLET PO SCH ×2 (09:41→17:01)
[2017-08-31] MEDS: CHOLECALCIFEROL (VIT D3) 1,000 UNITS TABLET PO SCH (09:41)
[2017-08-31] MEDS: OLANZapine 5 MG RAPDIS TABLET PO SCH ×3 (09:42→20:09)
[2017-08-31] MEDS: HydrALAZINE HCL 25 MG TABLET PO SCH ×3 (09:42→17:01)
[2017-08-31] MEDS: LORazepam 2 MG TABLET PO PRN ×2 (09:42→16:11)
[2017-08-31] MEDS: LISINOPRIL 20 MG TABLET PO SCH (09:42)
[2017-08-31] MEDS: ChlorproMAZINE HCL 100 MG TABLET PO PRN ×2 (09:42→16:11)
[2017-08-31] MEDS: NYSTATIN 15 GM POWDER BOTTLE TP SCH ×2 (09:43→17:02)
[2017-08-31 16:23] VITALS: BP 110/73
[2017-08-31] MEDS: DiphenhydrAMINE HCL 25 MG CAPSULE PO SCH (20:09)
[2017-09-01 02:28] VITALS: BP 112/71
[2017-09-01] MEDS: MULTIVITAMINS WITH IRON TABLET PO SCH (06:43)
[2017-09-01] MEDS: OMEPRAZOLE 20 MG CAPSULE PO SCH (06:43)
[2017-09-01] MEDS: LISINOPRIL 20 MG TABLET PO SCH (08:11)
[2017-09-01] MEDS: CHOLECALCIFEROL (VIT D3) 1,000 UNITS TABLET PO SCH (08:11)
[2017-09-01] MEDS: TRIHEXYPHENIDYL HCL 5 MG TABLET PO SCH ×2 (08:11→16:31)
[2017-09-01] MEDS: HydrALAZINE HCL 25 MG TABLET PO SCH ×3 (08:11→16:31)
[2017-09-01] MEDS: LORazepam 2 MG TABLET PO PRN ×2 (08:11→16:30)
[2017-09-01 08:12] VITALS: BP 171/95
[2017-09-01] MEDS: NYSTATIN 15 GM POWDER BOTTLE TP SCH ×2 (08:12→16:31)
[2017-09-01] MEDS: VALPROIC ACID 250 MG/5 ML SYRUP UDCUP PO SCH ×2 (08:12→20:51)
[2017-09-01] MEDS: OLANZapine 5 MG RAPDIS TABLET PO SCH ×2 (08:12→16:31)
[2017-09-01 13:30] VITALS: BP 101/67
[2017-09-01] MEDS: ChlorproMAZINE HCL 100 MG TABLET PO PRN (13:37)
[2017-09-01 16:36] VITALS: BP 135/79
[2017-09-01] MEDS: DiphenhydrAMINE HCL 25 MG CAPSULE PO SCH (20:50)
[2017-09-01] MEDS: OLANZapine 5 MG TABLET PO SCH (20:50)
[2017-09-02 06:18] VITALS: BP 124/71
[2017-09-02] MEDS: OMEPRAZOLE 20 MG CAPSULE PO SCH (06:29)
[2017-09-02] MEDS: OLANZapine 5 MG TABLET PO SCH ×2 (06:29→20:17)
[2017-09-02] MEDS: TRIHEXYPHENIDYL HCL 5 MG TABLET PO SCH ×2 (06:29→16:27)
[2017-09-02] MEDS: MULTIVITAMINS WITH IRON TABLET PO SCH (06:30)
[2017-09-02] MEDS: VALPROIC ACID 250 MG/5 ML SYRUP UDCUP PO SCH ×2 (06:30→20:17)
[2017-09-02] MEDS: NYSTATIN 15 GM POWDER BOTTLE TP SCH ×2 (09:00→16:27)
[2017-09-02 09:26] VITALS: BP 158/75
[2017-09-02] MEDS: LISINOPRIL 20 MG TABLET PO SCH (09:44)
[2017-09-02] MEDS: HydrALAZINE HCL 25 MG TABLET PO SCH ×4 (09:45→17:41)
[2017-09-02] MEDS: ChlorproMAZINE HCL 100 MG TABLET PO PRN (09:45)
[2017-09-02] MEDS: CHOLECALCIFEROL (VIT D3) 1,000 UNITS TABLET PO SCH (09:45)
[2017-09-02] MEDS: LORazepam 2 MG TABLET PO PRN ×2 (09:45→17:09)
[2017-09-02 13:00] VITALS: BP 99/49
[2017-09-02 17:00] VITALS: BP 107/72
[2017-09-02] MEDS: DiphenhydrAMINE HCL 25 MG CAPSULE PO SCH (20:16)
[2017-09-03 03:52] VITALS: BP 134/82
[2017-09-03] MEDS: TRIHEXYPHENIDYL HCL 5 MG TABLET PO SCH ×2 (06:58→16:11)
[2017-09-03] MEDS: VALPROIC ACID 250 MG/5 ML SYRUP UDCUP PO SCH ×2 (06:59→21:01)
[2017-09-03] MEDS: OMEPRAZOLE 20 MG CAPSULE PO SCH (06:59)
[2017-09-03] MEDS: OLANZapine 5 MG TABLET PO SCH ×2 (06:59→21:02)
[2017-09-03] MEDS: MULTIVITAMINS WITH IRON TABLET PO SCH (07:12)
[2017-09-03 08:04] VITALS: BP 151/98
[2017-09-03] MEDS: NYSTATIN 15 GM POWDER BOTTLE TP SCH ×2 (08:05→16:11)
[2017-09-03] MEDS: ChlorproMAZINE HCL 100 MG TABLET PO PRN ×2 (08:05→17:39)
[2017-09-03] MEDS: HydrALAZINE HCL 25 MG TABLET PO SCH ×3 (08:06→16:11)
[2017-09-03] MEDS: CHOLECALCIFEROL (VIT D3) 1,000 UNITS TABLET PO SCH (08:06)
[2017-09-03] MEDS: LISINOPRIL 20 MG TABLET PO SCH (08:08)
[2017-09-03] MEDS: LORazepam 2 MG TABLET PO PRN ×2 (10:44→16:11)
[2017-09-03 13:20] VITALS: BP 112/63
[2017-09-03 16:07] VITALS: BP 112/74
[2017-09-03] MEDS: DiphenhydrAMINE HCL 25 MG CAPSULE PO SCH (21:02)
[2017-09-04] MEDS: MULTIVITAMINS WITH IRON TABLET PO SCH (06:33)
[2017-09-04] MEDS: TRIHEXYPHENIDYL HCL 5 MG TABLET PO SCH ×2 (06:33→16:30)
[2017-09-04] MEDS: OMEPRAZOLE 20 MG CAPSULE PO SCH (06:33)
[2017-09-04] MEDS: OLANZapine 5 MG TABLET PO SCH ×2 (06:34→20:15)
[2017-09-04] MEDS: VALPROIC ACID 250 MG/5 ML SYRUP UDCUP PO SCH ×2 (06:34→20:15)
[2017-09-04 07:10] VITALS: BP 120/73
[2017-09-04] MEDS: CHOLECALCIFEROL (VIT D3) 1,000 UNITS TABLET PO SCH (08:28)
[2017-09-04] MEDS: HydrALAZINE HCL 25 MG TABLET PO SCH ×3 (08:28→16:30)
[2017-09-04] MEDS: ChlorproMAZINE HCL 100 MG TABLET PO PRN ×2 (08:28→12:43)
[2017-09-04] MEDS: LORazepam 2 MG TABLET PO PRN ×2 (08:28→12:44)
[2017-09-04] MEDS: LISINOPRIL 20 MG TABLET PO SCH (08:28)
[2017-09-04] MEDS: NYSTATIN 15 GM POWDER BOTTLE TP SCH ×2 (08:29→16:30)
[2017-09-04 08:46] VITALS: BP 148/74
[2017-09-04 16:00] VITALS: BP 112/65
[2017-09-04] MEDS: DiphenhydrAMINE HCL 25 MG CAPSULE PO SCH (20:15)
[2017-09-05 04:57] VITALS: BP 106/76
[2017-09-05] MEDS: MULTIVITAMINS WITH IRON TABLET PO SCH (06:36)
[2017-09-05] MEDS: TRIHEXYPHENIDYL HCL 5 MG TABLET PO SCH ×2 (06:36→16:06)
[2017-09-05] MEDS: OMEPRAZOLE 20 MG CAPSULE PO SCH (06:36)
[2017-09-05] MEDS: OLANZapine 5 MG TABLET PO SCH ×2 (06:36→20:11)
[2017-09-05] MEDS: VALPROIC ACID 250 MG/5 ML SYRUP UDCUP PO SCH ×2 (06:37→20:12)
[2017-09-05] MEDS: LISINOPRIL 20 MG TABLET PO SCH (08:05)
[2017-09-05] MEDS: CHOLECALCIFEROL (VIT D3) 1,000 UNITS TABLET PO SCH (08:05)
[2017-09-05] MEDS: NYSTATIN 15 GM POWDER BOTTLE TP SCH ×2 (08:05→17:03)
[2017-09-05] MEDS: HydrALAZINE HCL 25 MG TABLET PO SCH ×3 (08:05→16:06)
[2017-09-05] MEDS: LORazepam 2 MG TABLET PO PRN ×2 (08:05→16:06)
[2017-09-05 08:30] VITALS: BP 127/77
[2017-09-05] MEDS: ChlorproMAZINE HCL 100 MG TABLET PO PRN ×2 (12:08→16:08)
[2017-09-05 16:35] VITALS: BP 113/69
[2017-09-05] MEDS: DiphenhydrAMINE HCL 25 MG CAPSULE PO SCH (20:11)
[2017-09-06 06:17] VITALS: BP 132/85
[2017-09-06] MEDS: OMEPRAZOLE 20 MG CAPSULE PO SCH (06:31)
[2017-09-06] MEDS: MULTIVITAMINS WITH IRON TABLET PO SCH (06:32)
[2017-09-06] MEDS: OLANZapine 5 MG TABLET PO SCH ×2 (06:32→20:07)
[2017-09-06] MEDS: TRIHEXYPHENIDYL HCL 5 MG TABLET PO SCH ×2 (06:32→16:10)
[2017-09-06] MEDS: VALPROIC ACID 250 MG/5 ML SYRUP UDCUP PO SCH ×2 (06:32→20:07)
[2017-09-06 08:23] VITALS: BP 125/68
[2017-09-06] MEDS: NYSTATIN 15 GM POWDER BOTTLE TP SCH ×2 (08:41→16:12)
[2017-09-06] MEDS: LORazepam 2 MG TABLET PO PRN ×2 (08:41→16:10)
[2017-09-06] MEDS: LISINOPRIL 20 MG TABLET PO SCH (08:41)
[2017-09-06] MEDS: CHOLECALCIFEROL (VIT D3) 1,000 UNITS TABLET PO SCH (08:41)
[2017-09-06] MEDS: HydrALAZINE HCL 25 MG TABLET PO SCH ×3 (08:41→16:10)
[2017-09-06] MEDS: ChlorproMAZINE HCL 100 MG TABLET PO PRN ×2 (09:52→16:10)
[2017-09-06 16:05] VITALS: BP 109/71
[2017-09-06] MEDS: DiphenhydrAMINE HCL 25 MG CAPSULE PO SCH (20:06)
[2017-09-07 04:12] VITALS: BP 114/63
[2017-09-07] MEDS: OMEPRAZOLE 20 MG CAPSULE PO SCH (06:11)
[2017-09-07] MEDS: OLANZapine 5 MG TABLET PO SCH ×2 (06:11→20:31)
[2017-09-07] MEDS: TRIHEXYPHENIDYL HCL 5 MG TABLET PO SCH ×2 (06:11→16:09)
[2017-09-07] MEDS: VALPROIC ACID 250 MG/5 ML SYRUP UDCUP PO SCH ×2 (06:11→20:31)
[2017-09-07] MEDS: MULTIVITAMINS WITH IRON TABLET PO SCH (06:32)
[2017-09-07 08:30] VITALS: BP 113/64
[2017-09-07] MEDS: HydrALAZINE HCL 25 MG TABLET PO SCH ×3 (08:44→16:09)
[2017-09-07] MEDS: CHOLECALCIFEROL (VIT D3) 1,000 UNITS TABLET PO SCH (08:44)
[2017-09-07] MEDS: LISINOPRIL 20 MG TABLET PO SCH (08:44)
[2017-09-07] MEDS: NYSTATIN 15 GM POWDER BOTTLE TP SCH ×2 (09:18→16:16)
[2017-09-07] MEDS: ChlorproMAZINE HCL 100 MG TABLET PO PRN ×2 (09:54→16:35)
[2017-09-07] MEDS: LORazepam 2 MG TABLET PO PRN ×2 (10:58→16:09)
[2017-09-07 16:13] VITALS: BP 116/77
[2017-09-07] MEDS: DiphenhydrAMINE HCL 25 MG CAPSULE PO SCH (20:31)
[2017-09-08] MEDS: TRIHEXYPHENIDYL HCL 5 MG TABLET PO SCH ×2 (06:14→16:17)
[2017-09-08] MEDS: VALPROIC ACID 250 MG/5 ML SYRUP UDCUP PO SCH ×2 (06:14→20:29)
[2017-09-08] MEDS: OLANZapine 5 MG TABLET PO SCH ×2 (06:16→20:29)
[2017-09-08] MEDS: CHOLECALCIFEROL (VIT D3) 1,000 UNITS TABLET PO SCH (06:16)
[2017-09-08] MEDS: MULTIVITAMINS WITH IRON TABLET PO SCH (06:16)
[2017-09-08] MEDS: OMEPRAZOLE 20 MG CAPSULE PO SCH (06:43)
[2017-09-08 07:07] VITALS: BP 118/80
[2017-09-08 07:57] LABS: BASOPHILS % (AUTO) 0.9 % (0.0-2.0); EOSINOPHILS % (AUTO) 2.2 % (1.0-6.0); HEMATOCRIT 35.9 % (36-46); HEMOGLOBIN 12.3 g/dL (12.0-16.0); LYMPHOCYTES # (AUTO) 1.2 K/uL (1.0-4.8); LYMPHOCYTES % (AUTO) 40.6 % (22.0-44.0); MEAN CORPUSCULAR HEMOGLOBIN 33.3 pg (26.0-34.0); MEAN CORPUSCULAR HGB CONC 34.3 G/dL (31.0-37.0); MEAN CORPUSCULAR VOLUME 97 fL (80-100); MONOCYTES # (AUTO) 0.5 K/uL (0.1-1.0); MONOCYTES % (AUTO) 16.2 % (2.0-9.0); NEUTROPHILS # (AUTO) 1.2 K/uL (1.8-7.7); NEUTROPHILS % (AUTO) 40.1 % (40.0-70.0); PLATELET COUNT (AUTO) 231 K/uL (150-450); RED BLOOD CELL COUNT(AUTO) 3.69 MIL/uL (4.00-5.20); RED CELL DISTRIBUTION WIDTH 14.1 % (11.5-14.5)
[2017-09-08 08:22] LABS: ANION GAP 8 mmol/L (8-16); CALCIUM, TOTAL 9.4 mg/dL (8.8-10.5); CARBON DIOXIDE 29 mmol/L (22-29); CHLORIDE 100 mmol/L (98-107); CREATININE 0.75 mg/dL (0.60-1.30); GLOMERULAR FILTR. RATE CALC > 60 mL/min (>60); GLUCOSE,RANDOM 97 mg/dL (70-110); POTASSIUM 4.7 mmol/L (3.5-5.1); SODIUM SERUM 137 mmol/L (136-145); UREA NITROGEN, BLOOD 28 mg/dL (7-18); VALPROIC ACID 86 mcg/mL (50-100)
[2017-09-08 09:00] VITALS: BP 153/98
[2017-09-08] MEDS: LORazepam 2 MG TABLET PO PRN ×2 (09:11→17:11)
[2017-09-08] MEDS: NYSTATIN 15 GM POWDER BOTTLE TP SCH ×2 (09:11→16:17)
[2017-09-08] MEDS: LISINOPRIL 20 MG TABLET PO SCH (09:11)
[2017-09-08] MEDS: HydrALAZINE HCL 25 MG TABLET PO SCH ×3 (09:11→16:17)
[2017-09-08] MEDS: ChlorproMAZINE HCL 100 MG TABLET PO PRN (12:10)
[2017-09-08 12:30] VITALS: BP 138/83
[2017-09-08 16:26] VITALS: BP 100/60
[2017-09-08] MEDS: DiphenhydrAMINE HCL 25 MG CAPSULE PO SCH (20:29)
[2017-09-09 04:25] VITALS: BP 114/67
[2017-09-09] MEDS: TRIHEXYPHENIDYL HCL 5 MG TABLET PO SCH ×2 (06:19→16:19)
[2017-09-09] MEDS: VALPROIC ACID 250 MG/5 ML SYRUP UDCUP PO SCH ×2 (06:19→20:53)
[2017-09-09] MEDS: OMEPRAZOLE 20 MG CAPSULE PO SCH (06:19)
[2017-09-09] MEDS: OLANZapine 5 MG TABLET PO SCH ×2 (06:20→20:54)
[2017-09-09] MEDS: MULTIVITAMINS WITH IRON TABLET PO SCH (06:51)
[2017-09-09] MEDS: CHOLECALCIFEROL (VIT D3) 1,000 UNITS TABLET PO SCH (08:16)
[2017-09-09] MEDS: NYSTATIN 15 GM POWDER BOTTLE TP SCH ×2 (08:16→16:19)
[2017-09-09] MEDS: LISINOPRIL 20 MG TABLET PO SCH (08:16)
[2017-09-09] MEDS: HydrALAZINE HCL 25 MG TABLET PO SCH ×3 (08:16→16:19)
[2017-09-09 08:41] VITALS: BP 125/63
[2017-09-09] MEDS: ChlorproMAZINE HCL 100 MG TABLET PO PRN (08:57)
[2017-09-09] MEDS: LORazepam 2 MG TABLET PO PRN (09:47)
[2017-09-09 13:01] VITALS: BP 123/78
[2017-09-09 16:00] VITALS: BP 118/75
[2017-09-09] MEDS: DiphenhydrAMINE HCL 25 MG CAPSULE PO SCH (20:54)
[2017-09-10] MEDS: OMEPRAZOLE 20 MG CAPSULE PO SCH (06:38)
[2017-09-10] MEDS: MULTIVITAMINS WITH IRON TABLET PO SCH (06:39)
[2017-09-10] MEDS: VALPROIC ACID 250 MG/5 ML SYRUP UDCUP PO SCH ×2 (06:39→20:24)
[2017-09-10] MEDS: OLANZapine 5 MG TABLET PO SCH ×2 (06:39→20:25)
[2017-09-10] MEDS: TRIHEXYPHENIDYL HCL 5 MG TABLET PO SCH ×2 (06:39→16:15)
[2017-09-10 07:00] VITALS: BP 118/77
[2017-09-10 08:36] VITALS: BP_SYST 132
[2017-09-10] MEDS: LISINOPRIL 20 MG TABLET PO SCH (09:03)
[2017-09-10] MEDS: CHOLECALCIFEROL (VIT D3) 1,000 UNITS TABLET PO SCH (09:03)
[2017-09-10] MEDS: LORazepam 2 MG TABLET PO PRN ×2 (09:03→16:15)
[2017-09-10] MEDS: HydrALAZINE HCL 25 MG TABLET PO SCH ×3 (09:03→16:15)
[2017-09-10] MEDS: NYSTATIN 15 GM POWDER BOTTLE TP SCH ×2 (09:03→16:15)
[2017-09-10] MEDS: ChlorproMAZINE HCL 100 MG TABLET PO PRN (09:58)
[2017-09-10 16:23] VITALS: BP 116/69
[2017-09-10] MEDS: DiphenhydrAMINE HCL 25 MG CAPSULE PO SCH (20:24)
[2017-09-11] MEDS: TRIHEXYPHENIDYL HCL 5 MG TABLET PO SCH ×2 (06:06→16:13)
[2017-09-11] MEDS: VALPROIC ACID 250 MG/5 ML SYRUP UDCUP PO SCH ×2 (06:06→20:59)
[2017-09-11] MEDS: OLANZapine 5 MG TABLET PO SCH ×2 (06:07→20:59)
[2017-09-11] MEDS: OMEPRAZOLE 20 MG CAPSULE PO SCH (06:07)
[2017-09-11] MEDS: MULTIVITAMINS WITH IRON TABLET PO SCH (06:32)
[2017-09-11 07:05] VITALS: BP 117/71
[2017-09-11] MEDS: LISINOPRIL 20 MG TABLET PO SCH (08:08)
[2017-09-11] MEDS: HydrALAZINE HCL 25 MG TABLET PO SCH ×3 (08:08→17:29)
[2017-09-11] MEDS: NYSTATIN 15 GM POWDER BOTTLE TP SCH ×2 (08:08→16:14)
[2017-09-11] MEDS: CHOLECALCIFEROL (VIT D3) 1,000 UNITS TABLET PO SCH (08:08)
[2017-09-11 08:14] VITALS: BP 129/84
[2017-09-11] MEDS: ChlorproMAZINE HCL 100 MG TABLET PO PRN ×2 (08:44→16:13)
[2017-09-11] MEDS: LORazepam 2 MG TABLET PO PRN ×2 (08:45→16:13)
[2017-09-11 16:11] VITALS: BP 105/66
[2017-09-11] MEDS: DiphenhydrAMINE HCL 25 MG CAPSULE PO SCH (20:59)
[2017-09-12 02:00] VITALS: BP 137/61
[2017-09-12] MEDS: OLANZapine 5 MG TABLET PO SCH ×2 (06:17→20:27)
[2017-09-12] MEDS: TRIHEXYPHENIDYL HCL 5 MG TABLET PO SCH ×2 (06:17→16:54)
[2017-09-12] MEDS: VALPROIC ACID 250 MG/5 ML SYRUP UDCUP PO SCH ×2 (06:17→20:27)
[2017-09-12] MEDS: OMEPRAZOLE 20 MG CAPSULE PO SCH (06:17)
[2017-09-12] MEDS: CHOLECALCIFEROL (VIT D3) 1,000 UNITS TABLET PO SCH (08:01)
[2017-09-12] MEDS: MULTIVITAMINS WITH IRON TABLET PO SCH (08:01)
[2017-09-12] MEDS: HydrALAZINE HCL 25 MG TABLET PO SCH ×3 (08:01→16:54)
[2017-09-12] MEDS: ChlorproMAZINE HCL 100 MG TABLET PO PRN ×2 (08:01→16:53)
[2017-09-12] MEDS: LISINOPRIL 20 MG TABLET PO SCH (08:01)
[2017-09-12] MEDS: LORazepam 2 MG TABLET PO PRN ×2 (08:01→16:54)
[2017-09-12] MEDS: NYSTATIN 15 GM POWDER BOTTLE TP SCH ×2 (08:01→16:54)
[2017-09-12 08:30] VITALS: BP 126/83
[2017-09-12 16:33] VITALS: BP 133/74
[2017-09-12] MEDS: DiphenhydrAMINE HCL 25 MG CAPSULE PO SCH (20:27)
[2017-09-13 00:53] VITALS: BP 134/66
[2017-09-13] MEDS: VALPROIC ACID 250 MG/5 ML SYRUP UDCUP PO SCH ×2 (06:24→20:53)
[2017-09-13] MEDS: OLANZapine 5 MG TABLET PO SCH ×2 (06:24→20:55)
[2017-09-13] MEDS: TRIHEXYPHENIDYL HCL 5 MG TABLET PO SCH ×2 (06:24→16:59)
[2017-09-13] MEDS: OMEPRAZOLE 20 MG CAPSULE PO SCH (06:25)
[2017-09-13] MEDS: MULTIVITAMINS WITH IRON TABLET PO SCH (06:41)
[2017-09-13 08:00] VITALS: BP 140/63
[2017-09-13] MEDS: ChlorproMAZINE HCL 100 MG TABLET PO PRN ×2 (08:00→21:24)
[2017-09-13] MEDS: CHOLECALCIFEROL (VIT D3) 1,000 UNITS TABLET PO SCH (08:00)
[2017-09-13] MEDS: LISINOPRIL 20 MG TABLET PO SCH (08:00)
[2017-09-13] MEDS: NYSTATIN 15 GM POWDER BOTTLE TP SCH ×2 (08:01→17:00)
[2017-09-13] MEDS: HydrALAZINE HCL 25 MG TABLET PO SCH ×3 (08:01→16:59)
[2017-09-13 16:00] VITALS: BP 134/63
[2017-09-13] MEDS: DiphenhydrAMINE HCL 25 MG CAPSULE PO SCH (20:54)
[2017-09-14 02:01] VITALS: BP 131/63
[2017-09-14] MEDS: VALPROIC ACID 250 MG/5 ML SYRUP UDCUP PO SCH ×2 (06:28→20:40)
[2017-09-14] MEDS: TRIHEXYPHENIDYL HCL 5 MG TABLET PO SCH ×2 (06:28→17:22)
[2017-09-14] MEDS: OMEPRAZOLE 20 MG CAPSULE PO SCH (06:28)
[2017-09-14] MEDS: OLANZapine 5 MG TABLET PO SCH ×2 (06:29→21:27)
[2017-09-14] MEDS: MULTIVITAMINS WITH IRON TABLET PO SCH (06:50)
[2017-09-14 08:26] VITALS: BP 140/94
[2017-09-14] MEDS: HydrALAZINE HCL 25 MG TABLET PO SCH ×3 (09:14→17:22)
[2017-09-14] MEDS: CHOLECALCIFEROL (VIT D3) 1,000 UNITS TABLET PO SCH (09:14)
[2017-09-14] MEDS: LISINOPRIL 20 MG TABLET PO SCH (09:14)
[2017-09-14] MEDS: LORazepam 2 MG TABLET PO PRN ×2 (09:14→16:24)
[2017-09-14] MEDS: NYSTATIN 15 GM POWDER BOTTLE TP SCH ×2 (09:21→16:14)
[2017-09-14 16:23] VITALS: BP 114/71
[2017-09-14] MEDS: ChlorproMAZINE HCL 100 MG TABLET PO PRN (16:24)
[2017-09-14] MEDS: DiphenhydrAMINE HCL 25 MG CAPSULE PO SCH (20:40)
[2017-09-15 06:06] VITALS: BP 112/70
[2017-09-15] MEDS: OMEPRAZOLE 20 MG CAPSULE PO SCH (06:44)
[2017-09-15] MEDS: VALPROIC ACID 250 MG/5 ML SYRUP UDCUP PO SCH ×2 (06:51→20:42)
[2017-09-15] MEDS: MULTIVITAMINS WITH IRON TABLET PO SCH (06:52)
[2017-09-15] MEDS: TRIHEXYPHENIDYL HCL 5 MG TABLET PO SCH ×2 (06:52→16:49)
[2017-09-15] MEDS: OLANZapine 5 MG TABLET PO SCH ×2 (06:52→20:42)
[2017-09-15] MEDS: ChlorproMAZINE HCL 100 MG TABLET PO PRN ×2 (08:05→16:34)
[2017-09-15] MEDS: CHOLECALCIFEROL (VIT D3) 1,000 UNITS TABLET PO SCH (08:05)
[2017-09-15] MEDS: NYSTATIN 15 GM POWDER BOTTLE TP SCH ×2 (08:05→16:49)
[2017-09-15] MEDS: LISINOPRIL 20 MG TABLET PO SCH (08:05)
[2017-09-15] MEDS: HydrALAZINE HCL 25 MG TABLET PO SCH ×3 (08:05→16:49)
[2017-09-15 08:35] LABS: BASOPHILS % (AUTO) 0.9 % (0.0-2.0); EOSINOPHILS % (AUTO) 2.1 % (1.0-6.0); HEMATOCRIT 33.8 % (36-46); HEMOGLOBIN 11.7 g/dL (12.0-16.0); LYMPHOCYTES % (AUTO) 29.3 % (22.0-44.0); MEAN CORPUSCULAR HEMOGLOBIN 33.8 pg (26.0-34.0); MEAN CORPUSCULAR HGB CONC 34.7 G/dL (31.0-37.0); MEAN CORPUSCULAR VOLUME 98 fL (80-100); MONOCYTES # (AUTO) 0.5 K/uL (0.1-1.0); MONOCYTES % (AUTO) 13.9 % (2.0-9.0); NEUTROPHILS # (AUTO) 1.8 K/uL (1.8-7.7); NEUTROPHILS % (AUTO) 53.8 % (40.0-70.0); PLATELET COUNT (AUTO) 223 K/uL (150-450); RED BLOOD CELL COUNT(AUTO) 3.46 MIL/uL (4.00-5.20); RED CELL DISTRIBUTION WIDTH 13.9 % (11.5-14.5)
[2017-09-15 08:51] LABS: ALANINE AMINOTRANSFERASE 21 U/L (12-78); ALBUMIN 3.2 g/dL (3.4-5.0); ALKALINE PHOSPHATASE 54 U/L (46-116); ANION GAP 5 mmol/L (8-16); ASPARTATE AMINOTRANSFERASE 13 U/L (15-37); BILIRUBIN,TOTAL 0.2 mg/dL (0.1-1.0); CALCIUM, TOTAL 9.3 mg/dL (8.8-10.5); CARBON DIOXIDE 31 mmol/L (22-29); CHLORIDE 103 mmol/L (98-107); CREATININE 0.85 mg/dL (0.60-1.30); GLOMERULAR FILTR. RATE CALC > 60 mL/min (>60); GLUCOSE,RANDOM 92 mg/dL (70-110); POTASSIUM 4.9 mmol/L (3.5-5.1); SODIUM SERUM 139 mmol/L (136-145); TOTAL PROTEIN, SERUM 6.5 g/dL (6.4-8.2); UREA NITROGEN, BLOOD 25 mg/dL (7-18)
[2017-09-15 08:53] VITALS: BP 129/73
[2017-09-15] MEDS: FUROSEMIDE 20 MG TABLET PO SCH (13:53)
[2017-09-15 16:14] VITALS: BP 115/67
[2017-09-15] MEDS: LORazepam 2 MG TABLET PO PRN (16:34)
[2017-09-15] MEDS: DiphenhydrAMINE HCL 25 MG CAPSULE PO SCH (20:41)
[2017-09-16 05:38] VITALS: BP 118/70
[2017-09-16] MEDS: TRIHEXYPHENIDYL HCL 5 MG TABLET PO SCH ×2 (06:35→17:21)
[2017-09-16] MEDS: OLANZapine 5 MG TABLET PO SCH ×2 (06:35→20:30)
[2017-09-16] MEDS: OMEPRAZOLE 20 MG CAPSULE PO SCH (06:35)
[2017-09-16] MEDS: MULTIVITAMINS WITH IRON TABLET PO SCH (06:35)
[2017-09-16] MEDS: VALPROIC ACID 250 MG/5 ML SYRUP UDCUP PO SCH ×2 (06:36→20:30)
[2017-09-16] MEDS: POTASSIUM CHLORIDE 8 MEQ ER TABLET PO SCH (08:28)
[2017-09-16] MEDS: FUROSEMIDE 20 MG TABLET PO SCH (08:28)
[2017-09-16] MEDS: HydrALAZINE HCL 25 MG TABLET PO SCH ×3 (08:28→17:21)
[2017-09-16] MEDS: LISINOPRIL 20 MG TABLET PO SCH (08:28)
[2017-09-16] MEDS: LORazepam 2 MG TABLET PO PRN ×2 (08:28→16:13)
[2017-09-16] MEDS: CHOLECALCIFEROL (VIT D3) 1,000 UNITS TABLET PO SCH (08:28)
[2017-09-16] MEDS: NYSTATIN 15 GM POWDER BOTTLE TP SCH ×2 (08:29→17:21)
[2017-09-16 08:50] VITALS: BP 151/97
[2017-09-16] MEDS: ChlorproMAZINE HCL 100 MG TABLET PO PRN (16:13)
[2017-09-16 17:34] VITALS: BP 127/66
[2017-09-16] MEDS: DiphenhydrAMINE HCL 25 MG CAPSULE PO SCH (20:30)
[2017-09-17] MEDS: OMEPRAZOLE 20 MG CAPSULE PO SCH (06:43)
[2017-09-17] MEDS: MULTIVITAMINS WITH IRON TABLET PO SCH (06:44)
[2017-09-17] MEDS: VALPROIC ACID 250 MG/5 ML SYRUP UDCUP PO SCH ×2 (06:44→20:27)
[2017-09-17] MEDS: OLANZapine 5 MG TABLET PO SCH ×2 (06:44→20:27)
[2017-09-17] MEDS: TRIHEXYPHENIDYL HCL 5 MG TABLET PO SCH ×2 (06:44→16:38)
[2017-09-17 07:02] VITALS: BP 135/82
[2017-09-17 07:41] LABS: BAND NEUTROPHILS % (MANUAL) 0 % (0-5)
[2017-09-17 07:48] LABS: BASOPHILS % (AUTO) 0.9 % (0.0-2.0); EOSINOPHILS % (AUTO) 1.9 % (1.0-6.0); HEMATOCRIT 34.6 % (36-46); HEMOGLOBIN 11.8 g/dL (12.0-16.0); LYMPHOCYTES # (AUTO) 1.1 K/uL (1.0-4.8); LYMPHOCYTES % (AUTO) 27.8 % (22.0-44.0); MEAN CORPUSCULAR HEMOGLOBIN 33.3 pg (26.0-34.0); MEAN CORPUSCULAR VOLUME 98 fL (80-100); MONOCYTES # (AUTO) 0.6 K/uL (0.1-1.0); MONOCYTES % (AUTO) 16.1 % (2.0-9.0); NEUTROPHILS # (AUTO) 2.1 K/uL (1.8-7.7); NEUTROPHILS % (AUTO) 53.3 % (40.0-70.0); PLATELET COUNT (AUTO) 224 K/uL (150-450); RED BLOOD CELL COUNT(AUTO) 3.54 MIL/uL (4.00-5.20); RED CELL DISTRIBUTION WIDTH 13.5 % (11.5-14.5)
[2017-09-17 08:00] VITALS: BP 107/53
[2017-09-17 08:14] LABS: ALBUMIN 3.4 g/dL (3.4-5.0); BILIRUBIN,TOTAL 0.2 mg/dL (0.1-1.0); CALCIUM, TOTAL 9.1 mg/dL (8.8-10.5); CHOL/HDL RATIO 2.5 (3.9-5.7); CREATININE 0.97 mg/dL (0.60-1.30); MAGNESIUM 1.7 mg/dL (1.80-2.40); PHOSPHORUS 4.6 mg/dL (2.5-4.9); POTASSIUM 4.7 mmol/L (3.5-5.1); TOTAL PROTEIN, SERUM 6.7 g/dL (6.4-8.2)
[2017-09-17 08:35] LABS: THYROID STIMULATING HORMONE 2.75 uIU/mL (0.36-3.74)
[2017-09-17 08:37] LABS: BILIRUBIN,DIRECT 0.1 mg/dL (0.00-0.20)
[2017-09-17] MEDS: POTASSIUM CHLORIDE 8 MEQ ER TABLET PO SCH (08:48)
[2017-09-17] MEDS: FUROSEMIDE 20 MG TABLET PO SCH (08:49)
[2017-09-17] MEDS: CHOLECALCIFEROL (VIT D3) 1,000 UNITS TABLET PO SCH (08:49)
[2017-09-17] MEDS: NYSTATIN 15 GM POWDER BOTTLE TP SCH ×2 (08:50→16:38)
[2017-09-17] MEDS: HydrALAZINE HCL 25 MG TABLET PO SCH ×3 (08:50→16:38)
[2017-09-17] MEDS: LISINOPRIL 20 MG TABLET PO SCH (08:50)
[2017-09-17 11:44] LABS: LYMPHOCYTES % (MANUAL) 59 % (22-44); MONOCYTES % (MANUAL) 2 % (2-9); SEGMENTED NEUTROPHILS % 39 % (40-70)
[2017-09-17 13:03] VITALS: BP 121/89
[2017-09-17 16:03] VITALS: BP 140/91
[2017-09-17] MEDS: DiphenhydrAMINE HCL 25 MG CAPSULE PO SCH (20:27)
[2017-09-18] MEDS: TRIHEXYPHENIDYL HCL 5 MG TABLET PO SCH ×2 (06:16→16:27)
[2017-09-18] MEDS: VALPROIC ACID 250 MG/5 ML SYRUP UDCUP PO SCH ×2 (06:16→20:19)
[2017-09-18] MEDS: OMEPRAZOLE 20 MG CAPSULE PO SCH (06:16)
[2017-09-18] MEDS: OLANZapine 5 MG TABLET PO SCH ×2 (06:17→20:19)
[2017-09-18] MEDS: MULTIVITAMINS WITH IRON TABLET PO SCH (06:17)
[2017-09-18 07:10] VITALS: BP 138/82
[2017-09-18 08:38] VITALS: BP 130/82
[2017-09-18] MEDS: POTASSIUM CHLORIDE 8 MEQ ER TABLET PO SCH (09:13)
[2017-09-18] MEDS: HydrALAZINE HCL 25 MG TABLET PO SCH ×3 (09:13→17:00)
[2017-09-18] MEDS: FUROSEMIDE 20 MG TABLET PO SCH (09:13)
[2017-09-18] MEDS: LORazepam 2 MG TABLET PO PRN ×2 (09:14→16:27)
[2017-09-18] MEDS: NYSTATIN 15 GM POWDER BOTTLE TP SCH ×2 (09:14→16:27)
[2017-09-18] MEDS: LISINOPRIL 20 MG TABLET PO SCH (09:14)
[2017-09-18] MEDS: CHOLECALCIFEROL (VIT D3) 1,000 UNITS TABLET PO SCH (09:14)
[2017-09-18] MEDS: ChlorproMAZINE HCL 100 MG TABLET PO PRN ×2 (09:14→16:27)
[2017-09-18 16:02] VITALS: BP 100/63
[2017-09-18] MEDS: DiphenhydrAMINE HCL 25 MG CAPSULE PO SCH (20:19)
[2017-09-19 06:15] VITALS: BP 102/65
[2017-09-19] MEDS: OLANZapine 5 MG TABLET PO SCH ×2 (06:43→20:16)
[2017-09-19] MEDS: TRIHEXYPHENIDYL HCL 5 MG TABLET PO SCH ×2 (06:43→16:21)
[2017-09-19] MEDS: MULTIVITAMINS WITH IRON TABLET PO SCH (06:43)
[2017-09-19] MEDS: OMEPRAZOLE 20 MG CAPSULE PO SCH (06:43)
[2017-09-19] MEDS: VALPROIC ACID 250 MG/5 ML SYRUP UDCUP PO SCH ×2 (06:44→20:16)
[2017-09-19] MEDS: HydrALAZINE HCL 25 MG TABLET PO SCH ×3 (08:30→17:00)
[2017-09-19] MEDS: LISINOPRIL 20 MG TABLET PO SCH (08:30)
[2017-09-19] MEDS: FUROSEMIDE 20 MG TABLET PO SCH (08:30)
[2017-09-19] MEDS: CHOLECALCIFEROL (VIT D3) 1,000 UNITS TABLET PO SCH (08:31)
[2017-09-19] MEDS: POTASSIUM CHLORIDE 8 MEQ ER TABLET PO SCH (08:31)
[2017-09-19] MEDS: LORazepam 2 MG TABLET PO PRN ×2 (08:31→16:59)
[2017-09-19 08:55] VITALS: BP 145/65
[2017-09-19] MEDS: NYSTATIN 15 GM POWDER BOTTLE TP SCH ×2 (09:27→16:22)
[2017-09-19] MEDS: MAGNESIUM OXIDE 400 MG TABLET PO SCH ×2 (09:27→16:21)
[2017-09-19] MEDS: ChlorproMAZINE HCL 100 MG TABLET PO PRN ×2 (12:29→16:59)
[2017-09-19 16:28] VITALS: BP 102/68
[2017-09-19] MEDS: DiphenhydrAMINE HCL 25 MG CAPSULE PO SCH (20:16)
[2017-09-20 04:45] VITALS: BP 112/67
[2017-09-20] MEDS: TRIHEXYPHENIDYL HCL 5 MG TABLET PO SCH ×2 (06:33→17:35)
[2017-09-20] MEDS: OMEPRAZOLE 20 MG CAPSULE PO SCH (06:33)
[2017-09-20] MEDS: OLANZapine 5 MG TABLET PO SCH ×2 (06:33→20:04)
[2017-09-20] MEDS: VALPROIC ACID 250 MG/5 ML SYRUP UDCUP PO SCH ×2 (06:33→20:05)
[2017-09-20] MEDS: MULTIVITAMINS WITH IRON TABLET PO SCH (06:33)
[2017-09-20 08:44] VITALS: BP 131/73
[2017-09-20] MEDS: CHOLECALCIFEROL (VIT D3) 1,000 UNITS TABLET PO SCH (08:55)
[2017-09-20] MEDS: LORazepam 2 MG TABLET PO PRN ×2 (08:55→16:31)
[2017-09-20] MEDS: MAGNESIUM OXIDE 400 MG TABLET PO SCH ×2 (08:55→17:35)
[2017-09-20] MEDS: ChlorproMAZINE HCL 100 MG TABLET PO PRN ×2 (08:55→16:31)
[2017-09-20] MEDS: HydrALAZINE HCL 25 MG TABLET PO SCH ×3 (08:55→18:01)
[2017-09-20] MEDS: POTASSIUM CHLORIDE 8 MEQ ER TABLET PO SCH (08:55)
[2017-09-20] MEDS: LISINOPRIL 20 MG TABLET PO SCH (08:56)
[2017-09-20] MEDS: FUROSEMIDE 20 MG TABLET PO SCH (08:56)
[2017-09-20] MEDS: NYSTATIN 15 GM POWDER BOTTLE TP SCH ×2 (08:56→16:30)
[2017-09-20 11:59] VITALS: BP 133/78
[2017-09-20 16:22] VITALS: BP 109/62
[2017-09-20 18:00] VITALS: BP 118/70
[2017-09-20] MEDS: DiphenhydrAMINE HCL 25 MG CAPSULE PO SCH (20:05)
[2017-09-21] MEDS: OMEPRAZOLE 20 MG CAPSULE PO SCH (06:32)
[2017-09-21 06:44] VITALS: BP 127/84
[2017-09-21] MEDS: VALPROIC ACID 250 MG/5 ML SYRUP UDCUP PO SCH ×2 (06:48→21:03)
[2017-09-21] MEDS: MULTIVITAMINS WITH IRON TABLET PO SCH (06:48)
[2017-09-21] MEDS: TRIHEXYPHENIDYL HCL 5 MG TABLET PO SCH ×2 (06:48→17:10)
[2017-09-21] MEDS: OLANZapine 5 MG TABLET PO SCH ×2 (06:49→21:03)
[2017-09-21 08:03] LABS: ANION GAP 6 mmol/L (8-16); CALCIUM, TOTAL 9.5 mg/dL (8.8-10.5); CARBON DIOXIDE 32 mmol/L (22-29); CHLORIDE 100 mmol/L (98-107); CREATININE 0.89 mg/dL (0.60-1.30); GLOMERULAR FILTR. RATE CALC > 60 mL/min (>60); GLUCOSE,RANDOM 98 mg/dL (70-110); POTASSIUM 5.2 mmol/L (3.5-5.1); SODIUM SERUM 138 mmol/L (136-145); UREA NITROGEN, BLOOD 36 mg/dL (7-18)
[2017-09-21 08:32] VITALS: BP 132/69
[2017-09-21] MEDS: FUROSEMIDE 20 MG TABLET PO SCH (08:45)
[2017-09-21] MEDS: HydrALAZINE HCL 25 MG TABLET PO SCH ×3 (08:45→17:09)
[2017-09-21] MEDS: CHOLECALCIFEROL (VIT D3) 1,000 UNITS TABLET PO SCH (08:45)
[2017-09-21] MEDS: LISINOPRIL 20 MG TABLET PO SCH (08:45)
[2017-09-21] MEDS: NYSTATIN 15 GM POWDER BOTTLE TP SCH ×2 (08:45→17:10)
[2017-09-21] MEDS: MAGNESIUM OXIDE 400 MG TABLET PO SCH ×2 (08:45→17:10)
[2017-09-21] MEDS: POTASSIUM CHLORIDE 8 MEQ ER TABLET PO SCH (08:46)
[2017-09-21] MEDS ORDERED: SODIUM POLYSTYRENE SULFONATE 15 GM/60 ML SUSPENSION BOTTLE PO ONE (09:00)
[2017-09-21] MEDS: ChlorproMAZINE HCL 100 MG TABLET PO PRN ×2 (09:48→17:08)
[2017-09-21] MEDS: LORazepam 2 MG TABLET PO PRN (09:48)
[2017-09-21 16:24] VITALS: BP 110/70
[2017-09-21] MEDS: DiphenhydrAMINE HCL 25 MG CAPSULE PO SCH (21:03)
[2017-09-22 03:31] VITALS: BP 114/68
[2017-09-22] MEDS: TRIHEXYPHENIDYL HCL 5 MG TABLET PO SCH ×2 (06:35→16:08)
[2017-09-22] MEDS: OLANZapine 5 MG TABLET PO SCH ×2 (06:35→20:19)
[2017-09-22] MEDS: MULTIVITAMINS WITH IRON TABLET PO SCH (06:35)
[2017-09-22] MEDS: OMEPRAZOLE 20 MG CAPSULE PO SCH (06:35)
[2017-09-22] MEDS: VALPROIC ACID 250 MG/5 ML SYRUP UDCUP PO SCH ×2 (06:36→20:21)
[2017-09-22 08:20] VITALS: BP 109/51
[2017-09-22] MEDS: LORazepam 2 MG TABLET PO PRN ×2 (08:51→14:34)
[2017-09-22] MEDS: ChlorproMAZINE HCL 100 MG TABLET PO PRN (08:51)
[2017-09-22] MEDS: HydrALAZINE HCL 25 MG TABLET PO SCH ×3 (08:51→16:08)
[2017-09-22] MEDS: LISINOPRIL 20 MG TABLET PO SCH (08:51)
[2017-09-22] MEDS: NYSTATIN 15 GM POWDER BOTTLE TP SCH ×2 (08:51→17:33)
[2017-09-22] MEDS: CHOLECALCIFEROL (VIT D3) 1,000 UNITS TABLET PO SCH (08:51)
[2017-09-22] MEDS: FUROSEMIDE 20 MG TABLET PO SCH (08:51)
[2017-09-22] MEDS: MAGNESIUM OXIDE 400 MG TABLET PO SCH ×2 (08:51→16:08)
[2017-09-22 16:31] VITALS: BP 111/69
[2017-09-22] MEDS: DiphenhydrAMINE HCL 25 MG CAPSULE PO SCH (20:21)
[2017-09-23 06:27] VITALS: BP 118/68
[2017-09-23] MEDS: OMEPRAZOLE 20 MG CAPSULE PO SCH (06:33)
[2017-09-23] MEDS: OLANZapine 5 MG TABLET PO SCH ×2 (06:33→20:33)
[2017-09-23] MEDS: TRIHEXYPHENIDYL HCL 5 MG TABLET PO SCH ×2 (06:34→16:40)
[2017-09-23] MEDS: VALPROIC ACID 250 MG/5 ML SYRUP UDCUP PO SCH ×2 (06:34→20:33)
[2017-09-23] MEDS: MULTIVITAMINS WITH IRON TABLET PO SCH (06:34)
[2017-09-23 08:23] VITALS: BP 121/62
[2017-09-23] MEDS: CHOLECALCIFEROL (VIT D3) 1,000 UNITS TABLET PO SCH (09:15)
[2017-09-23] MEDS: NYSTATIN 15 GM POWDER BOTTLE TP SCH ×2 (09:15→16:40)
[2017-09-23] MEDS: HydrALAZINE HCL 25 MG TABLET PO SCH ×3 (09:15→16:40)
[2017-09-23] MEDS: MAGNESIUM OXIDE 400 MG TABLET PO SCH ×2 (09:15→16:40)
[2017-09-23] MEDS: LISINOPRIL 20 MG TABLET PO SCH (09:15)
[2017-09-23] MEDS: LORazepam 2 MG TABLET PO PRN ×2 (09:15→13:16)
[2017-09-23] MEDS: ChlorproMAZINE HCL 100 MG TABLET PO PRN ×2 (09:15→13:16)
[2017-09-23] MEDS: FUROSEMIDE 20 MG TABLET PO SCH (09:15)
[2017-09-23 16:22] VITALS: BP 122/68
[2017-09-23] MEDS: DiphenhydrAMINE HCL 25 MG CAPSULE PO SCH (20:33)
[2017-09-24 06:00] VITALS: BP 112/74
[2017-09-24] MEDS: OLANZapine 5 MG TABLET PO SCH ×2 (06:25→20:47)
[2017-09-24] MEDS: TRIHEXYPHENIDYL HCL 5 MG TABLET PO SCH ×2 (06:25→17:32)
[2017-09-24] MEDS: VALPROIC ACID 250 MG/5 ML SYRUP UDCUP PO SCH ×2 (06:25→20:47)
[2017-09-24] MEDS: OMEPRAZOLE 20 MG CAPSULE PO SCH (06:25)
[2017-09-24] MEDS: MULTIVITAMINS WITH IRON TABLET PO SCH (06:30)
[2017-09-24 08:16] VITALS: BP 145/68
[2017-09-24] MEDS: FUROSEMIDE 20 MG TABLET PO SCH (08:20)
[2017-09-24] MEDS: HydrALAZINE HCL 25 MG TABLET PO SCH ×3 (08:20→17:32)
[2017-09-24] MEDS: NYSTATIN 15 GM POWDER BOTTLE TP SCH ×2 (08:21→17:32)
[2017-09-24] MEDS: LISINOPRIL 20 MG TABLET PO SCH (08:21)
[2017-09-24] MEDS: CHOLECALCIFEROL (VIT D3) 1,000 UNITS TABLET PO SCH (08:21)
[2017-09-24] MEDS: MAGNESIUM OXIDE 400 MG TABLET PO SCH ×2 (08:21→17:32)
[2017-09-24 16:00] VITALS: BP 128/78
[2017-09-24] MEDS: LORazepam 2 MG TABLET PO PRN (16:23)
[2017-09-24] MEDS: ChlorproMAZINE HCL 100 MG TABLET PO PRN (16:23)
[2017-09-24] MEDS: DiphenhydrAMINE HCL 25 MG CAPSULE PO SCH (20:47)
[2017-09-25] MEDS: OLANZapine 5 MG TABLET PO SCH ×2 (06:10→20:41)
[2017-09-25] MEDS: OMEPRAZOLE 20 MG CAPSULE PO SCH (06:10)
[2017-09-25] MEDS: TRIHEXYPHENIDYL HCL 5 MG TABLET PO SCH ×2 (06:10→16:34)
[2017-09-25] MEDS: VALPROIC ACID 250 MG/5 ML SYRUP UDCUP PO SCH ×2 (06:24→20:41)
[2017-09-25] MEDS: MULTIVITAMINS WITH IRON TABLET PO SCH (06:32)
[2017-09-25] MEDS: MAGNESIUM OXIDE 400 MG TABLET PO SCH ×2 (08:15→16:34)
[2017-09-25] MEDS: FUROSEMIDE 20 MG TABLET PO SCH (08:15)
[2017-09-25] MEDS: LISINOPRIL 20 MG TABLET PO SCH (08:15)
[2017-09-25] MEDS: ChlorproMAZINE HCL 100 MG TABLET PO PRN ×2 (08:15→16:54)
[2017-09-25] MEDS: CHOLECALCIFEROL (VIT D3) 1,000 UNITS TABLET PO SCH (08:15)
[2017-09-25] MEDS: HydrALAZINE HCL 25 MG TABLET PO SCH ×3 (08:15→16:34)
[2017-09-25] MEDS: NYSTATIN 15 GM POWDER BOTTLE TP SCH ×2 (08:24→16:34)
[2017-09-25 08:38] VITALS: BP 140/87
[2017-09-25] MEDS: LORazepam 2 MG TABLET PO PRN ×2 (08:50→16:34)
[2017-09-25 16:08] VITALS: BP 109/68
[2017-09-25] MEDS: DiphenhydrAMINE HCL 25 MG CAPSULE PO SCH (20:41)
[2017-09-26 05:07] VITALS: BP 138/88
[2017-09-26] MEDS: OMEPRAZOLE 20 MG CAPSULE PO SCH (06:28)
[2017-09-26] MEDS: OLANZapine 5 MG TABLET PO SCH ×2 (06:28→21:00)
[2017-09-26] MEDS: TRIHEXYPHENIDYL HCL 5 MG TABLET PO SCH ×2 (06:28→17:16)
[2017-09-26] MEDS: MULTIVITAMINS WITH IRON TABLET PO SCH (06:38)
[2017-09-26] MEDS: VALPROIC ACID 250 MG/5 ML SYRUP UDCUP PO SCH ×2 (06:38→21:00)
[2017-09-26 07:38] LABS: BASOPHILS % (AUTO) 0.8 % (0.0-2.0); EOSINOPHILS % (AUTO) 2.4 % (1.0-6.0); HEMOGLOBIN 11.9 g/dL (12.0-16.0); LYMPHOCYTES # (AUTO) 1.2 K/uL (1.0-4.8); LYMPHOCYTES % (AUTO) 32.3 % (22.0-44.0); MEAN CORPUSCULAR HEMOGLOBIN 33.3 pg (26.0-34.0); MEAN CORPUSCULAR HGB CONC 33.9 G/dL (31.0-37.0); MEAN CORPUSCULAR VOLUME 98 fL (80-100); MONOCYTES # (AUTO) 0.5 K/uL (0.1-1.0); MONOCYTES % (AUTO) 13.6 % (2.0-9.0); NEUTROPHILS # (AUTO) 1.9 K/uL (1.8-7.7); NEUTROPHILS % (AUTO) 50.9 % (40.0-70.0); PLATELET COUNT (AUTO) 215 K/uL (150-450); RED BLOOD CELL COUNT(AUTO) 3.57 MIL/uL (4.00-5.20); RED CELL DISTRIBUTION WIDTH 13.1 % (11.5-14.5)
[2017-09-26 08:02] LABS: CALCIUM, TOTAL 9.4 mg/dL (8.8-10.5); CREATININE 0.97 mg/dL (0.60-1.30); MAGNESIUM 1.9 mg/dL (1.80-2.40); PHOSPHORUS 4.8 mg/dL (2.5-4.9); POTASSIUM 5.2 mmol/L (3.5-5.1)
[2017-09-26 08:16] VITALS: BP 122/82
[2017-09-26] MEDS ORDERED: SODIUM POLYSTYRENE SULFONATE 15 GM/60 ML SUSPENSION BOTTLE PO ONE (09:15)
[2017-09-26] MEDS: HydrALAZINE HCL 25 MG TABLET PO SCH ×3 (09:50→17:16)
[2017-09-26] MEDS: FUROSEMIDE 20 MG TABLET PO SCH (09:50)
[2017-09-26] MEDS: MAGNESIUM OXIDE 400 MG TABLET PO SCH ×2 (09:50→17:16)
[2017-09-26] MEDS: LORazepam 2 MG TABLET PO PRN (09:50)
[2017-09-26] MEDS: LISINOPRIL 20 MG TABLET PO SCH (09:50)
[2017-09-26] MEDS: CHOLECALCIFEROL (VIT D3) 1,000 UNITS TABLET PO SCH (09:51)
[2017-09-26] MEDS: NYSTATIN 15 GM POWDER BOTTLE TP SCH ×2 (09:51→17:16)
[2017-09-26] MEDS: ChlorproMAZINE HCL 100 MG TABLET PO PRN (17:16)
[2017-09-26] MEDS: DiphenhydrAMINE HCL 25 MG CAPSULE PO SCH (21:00)
[2017-09-27] MEDS: OMEPRAZOLE 20 MG CAPSULE PO SCH (06:34)
[2017-09-27] MEDS: MULTIVITAMINS WITH IRON TABLET PO SCH (06:35)
[2017-09-27] MEDS: VALPROIC ACID 250 MG/5 ML SYRUP UDCUP PO SCH ×2 (06:35→20:49)
[2017-09-27] MEDS: OLANZapine 5 MG TABLET PO SCH ×2 (06:35→20:50)
[2017-09-27] MEDS: TRIHEXYPHENIDYL HCL 5 MG TABLET PO SCH ×2 (06:35→16:10)
[2017-09-27 08:02] VITALS: BP 137/72
[2017-09-27] MEDS: NYSTATIN 15 GM POWDER BOTTLE TP SCH ×2 (08:05→16:10)
[2017-09-27] MEDS: HydrALAZINE HCL 25 MG TABLET PO SCH ×3 (08:05→16:10)
[2017-09-27] MEDS: ChlorproMAZINE HCL 100 MG TABLET PO PRN (08:05)
[2017-09-27] MEDS: FUROSEMIDE 20 MG TABLET PO SCH (08:06)
[2017-09-27] MEDS: MAGNESIUM OXIDE 400 MG TABLET PO SCH ×2 (08:06→16:10)
[2017-09-27] MEDS: LISINOPRIL 20 MG TABLET PO SCH (08:06)
[2017-09-27] MEDS: CHOLECALCIFEROL (VIT D3) 1,000 UNITS TABLET PO SCH (08:06)
[2017-09-27 16:17] VITALS: BP 114/74
[2017-09-27] MEDS: LORazepam 2 MG TABLET PO PRN (16:48)
[2017-09-27] MEDS: DiphenhydrAMINE HCL 25 MG CAPSULE PO SCH (20:50)
[2017-09-28] MEDS: VALPROIC ACID 250 MG/5 ML SYRUP UDCUP PO SCH ×2 (06:35→20:41)
[2017-09-28] MEDS: OMEPRAZOLE 20 MG CAPSULE PO SCH (06:35)
[2017-09-28] MEDS: MULTIVITAMINS WITH IRON TABLET PO SCH (06:36)
[2017-09-28] MEDS: OLANZapine 5 MG TABLET PO SCH ×2 (06:36→20:41)
[2017-09-28] MEDS: TRIHEXYPHENIDYL HCL 5 MG TABLET PO SCH ×2 (06:36→17:24)
[2017-09-28 08:10] VITALS: BP 127/84
[2017-09-28 08:12] LABS: CALCIUM, TOTAL 9.2 mg/dL (8.8-10.5); CREATININE 0.95 mg/dL (0.60-1.30); POTASSIUM 4.6 mmol/L (3.5-5.1)
[2017-09-28] MEDS: CHOLECALCIFEROL (VIT D3) 1,000 UNITS TABLET PO SCH (08:21)
[2017-09-28] MEDS: LISINOPRIL 20 MG TABLET PO SCH (08:21)
[2017-09-28] MEDS: HydrALAZINE HCL 25 MG TABLET PO SCH ×3 (08:21→17:24)
[2017-09-28] MEDS: ChlorproMAZINE HCL 100 MG TABLET PO PRN ×2 (08:21→17:24)
[2017-09-28] MEDS: LORazepam 2 MG TABLET PO PRN ×3 (08:21→17:53)
[2017-09-28] MEDS: NYSTATIN 15 GM POWDER BOTTLE TP SCH ×2 (08:21→17:24)
[2017-09-28] MEDS: MAGNESIUM OXIDE 400 MG TABLET PO SCH ×2 (08:21→17:24)
[2017-09-28] MEDS: FUROSEMIDE 20 MG TABLET PO SCH (08:21)
[2017-09-28 16:06] VITALS: BP 109/69
[2017-09-28] MEDS ORDERED: BENZOCAINE/MENTHOL LOZENGE MM PRN (18:15)
[2017-09-28] MEDS: DiphenhydrAMINE HCL 25 MG CAPSULE PO SCH (20:41)
[2017-09-29] MEDS: MULTIVITAMINS WITH IRON TABLET PO SCH (06:34)
[2017-09-29] MEDS: OMEPRAZOLE 20 MG CAPSULE PO SCH (06:34)
[2017-09-29] MEDS: TRIHEXYPHENIDYL HCL 5 MG TABLET PO SCH ×2 (06:34→16:57)
[2017-09-29] MEDS: VALPROIC ACID 250 MG/5 ML SYRUP UDCUP PO SCH ×2 (06:34→20:59)
[2017-09-29] MEDS: OLANZapine 5 MG TABLET PO SCH ×2 (06:34→20:59)
[2017-09-29 07:19] VITALS: BP 128/72
[2017-09-29] MEDS: LISINOPRIL 20 MG TABLET PO SCH (08:02)
[2017-09-29] MEDS: HydrALAZINE HCL 25 MG TABLET PO SCH ×3 (08:02→16:57)
[2017-09-29] MEDS: NYSTATIN 15 GM POWDER BOTTLE TP SCH ×2 (08:02→16:57)
[2017-09-29] MEDS: CHOLECALCIFEROL (VIT D3) 1,000 UNITS TABLET PO SCH (08:02)
[2017-09-29] MEDS: LORazepam 2 MG TABLET PO PRN ×2 (08:02→16:02)
[2017-09-29] MEDS: FUROSEMIDE 20 MG TABLET PO SCH (08:02)
[2017-09-29] MEDS: ChlorproMAZINE HCL 100 MG TABLET PO PRN ×2 (08:02→16:02)
[2017-09-29] MEDS: MAGNESIUM OXIDE 400 MG TABLET PO SCH ×2 (08:09→16:57)
[2017-09-29 08:28] VITALS: BP 103/58
[2017-09-29 16:01] VITALS: BP 112/73
[2017-09-29] MEDS: DiphenhydrAMINE HCL 25 MG CAPSULE PO SCH (20:59)
[2017-09-30] MEDS: LORazepam 2 MG TABLET PO PRN ×3 (03:20→16:29)
[2017-09-30] MEDS: ChlorproMAZINE HCL 100 MG TABLET PO PRN ×3 (03:20→16:29)
[2017-09-30 06:10] VITALS: BP 117/67
[2017-09-30] MEDS: TRIHEXYPHENIDYL HCL 5 MG TABLET PO SCH ×2 (06:16→17:09)
[2017-09-30] MEDS: OLANZapine 5 MG TABLET PO SCH ×2 (06:16→20:26)
[2017-09-30] MEDS: VALPROIC ACID 250 MG/5 ML SYRUP UDCUP PO SCH ×2 (06:16→20:26)
[2017-09-30] MEDS: OMEPRAZOLE 20 MG CAPSULE PO SCH (06:16)
[2017-09-30] MEDS: MULTIVITAMINS WITH IRON TABLET PO SCH (06:32)
[2017-09-30 08:20] VITALS: BP 111/70
[2017-09-30] MEDS: LISINOPRIL 20 MG TABLET PO SCH (08:46)
[2017-09-30] MEDS: MAGNESIUM OXIDE 400 MG TABLET PO SCH ×2 (08:47→17:09)
[2017-09-30] MEDS: NYSTATIN 15 GM POWDER BOTTLE TP SCH ×2 (08:47→17:09)
[2017-09-30] MEDS: FUROSEMIDE 20 MG TABLET PO SCH (08:47)
[2017-09-30] MEDS: HydrALAZINE HCL 25 MG TABLET PO SCH ×3 (08:47→17:09)
[2017-09-30] MEDS: CHOLECALCIFEROL (VIT D3) 1,000 UNITS TABLET PO SCH (08:47)
[2017-09-30 16:22] VITALS: BP 123/63
[2017-09-30] MEDS: DiphenhydrAMINE HCL 25 MG CAPSULE PO SCH (20:26)
[2017-10-01] MEDS: VALPROIC ACID 250 MG/5 ML SYRUP UDCUP PO SCH ×2 (06:22→20:07)
[2017-10-01] MEDS: OLANZapine 5 MG TABLET PO SCH ×2 (06:22→20:08)
[2017-10-01] MEDS: OMEPRAZOLE 20 MG CAPSULE PO SCH (06:23)
[2017-10-01] MEDS: MULTIVITAMINS WITH IRON TABLET PO SCH (06:23)
[2017-10-01] MEDS: TRIHEXYPHENIDYL HCL 5 MG TABLET PO SCH ×2 (06:24→16:13)
[2017-10-01 07:24] VITALS: BP 135/78
[2017-10-01 08:00] VITALS: BP 106/65
[2017-10-01] MEDS: CHOLECALCIFEROL (VIT D3) 1,000 UNITS TABLET PO SCH (08:32)
[2017-10-01] MEDS: LISINOPRIL 20 MG TABLET PO SCH (08:32)
[2017-10-01] MEDS: HydrALAZINE HCL 25 MG TABLET PO SCH ×3 (08:32→16:13)
[2017-10-01] MEDS: FUROSEMIDE 20 MG TABLET PO SCH (08:32)
[2017-10-01] MEDS: NYSTATIN 15 GM POWDER BOTTLE TP SCH ×2 (08:32→16:13)
[2017-10-01] MEDS: MAGNESIUM OXIDE 400 MG TABLET PO SCH ×2 (08:32→16:13)
[2017-10-01] MEDS: LORazepam 2 MG TABLET PO PRN ×2 (09:11→16:15)
[2017-10-01] MEDS: ChlorproMAZINE HCL 100 MG TABLET PO PRN (09:11)
[2017-10-01 12:05] VITALS: BP 112/74
[2017-10-01 16:09] VITALS: BP 131/72
[2017-10-01] MEDS: DiphenhydrAMINE HCL 25 MG CAPSULE PO SCH (20:05)
[2017-10-02] MEDS: VALPROIC ACID 250 MG/5 ML SYRUP UDCUP PO SCH ×2 (06:23→20:24)
[2017-10-02] MEDS: TRIHEXYPHENIDYL HCL 5 MG TABLET PO SCH ×2 (06:26→16:08)
[2017-10-02] MEDS: OMEPRAZOLE 20 MG CAPSULE PO SCH (06:26)
[2017-10-02] MEDS: MULTIVITAMINS WITH IRON TABLET PO SCH (06:26)
[2017-10-02] MEDS: OLANZapine 5 MG TABLET PO SCH ×2 (06:26→20:27)
[2017-10-02] MEDS: LORazepam 2 MG TABLET PO PRN ×2 (08:49→17:01)
[2017-10-02] MEDS: HydrALAZINE HCL 25 MG TABLET PO SCH ×3 (08:49→16:08)
[2017-10-02] MEDS: FUROSEMIDE 20 MG TABLET PO SCH (08:49)
[2017-10-02] MEDS: CHOLECALCIFEROL (VIT D3) 1,000 UNITS TABLET PO SCH (08:49)
[2017-10-02] MEDS: MAGNESIUM OXIDE 400 MG TABLET PO SCH ×2 (08:49→16:11)
[2017-10-02] MEDS: LISINOPRIL 20 MG TABLET PO SCH (08:49)
[2017-10-02] MEDS: NYSTATIN 15 GM POWDER BOTTLE TP SCH ×2 (08:49→16:09)
[2017-10-02] MEDS: ChlorproMAZINE HCL 100 MG TABLET PO PRN (08:49)
[2017-10-02 09:02] VITALS: BP 158/77
[2017-10-02 16:14] VITALS: BP 114/78
[2017-10-02] MEDS: DiphenhydrAMINE HCL 25 MG CAPSULE PO SCH (20:27)
[2017-10-03] MEDS: ChlorproMAZINE HCL 100 MG TABLET PO PRN (00:05)
[2017-10-03 04:25] VITALS: BP 130/66
[2017-10-03] MEDS: OMEPRAZOLE 20 MG CAPSULE PO SCH (06:31)
[2017-10-03] MEDS: VALPROIC ACID 250 MG/5 ML SYRUP UDCUP PO SCH ×2 (06:31→20:36)
[2017-10-03] MEDS: MULTIVITAMINS WITH IRON TABLET PO SCH (06:31)
[2017-10-03] MEDS: TRIHEXYPHENIDYL HCL 5 MG TABLET PO SCH ×2 (06:31→16:30)
[2017-10-03] MEDS: OLANZapine 5 MG TABLET PO SCH ×2 (06:33→20:37)
[2017-10-03 08:11] VITALS: BP 138/74
[2017-10-03] MEDS: MAGNESIUM OXIDE 400 MG TABLET PO SCH ×2 (08:58→16:31)
[2017-10-03] MEDS: NYSTATIN 15 GM POWDER BOTTLE TP SCH ×2 (08:58→16:31)
[2017-10-03] MEDS: LISINOPRIL 20 MG TABLET PO SCH (08:58)
[2017-10-03] MEDS: CHOLECALCIFEROL (VIT D3) 1,000 UNITS TABLET PO SCH (08:59)
[2017-10-03] MEDS: FUROSEMIDE 20 MG TABLET PO SCH (08:59)
[2017-10-03] MEDS: HydrALAZINE HCL 25 MG TABLET PO SCH ×3 (09:00→17:53)
[2017-10-03 16:10] VITALS: BP 116/77
[2017-10-03] MEDS: LORazepam 2 MG TABLET PO PRN (16:31)
[2017-10-03] MEDS: DiphenhydrAMINE HCL 25 MG CAPSULE PO SCH (20:36)
[2017-10-04 05:36] VITALS: BP 127/81
[2017-10-04] MEDS: OMEPRAZOLE 20 MG CAPSULE PO SCH (06:50)
[2017-10-04] MEDS: TRIHEXYPHENIDYL HCL 5 MG TABLET PO SCH ×2 (06:50→17:26)
[2017-10-04] MEDS: OLANZapine 5 MG TABLET PO SCH ×2 (06:50→21:03)
[2017-10-04] MEDS: VALPROIC ACID 250 MG/5 ML SYRUP UDCUP PO SCH ×2 (06:50→21:03)
[2017-10-04 08:07] VITALS: BP 114/85
[2017-10-04] MEDS: HydrALAZINE HCL 25 MG TABLET PO SCH ×3 (08:56→17:27)
[2017-10-04] MEDS: LISINOPRIL 20 MG TABLET PO SCH (08:56)
[2017-10-04] MEDS: MAGNESIUM OXIDE 400 MG TABLET PO SCH ×2 (08:56→17:26)
[2017-10-04] MEDS: MULTIVITAMINS WITH IRON TABLET PO SCH (08:56)
[2017-10-04] MEDS: FUROSEMIDE 20 MG TABLET PO SCH (08:56)
[2017-10-04] MEDS: CHOLECALCIFEROL (VIT D3) 1,000 UNITS TABLET PO SCH (08:58)
[2017-10-04] MEDS: NYSTATIN 15 GM POWDER BOTTLE TP SCH ×2 (09:00→17:27)
[2017-10-04] MEDS: LORazepam 2 MG TABLET PO PRN (16:21)
[2017-10-04] MEDS: ChlorproMAZINE HCL 100 MG TABLET PO PRN (16:21)
[2017-10-04 16:33] VITALS: BP 125/81
[2017-10-04] MEDS: DiphenhydrAMINE HCL 25 MG CAPSULE PO SCH (21:03)
[2017-10-05 02:43] VITALS: BP 117/78
[2017-10-05] MEDS: OMEPRAZOLE 20 MG CAPSULE PO SCH (06:46)
[2017-10-05] MEDS: TRIHEXYPHENIDYL HCL 5 MG TABLET PO SCH ×2 (06:46→17:04)
[2017-10-05] MEDS: OLANZapine 5 MG TABLET PO SCH ×2 (06:46→20:37)
[2017-10-05] MEDS: MULTIVITAMINS WITH IRON TABLET PO SCH (06:46)
[2017-10-05] MEDS: VALPROIC ACID 250 MG/5 ML SYRUP UDCUP PO SCH ×2 (06:47→20:37)
[2017-10-05] MEDS: HydrALAZINE HCL 25 MG TABLET PO SCH ×3 (08:02→17:04)
[2017-10-05] MEDS: CHOLECALCIFEROL (VIT D3) 1,000 UNITS TABLET PO SCH (08:03)
[2017-10-05] MEDS: LORazepam 2 MG TABLET PO PRN ×2 (08:03→17:44)
[2017-10-05] MEDS: NYSTATIN 15 GM POWDER BOTTLE TP SCH ×2 (08:03→17:04)
[2017-10-05] MEDS: ChlorproMAZINE HCL 100 MG TABLET PO PRN ×2 (08:03→17:44)
[2017-10-05] MEDS: FUROSEMIDE 20 MG TABLET PO SCH (08:03)
[2017-10-05] MEDS: MAGNESIUM OXIDE 400 MG TABLET PO SCH ×2 (08:03→17:04)
[2017-10-05] MEDS: LISINOPRIL 20 MG TABLET PO SCH (08:03)
[2017-10-05 08:16] VITALS: BP 111/63
[2017-10-05 16:21] VITALS: BP 124/78
[2017-10-05] MEDS: DiphenhydrAMINE HCL 25 MG CAPSULE PO SCH (20:36)
[2017-10-06] MEDS: OMEPRAZOLE 20 MG CAPSULE PO SCH (06:35)
[2017-10-06] MEDS: VALPROIC ACID 250 MG/5 ML SYRUP UDCUP PO SCH ×2 (06:35→20:43)
[2017-10-06] MEDS: MULTIVITAMINS WITH IRON TABLET PO SCH (06:35)
[2017-10-06] MEDS: TRIHEXYPHENIDYL HCL 5 MG TABLET PO SCH ×2 (06:35→17:17)
[2017-10-06] MEDS: OLANZapine 5 MG TABLET PO SCH ×2 (06:36→20:44)
[2017-10-06 07:08] VITALS: BP 130/78
[2017-10-06 08:57] VITALS: BP 108/65
[2017-10-06] MEDS: LISINOPRIL 20 MG TABLET PO SCH (09:00)
[2017-10-06] MEDS: HydrALAZINE HCL 25 MG TABLET PO SCH ×3 (09:00→17:17)
[2017-10-06] MEDS: FUROSEMIDE 20 MG TABLET PO SCH (09:00)
[2017-10-06] MEDS: NYSTATIN 15 GM POWDER BOTTLE TP SCH ×2 (09:31→17:18)
[2017-10-06] MEDS: LORazepam 2 MG TABLET PO PRN ×2 (09:31→16:20)
[2017-10-06] MEDS: MAGNESIUM OXIDE 400 MG TABLET PO SCH ×2 (09:31→17:18)
[2017-10-06] MEDS: CHOLECALCIFEROL (VIT D3) 1,000 UNITS TABLET PO SCH (09:31)
[2017-10-06] MEDS: ChlorproMAZINE HCL 100 MG TABLET PO PRN ×2 (09:31→16:20)
[2017-10-06 13:10] VITALS: BP 118/92
[2017-10-06 16:01] VITALS: BP 115/64
[2017-10-06] MEDS: DiphenhydrAMINE HCL 25 MG CAPSULE PO SCH (20:43)
[2017-10-07] MEDS: OMEPRAZOLE 20 MG CAPSULE PO SCH (06:30)
[2017-10-07] MEDS: MULTIVITAMINS WITH IRON TABLET PO SCH (06:30)
[2017-10-07] MEDS: TRIHEXYPHENIDYL HCL 5 MG TABLET PO SCH ×2 (06:30→16:26)
[2017-10-07] MEDS: VALPROIC ACID 250 MG/5 ML SYRUP UDCUP PO SCH ×2 (06:30→20:41)
[2017-10-07] MEDS: OLANZapine 5 MG TABLET PO SCH ×2 (06:31→20:41)
[2017-10-07 06:37] VITALS: BP 135/86
[2017-10-07 08:23] VITALS: BP 108/60
[2017-10-07] MEDS: HydrALAZINE HCL 25 MG TABLET PO SCH ×3 (08:29→16:26)
[2017-10-07] MEDS: MAGNESIUM OXIDE 400 MG TABLET PO SCH ×2 (08:29→16:26)
[2017-10-07] MEDS: CHOLECALCIFEROL (VIT D3) 1,000 UNITS TABLET PO SCH (08:29)
[2017-10-07] MEDS: FUROSEMIDE 20 MG TABLET PO SCH (08:29)
[2017-10-07] MEDS: LISINOPRIL 20 MG TABLET PO SCH (08:29)
[2017-10-07] MEDS: LORazepam 2 MG TABLET PO PRN ×3 (08:30→17:41)
[2017-10-07] MEDS: ChlorproMAZINE HCL 100 MG TABLET PO PRN ×3 (08:30→17:41)
[2017-10-07] MEDS: NYSTATIN 15 GM POWDER BOTTLE TP SCH ×2 (08:30→16:26)
[2017-10-07 16:15] VITALS: BP 138/75
[2017-10-07] MEDS: MUPIROCIN CALCIUM 2% 22 GM OINTMENT NASAL SCH (16:26)
[2017-10-07] MEDS: DiphenhydrAMINE HCL 25 MG CAPSULE PO SCH (20:41)
[2017-10-08 06:02] VITALS: BP 118/90
[2017-10-08] MEDS: OLANZapine 5 MG TABLET PO SCH ×2 (06:28→20:33)
[2017-10-08] MEDS: OMEPRAZOLE 20 MG CAPSULE PO SCH (06:28)
[2017-10-08] MEDS: VALPROIC ACID 250 MG/5 ML SYRUP UDCUP PO SCH ×2 (06:28→20:33)
[2017-10-08] MEDS: MULTIVITAMINS WITH IRON TABLET PO SCH (06:28)
[2017-10-08] MEDS: TRIHEXYPHENIDYL HCL 5 MG TABLET PO SCH ×2 (06:28→17:03)
[2017-10-08 08:24] VITALS: BP 120/69
[2017-10-08] MEDS: NYSTATIN 15 GM POWDER BOTTLE TP SCH ×2 (09:03→17:04)
[2017-10-08] MEDS: MUPIROCIN CALCIUM 2% 22 GM OINTMENT NASAL SCH ×2 (09:03→17:03)
[2017-10-08] MEDS: MAGNESIUM OXIDE 400 MG TABLET PO SCH ×2 (09:03→17:03)
[2017-10-08] MEDS: CHOLECALCIFEROL (VIT D3) 1,000 UNITS TABLET PO SCH (09:03)
[2017-10-08] MEDS: LISINOPRIL 20 MG TABLET PO SCH (09:03)
[2017-10-08] MEDS: HydrALAZINE HCL 25 MG TABLET PO SCH ×3 (09:03→17:03)
[2017-10-08] MEDS: FUROSEMIDE 20 MG TABLET PO SCH (09:03)
[2017-10-08] MEDS: ChlorproMAZINE HCL 100 MG TABLET PO PRN ×2 (09:51→16:08)
[2017-10-08] MEDS: LORazepam 2 MG TABLET PO PRN ×2 (09:51→16:08)
[2017-10-08 16:10] VITALS: BP 115/65
[2017-10-08] MEDS: DiphenhydrAMINE HCL 25 MG CAPSULE PO SCH (20:33)
[2017-10-09] MEDS: TRIHEXYPHENIDYL HCL 5 MG TABLET PO SCH ×2 (06:44→17:55)
[2017-10-09] MEDS: OMEPRAZOLE 20 MG CAPSULE PO SCH (06:44)
[2017-10-09] MEDS: VALPROIC ACID 250 MG/5 ML SYRUP UDCUP PO SCH ×2 (06:44→20:31)
[2017-10-09] MEDS: MULTIVITAMINS WITH IRON TABLET PO SCH (06:44)
[2017-10-09] MEDS: OLANZapine 5 MG TABLET PO SCH ×2 (06:44→20:31)
[2017-10-09 06:55] VITALS: BP 122/70
[2017-10-09 08:10] VITALS: BP 114/87
[2017-10-09] MEDS: LISINOPRIL 20 MG TABLET PO SCH (08:37)
[2017-10-09] MEDS: MUPIROCIN CALCIUM 2% 22 GM OINTMENT NASAL SCH ×2 (08:37→17:25)
[2017-10-09] MEDS: NYSTATIN 15 GM POWDER BOTTLE TP SCH ×2 (08:37→17:55)
[2017-10-09] MEDS: MAGNESIUM OXIDE 400 MG TABLET PO SCH ×2 (08:37→17:55)
[2017-10-09] MEDS: HydrALAZINE HCL 25 MG TABLET PO SCH ×3 (08:37→17:55)
[2017-10-09] MEDS: FUROSEMIDE 20 MG TABLET PO SCH (08:37)
[2017-10-09] MEDS: CHOLECALCIFEROL (VIT D3) 1,000 UNITS TABLET PO SCH (08:37)
[2017-10-09] MEDS: ChlorproMAZINE HCL 100 MG TABLET PO PRN ×2 (09:04→17:23)
[2017-10-09] MEDS: LORazepam 2 MG TABLET PO PRN ×2 (09:05→17:23)
[2017-10-09 17:50] VITALS: BP 126/66
[2017-10-09] MEDS: DiphenhydrAMINE HCL 25 MG CAPSULE PO SCH (20:31)
[2017-10-10 05:50] VITALS: BP 135/77
[2017-10-10] MEDS: OMEPRAZOLE 20 MG CAPSULE PO SCH (06:11)
[2017-10-10] MEDS: TRIHEXYPHENIDYL HCL 5 MG TABLET PO SCH ×2 (06:44→16:20)
[2017-10-10] MEDS: VALPROIC ACID 250 MG/5 ML SYRUP UDCUP PO SCH ×2 (06:44→20:16)
[2017-10-10] MEDS: OLANZapine 5 MG TABLET PO SCH ×2 (06:44→20:16)
[2017-10-10] MEDS: MULTIVITAMINS WITH IRON TABLET PO SCH (06:58)
[2017-10-10 07:38] LABS: EOSINOPHILS % (AUTO) 3.8 % (1.0-6.0); HEMATOCRIT 34.2 % (36-46); HEMOGLOBIN 11.9 g/dL (12.0-16.0); LYMPHOCYTES # (AUTO) 1.1 K/uL (1.0-4.8); LYMPHOCYTES % (AUTO) 44.3 % (22.0-44.0); MEAN CORPUSCULAR HEMOGLOBIN 33.8 pg (26.0-34.0); MEAN CORPUSCULAR HGB CONC 34.7 G/dL (31.0-37.0); MEAN CORPUSCULAR VOLUME 98 fL (80-100); MONOCYTES # (AUTO) 0.4 K/uL (0.1-1.0); MONOCYTES % (AUTO) 15.5 % (2.0-9.0); NEUTROPHILS # (AUTO) 0.8 K/uL (1.8-7.7); NEUTROPHILS % (AUTO) 35.4 % (40.0-70.0); PLATELET COUNT (AUTO) 177 K/uL (150-450); RED BLOOD CELL COUNT(AUTO) 3.51 MIL/uL (4.00-5.20); RED CELL DISTRIBUTION WIDTH 12.7 % (11.5-14.5)
[2017-10-10 07:47] LABS: ALANINE AMINOTRANSFERASE 17 U/L (12-78); ALBUMIN 3.4 g/dL (3.4-5.0); ALKALINE PHOSPHATASE 65 U/L (46-116); ASPARTATE AMINOTRANSFERASE 12 U/L (15-37); BILIRUBIN,TOTAL 0.1 mg/dL (0.1-1.0); TOTAL PROTEIN, SERUM 6.6 g/dL (6.4-8.2); VALPROIC ACID 89 mcg/mL (50-100)
[2017-10-10 07:54] LABS: BILIRUBIN,DIRECT < 0.05 mg/dL (0.00-0.20)
[2017-10-10 08:25] VITALS: BP 132/78
[2017-10-10] MEDS: MUPIROCIN CALCIUM 2% 22 GM OINTMENT NASAL SCH ×2 (09:01→16:17)
[2017-10-10] MEDS: LISINOPRIL 20 MG TABLET PO SCH (09:02)
[2017-10-10] MEDS: HydrALAZINE HCL 25 MG TABLET PO SCH ×3 (09:02→16:17)
[2017-10-10] MEDS: CHOLECALCIFEROL (VIT D3) 1,000 UNITS TABLET PO SCH (09:02)
[2017-10-10] MEDS: LORazepam 2 MG TABLET PO PRN ×2 (09:02→14:31)
[2017-10-10] MEDS: MAGNESIUM OXIDE 400 MG TABLET PO SCH ×2 (09:02→16:20)
[2017-10-10] MEDS: NYSTATIN 15 GM POWDER BOTTLE TP SCH ×2 (09:02→16:17)
[2017-10-10] MEDS: FUROSEMIDE 20 MG TABLET PO SCH (09:02)
[2017-10-10] MEDS: ChlorproMAZINE HCL 100 MG TABLET PO PRN ×2 (09:02→14:31)
[2017-10-10 16:12] VITALS: BP 122/78
[2017-10-10] MEDS: DiphenhydrAMINE HCL 25 MG CAPSULE PO SCH (20:16)
[2017-10-11 02:36] VITALS: BP 127/79
[2017-10-11] MEDS: OMEPRAZOLE 20 MG CAPSULE PO SCH (06:12)
[2017-10-11] MEDS: OLANZapine 5 MG TABLET PO SCH ×2 (06:12→20:07)
[2017-10-11] MEDS: VALPROIC ACID 250 MG/5 ML SYRUP UDCUP PO SCH ×2 (06:12→20:07)
[2017-10-11] MEDS: TRIHEXYPHENIDYL HCL 5 MG TABLET PO SCH ×2 (06:12→16:26)
[2017-10-11] MEDS: MULTIVITAMINS WITH IRON TABLET PO SCH (06:34)
[2017-10-11] MEDS: NYSTATIN 15 GM POWDER BOTTLE TP SCH ×2 (08:17→16:26)
[2017-10-11] MEDS: MUPIROCIN CALCIUM 2% 22 GM OINTMENT NASAL SCH ×2 (08:17→16:26)
[2017-10-11] MEDS: LISINOPRIL 20 MG TABLET PO SCH (08:18)
[2017-10-11] MEDS: FUROSEMIDE 20 MG TABLET PO SCH (08:18)
[2017-10-11] MEDS: MAGNESIUM OXIDE 400 MG TABLET PO SCH ×2 (08:18→16:26)
[2017-10-11] MEDS: HydrALAZINE HCL 25 MG TABLET PO SCH ×3 (08:18→16:26)
[2017-10-11] MEDS: CHOLECALCIFEROL (VIT D3) 1,000 UNITS TABLET PO SCH (08:18)
[2017-10-11 08:25] VITALS: BP 118/75
[2017-10-11] MEDS: LORazepam 2 MG TABLET PO PRN ×2 (08:25→16:26)
[2017-10-11] MEDS: ChlorproMAZINE HCL 100 MG TABLET PO PRN ×2 (09:16→16:26)
[2017-10-11 16:12] VITALS: BP 131/89
[2017-10-11] MEDS: DiphenhydrAMINE HCL 25 MG CAPSULE PO SCH (20:07)
[2017-10-12 00:58] VITALS: BP 117/81
[2017-10-12] MEDS: OMEPRAZOLE 20 MG CAPSULE PO SCH (06:48)
[2017-10-12] MEDS: TRIHEXYPHENIDYL HCL 5 MG TABLET PO SCH ×2 (07:04→16:37)
[2017-10-12] MEDS: MULTIVITAMINS WITH IRON TABLET PO SCH (07:04)
[2017-10-12] MEDS: OLANZapine 5 MG TABLET PO SCH ×2 (07:04→20:23)
[2017-10-12] MEDS: VALPROIC ACID 250 MG/5 ML SYRUP UDCUP PO SCH ×2 (07:05→20:22)
[2017-10-12 08:08] VITALS: BP 125/82
[2017-10-12] MEDS: CHOLECALCIFEROL (VIT D3) 1,000 UNITS TABLET PO SCH (08:39)
[2017-10-12] MEDS: LISINOPRIL 20 MG TABLET PO SCH (08:39)
[2017-10-12] MEDS: MAGNESIUM OXIDE 400 MG TABLET PO SCH ×2 (08:40→16:37)
[2017-10-12] MEDS: FUROSEMIDE 20 MG TABLET PO SCH (08:40)
[2017-10-12] MEDS: HydrALAZINE HCL 25 MG TABLET PO SCH ×3 (08:40→16:37)
[2017-10-12] MEDS: MUPIROCIN CALCIUM 2% 22 GM OINTMENT NASAL SCH (08:42)
[2017-10-12] MEDS: NYSTATIN 15 GM POWDER BOTTLE TP SCH ×2 (09:00→16:40)
[2017-10-12 16:05] VITALS: BP 164/110
[2017-10-12 17:26] VITALS: BP 138/88
[2017-10-12] MEDS: DiphenhydrAMINE HCL 25 MG CAPSULE PO SCH (20:23)
[2017-10-13] MEDS: ChlorproMAZINE HCL 100 MG TABLET PO PRN ×3 (01:28→16:04)
[2017-10-13 01:38] VITALS: BP 131/71
[2017-10-13] MEDS: TRIHEXYPHENIDYL HCL 5 MG TABLET PO SCH ×2 (06:32→17:06)
[2017-10-13] MEDS: MULTIVITAMINS WITH IRON TABLET PO SCH (06:32)
[2017-10-13] MEDS: OMEPRAZOLE 20 MG CAPSULE PO SCH (06:32)
[2017-10-13] MEDS: OLANZapine 5 MG TABLET PO SCH ×2 (06:33→20:14)
[2017-10-13] MEDS: VALPROIC ACID 250 MG/5 ML SYRUP UDCUP PO SCH ×2 (06:33→20:14)
[2017-10-13 08:30] VITALS: BP 124/78
[2017-10-13] MEDS: CHOLECALCIFEROL (VIT D3) 1,000 UNITS TABLET PO SCH (08:35)
[2017-10-13] MEDS: FUROSEMIDE 20 MG TABLET PO SCH (08:35)
[2017-10-13] MEDS: LISINOPRIL 20 MG TABLET PO SCH (08:35)
[2017-10-13] MEDS: NYSTATIN 15 GM POWDER BOTTLE TP SCH ×2 (08:35→17:06)
[2017-10-13] MEDS: MAGNESIUM OXIDE 400 MG TABLET PO SCH ×2 (08:35→17:06)
[2017-10-13] MEDS: HydrALAZINE HCL 25 MG TABLET PO SCH ×3 (08:35→17:05)
[2017-10-13] MEDS: LORazepam 2 MG TABLET PO PRN ×2 (09:24→16:04)
[2017-10-13 16:11] VITALS: BP 116/68
[2017-10-13] MEDS: DiphenhydrAMINE HCL 25 MG CAPSULE PO SCH (20:14)
[2017-10-14] MEDS: OMEPRAZOLE 20 MG CAPSULE PO SCH (06:33)
[2017-10-14] MEDS: TRIHEXYPHENIDYL HCL 5 MG TABLET PO SCH ×2 (06:33→17:18)
[2017-10-14] MEDS: OLANZapine 5 MG TABLET PO SCH ×2 (06:34→21:01)
[2017-10-14] MEDS: MULTIVITAMINS WITH IRON TABLET PO SCH (06:34)
[2017-10-14] MEDS: VALPROIC ACID 250 MG/5 ML SYRUP UDCUP PO SCH ×2 (06:34→21:00)
[2017-10-14 08:13] VITALS: BP 157/86
[2017-10-14] MEDS: HydrALAZINE HCL 25 MG TABLET PO SCH ×3 (08:20→17:17)
[2017-10-14] MEDS: LISINOPRIL 20 MG TABLET PO SCH (08:20)
[2017-10-14] MEDS: LORazepam 2 MG TABLET PO PRN ×2 (08:20→17:18)
[2017-10-14] MEDS: CHOLECALCIFEROL (VIT D3) 1,000 UNITS TABLET PO SCH (08:20)
[2017-10-14] MEDS: NYSTATIN 15 GM POWDER BOTTLE TP SCH ×2 (08:20→17:17)
[2017-10-14] MEDS: FUROSEMIDE 20 MG TABLET PO SCH (08:20)
[2017-10-14] MEDS: MAGNESIUM OXIDE 400 MG TABLET PO SCH ×2 (08:20→17:17)
[2017-10-14] MEDS: ChlorproMAZINE HCL 100 MG TABLET PO PRN ×2 (09:17→17:18)
[2017-10-14] MEDS ORDERED: TUBERCULIN, PURIFIED PROTEIN DERIVATIVE 5 TU/0.1 ML SYG ID ONE (10:00)
[2017-10-14] MEDS ORDERED: PNEUMOCOCCAL VACCINE POLYVALENT 0.5 ML VIAL [PPSV23] IM ONE (10:00)
[2017-10-14] MEDS ORDERED: HEPATITIS A VACCINE, INACTI [ADULT] 1,440 UNITS/ML VIAL IM ONE (10:00)
[2017-10-14 13:00] VITALS: BP 121/82
[2017-10-14 16:05] VITALS: BP 115/61
[2017-10-14] MEDS: DiphenhydrAMINE HCL 25 MG CAPSULE PO SCH (21:00)
[2017-10-15] MEDS: OMEPRAZOLE 20 MG CAPSULE PO SCH ×2 (06:30→06:53)
[2017-10-15] MEDS: TRIHEXYPHENIDYL HCL 5 MG TABLET PO SCH ×3 (06:53→16:49)
[2017-10-15] MEDS: OLANZapine 5 MG TABLET PO SCH ×3 (06:53→20:04)
[2017-10-15] MEDS: MULTIVITAMINS WITH IRON TABLET PO SCH ×2 (06:53→07:09)
[2017-10-15] MEDS: VALPROIC ACID 250 MG/5 ML SYRUP UDCUP PO SCH ×3 (06:54→20:03)
[2017-10-15] MEDS: MAGNESIUM OXIDE 400 MG TABLET PO SCH ×2 (08:31→16:49)
[2017-10-15] MEDS: FUROSEMIDE 20 MG TABLET PO SCH (08:31)
[2017-10-15] MEDS: NYSTATIN 15 GM POWDER BOTTLE TP SCH ×2 (08:31→16:49)
[2017-10-15] MEDS: HydrALAZINE HCL 25 MG TABLET PO SCH ×3 (08:31→16:49)
[2017-10-15] MEDS: CHOLECALCIFEROL (VIT D3) 1,000 UNITS TABLET PO SCH (08:31)
[2017-10-15] MEDS: LISINOPRIL 20 MG TABLET PO SCH (08:31)
[2017-10-15 08:35] VITALS: BP 118/72
[2017-10-15] MEDS: ChlorproMAZINE HCL 100 MG TABLET PO PRN ×2 (08:57→16:49)
[2017-10-15] MEDS: LORazepam 2 MG TABLET PO PRN ×2 (08:57→16:49)
[2017-10-15 16:05] VITALS: BP 104/65
[2017-10-15] MEDS: DiphenhydrAMINE HCL 25 MG CAPSULE PO SCH (20:04)
[2017-10-16 03:28] VITALS: BP 136/76
[2017-10-16] MEDS: OMEPRAZOLE 20 MG CAPSULE PO SCH (06:30)
[2017-10-16] MEDS: OLANZapine 5 MG TABLET PO SCH (07:00)
[2017-10-16] MEDS: TRIHEXYPHENIDYL HCL 5 MG TABLET PO SCH ×2 (07:00→16:03)
[2017-10-16] MEDS: MULTIVITAMINS WITH IRON TABLET PO SCH (07:00)
[2017-10-16] MEDS: VALPROIC ACID 250 MG/5 ML SYRUP UDCUP PO SCH (07:00)
[2017-10-16 08:29] VITALS: BP 131/76
[2017-10-16 09:05] LABS: HEMOGLOBIN 11.1 g/dL (12.0-16.0); MEAN CORPUSCULAR HEMOGLOBIN 34.8 pg (26.0-34.0); MEAN CORPUSCULAR HGB CONC 35.9 G/dL (31.0-37.0); MEAN CORPUSCULAR VOLUME 97 fL (80-100); PLATELET COUNT (AUTO) 179 K/uL (150-450); RED CELL DISTRIBUTION WIDTH 12.6 % (11.5-14.5)
[2017-10-16] MEDS: CHOLECALCIFEROL (VIT D3) 1,000 UNITS TABLET PO SCH (09:15)
[2017-10-16] MEDS: NYSTATIN 15 GM POWDER BOTTLE TP SCH ×2 (09:16→16:03)
[2017-10-16] MEDS: LISINOPRIL 20 MG TABLET PO SCH (09:16)
[2017-10-16] MEDS: MAGNESIUM OXIDE 400 MG TABLET PO SCH ×2 (09:16→16:03)
[2017-10-16] MEDS: FUROSEMIDE 20 MG TABLET PO SCH (09:16)
[2017-10-16] MEDS: HydrALAZINE HCL 25 MG TABLET PO SCH ×3 (09:17→16:03)
[2017-10-16 09:56] LABS: CREATININE 1.03 mg/dL (0.60-1.30); MAGNESIUM 1.7 mg/dL (1.80-2.40); PHOSPHORUS 3.7 mg/dL (2.5-4.9)
[2017-10-16 10:46] LABS: BAND NEUTROPHILS % (MANUAL) 2 % (0-5); LYMPHOCYTES % (MANUAL) 21 % (22-44); MONOCYTES % (MANUAL) 5 % (2-9); SEGMENTED NEUTROPHILS % 72 % (40-70)
[2017-10-16 16:01] VITALS: BP_SYST 104; BP_SYST 107; BP_DIAS 70; BP_DIAS 71
[2017-10-16] MEDS ORDERED: HYDR25TA84 PO (16:29)
[2017-10-16] MEDS ORDERED: MAGOX PO (16:30)
[2017-10-16] MEDS ORDERED: FURO20 PO (16:31)
[2017-10-16] MEDS ORDERED: LISI-662 PO (16:31)
[2017-10-16] MEDS ORDERED: OMEP20 PO (16:31)
[2017-10-16] MEDS ORDERED: VALP250S23 PO ×2 (16:32→16:33)
[2017-10-16] MEDS ORDERED: DIPH25CA85 PO (16:32)
[2017-10-16] MEDS ORDERED: TRIH5TAB2 PO (16:32)
[2017-10-16] MEDS ORDERED: OLAN5TAB2 PO ×3 (16:33→16:34)
== END 2017-10-16 16:50 | DRG 750 ==
LOC: EDSTATUS 17:27 → B2S 18:15 → B3A 05-19 11:06
PROVIDERS: ADMIT Psychiatry & Neurology Psychiatry; ATTEND Psychiatry & Neurology Psychiatry
PROC: 3E0234Z Introduction of Serum, Toxoid and Vaccine into Muscle, Percutaneous Approach (ICD-10-PCS; principal; 2017-10-14)
PROC: 3E0234Z Introduction of Serum, Toxoid and Vaccine into Muscle, Percutaneous Approach (ICD-10-PCS; 2017-10-14)
DX: F25.0 Schizoaffective disorder, bipolar type (principal); L03.115 Cellulitis of right lower limb; E87.5 Hyperkalemia; E66.01 Morbid (severe) obesity due to excess calories; L03.116 Cellulitis of left lower limb; I10 Essential (primary) hypertension; B35.6 Tinea cruris; E55.9 Vitamin D deficiency, unspecified; F17.200 Nicotine dependence, unspecified, uncomplicated; E78.5 Hyperlipidemia, unspecified; G47.00 Insomnia, unspecified; J44.9 Chronic obstructive pulmonary disease, unspecified; K21.9 Gastro-esophageal reflux disease without esophagitis; K59.00 Constipation, unspecified; M19.90 Unspecified osteoarthritis, unspecified site; Z88.5 Allergy status to narcotic agent; Z91.19 Patient's noncompliance with other medical treatment and regimen; Z71.6 Tobacco abuse counseling; Z23 Encounter for immunization; Z68.38 Body mass index [BMI] 38.0-38.9, adult
CPT/HCPCS: 80307; 82306; 83036; 83540; 83550; 83735; 84100; 84132; 84295; 84439; 84443; 85007; 85032; 87081; 90471; 90632; J1200; J1630; J2060; J3490; J3535; Q0162